=== PATIENT | female | born 1980 | race Caucasian/White ===

== ENCOUNTER 2016-06-28 20:47 | Emergency (ER) | payer OTHER ==
[2016-06-28 20:58] VITALS: RESP 18
--- NOTE | 2016-06-28 21:56 | ED ---
ENT HPI - General Chief complaint: ENT Stated complaint: Sore Throat Time Seen by Provider: 06/28/16 21:18 Source: patient, RN notes reviewed Mode of arrival: ambulatory Limitations: no limitations - History of Present Illness Initial comments: patient is a 35-year-old female since emergency room for evaluation of throat pain. Patient states she's diagnosed with strep throat about a week ago by primary care provider. Patient states she was placed on cefadroxil antibiotics. Patient states after taking it for a day it was not helping her symptoms so she went to [facility]. Patient states they gave her an antibiotic shot. patient states she still wasn't feeling better so she came back to [facility] today. patient states that they started blood work and they refused to give her any pain medications through the IV so she came here instead. patient states she has pain every time she swallows. Patient states she's been having on and off fevers. patient denies nausea or vomiting. Patient's chest pain or shortness of breath. Patient states she is up-to-date on immunizations. - Related Data Home Medications Medication Instructions Recorded Confirmed ALPRAZolam [Xanax] 1 mg PO Q8HR 11/28/14 12/16/15 Buprenorphine HCl/Naloxone HCl 1 each SL BID 04/14/15 12/16/15 [Suboxone 8 mg-2 mg Sl Film] Previous Rx's Medication Instructions Recorded Ibuprofen [Motrin] 800 mg PO Q6HR PRN #20 tab 04/14/15 LORazepam [Ativan] 1 mg PO TID #6 tab 10/21/15 levETIRAcetam [Keppra] 1,000 mg PO Q12HR #4 tab 10/21/15 LORazepam [Ativan] 1 mg PO BID #10 tab 12/16/15 methylPREDNISolone Dose Pack 4 mg PO DIRECTED #21 package 06/28/16 [Medrol Dose Pack] Allergies Allergy/AdvReac Type Severity Reaction Status Date / Time sulfamethoxazole AdvReac Diarrhea Verified 06/28/16 20:58 [From Bactrim] trimethoprim [From Bactrim] AdvReac Diarrhea Verified 06/28/16 20:58 Review of Systems ROS Statement: Those systems with pertinent positive or pertinent negative responses have been documented in the HPI. ROS Other: All systems not noted in ROS Statement are negative. Past Medical History Past Medical History: Asthma, GERD/Reflux, Seizure Disorder History of Any Multi-Drug Resistant Organisms: None Reported Past Surgical History: Appendectomy, Cholecystectomy, Hysterectomy Past Psychological History: Anxiety, Bipolar, PTSD Smoking Status: Current every day smoker Past Alcohol Use History: None Reported Past Drug Use History: Heroin General Exam - General Exam Comments Initial Comments: Sitting in Exam Room, No Acute Distress. Limitations: no limitations General appearance: alert, in no apparent distress Head exam: Present: atraumatic, normocephalic, normal inspection Eye exam: Present: normal appearance Expanded Throat exam: tonsillar erythema, tonsillomegaly, tonsillar exudate Neck exam: Present: normal inspection, full ROM. Absent: tenderness, lymphadenopathy Respiratory exam: Present: normal lung sounds bilaterally. Absent: respiratory distress Cardiovascular Exam: Present: regular rate, normal rhythm, normal heart sounds Extremities exam: Present: normal inspection Back exam: Present: normal inspection Neurological exam: Present: alert, oriented X3, CN II-XII intact Psychiatric exam: Present: normal affect, normal mood Skin exam: Present: warm, dry, intact, normal color. Absent: rash Course Vital Signs 06/28/16 20:52 Temperature 98.3 F Pulse Rate 83 Respiratory 18 Rate Blood Pressure 108/64 O2 Sat by Pulse 98 Oximetry Medical Decision Making - Medical Decision Making patient is a 35 female since emergency room for evaluation of throat pain. Patient has been seen 3 times this week for throat pain. rapid strep negative. Heterophile negative. CBC within normal limits. Will start patient on Medrol Dosepak to help with swelling. Advised patient to follow-up with primary care provider Thursday. Return parameters discussed. Case discussed with Dr. Singh. - Lab Data Result diagrams: 06/28/16 22:26 06/28/16 22:26 Lab Results 06/28/16 06/28/16 06/28/16 Range/Units 22:26 22:26 22:26 WBC 7.2 (3.8-10.6) k/uL RBC 4.37 (3.80-5.40) m/uL Hgb 12.9 (11.4-16.0) gm/dL Hct 38.3 (34.0-46.0) % MCV 87.6 (80.0-100.0) fL MCH 29.6 (25.0-35.0) pg MCHC 33.8 (31.0-37.0) g/dL RDW 13.1 (11.5-15.5) % Plt Count 309 (150-450) k/uL Neutrophils % 48 % Lymphocytes % 38 % Monocytes % 6 % Eosinophils % 5 % Basophils % 1 % Neutrophils # 3.5 (1.3-7.7) k/uL Lymphocytes # 2.8 (1.0-4.8) k/uL Monocytes # 0.4 (0-1.0) k/uL Eosinophils # 0.3 (0-0.7) k/uL Basophils # 0.1 (0-0.2) k/uL Sodium 146 H (137-145) mmol/L Potassium 3.6 (3.5-5.1) mmol/L Chloride 105 (98-107) mmol/L Carbon Dioxide 30 (22-30) mmol/L Anion Gap 11 mmol/L BUN 10 (7-17) mg/dL Creatinine 0.60 (0.52-1.04) mg/dL Est GFR (MDRD) Af Amer >60 (>60 ml/min/1.73 sqM) Est GFR (MDRD) Non-Af >60 (>60 ml/min/1.73 sqM) Glucose 91 (74-99) mg/dL Calcium 9.7 (8.4-10.2) mg/dL Total Bilirubin 0.3 (0.2-1.3) mg/dL AST 15 (14-36) U/L ALT 27 (9-52) U/L Alkaline Phosphatase 83 (38-126) U/L Total Protein 6.4 (6.3-8.2) g/dL Albumin 4.0 (3.5-5.0) g/dL Heterophile Antibody Negative (Negative) Group A Strep Rapid (Negative) 06/28/16 Range/Units 22:26 WBC (3.8-10.6) k/uL RBC (3.80-5.40) m/uL Hgb (11.4-16.0) gm/dL Hct (34.0-46.0) % MCV (80.0-100.0) fL MCH (25.0-35.0) pg MCHC (31.0-37.0) g/dL RDW (11.5-15.5) % Plt Count (150-450) k/uL Neutrophils % % Lymphocytes % % Monocytes % % Eosinophils % % Basophils % % Neutrophils # (1.3-7.7) k/uL Lymphocytes # (1.0-4.8) k/uL Monocytes # (0-1.0) k/uL Eosinophils # (0-0.7) k/uL Basophils # (0-0.2) k/uL Sodium (137-145) mmol/L Potassium (3.5-5.1) mmol/L Chloride (98-107) mmol/L Carbon Dioxide (22-30) mmol/L Anion Gap mmol/L BUN (7-17) mg/dL Creatinine (0.52-1.04) mg/dL Est GFR (MDRD) Af Amer (>60 ml/min/1.73 sqM) Est GFR (MDRD) Non-Af (>60 ml/min/1.73 sqM) Glucose (74-99) mg/dL Calcium (8.4-10.2) mg/dL Total Bilirubin (0.2-1.3) mg/dL AST (14-36) U/L ALT (9-52) U/L Alkaline Phosphatase (38-126) U/L Total Protein (6.3-8.2) g/dL Albumin (3.5-5.0) g/dL Heterophile Antibody (Negative) Group A Strep Rapid Negative (Negative) Disposition Clinical Impression: Pharyngitis Disposition: HOME SELF-CARE Condition: Good Instructions: Pharyngitis (ED) Additional Instructions: Take Medrol Dosepak as directed. Saltwater gargles. Please follow up with primary care provider on Thursday. If any new symptom arises or symptoms worsen, return to ER as soon as possible. Prescriptions: methylPREDNISolone Dose Pack [Medrol Dose Pack] 4 mg PO DIRECTED #21 package Referrals: Augustine Chairez DO [Primary Care Provider] - 1-2 days Time of Disposition: 23:35
[2016-06-28] MEDS ORDERED: LIDOCAINE VISCOUS 2% 15 ML CUP MUCOUS MEM ONE (21:59)
[2016-06-28 22:54] LABS: Basophils # (A) 0.1 k/uL (0-0.2); Basophils % (A) 1 %; CHCM 34.4; Eosinophils # (A) 0.3 k/uL (0-0.7); Eosinophils % (A) 5 %; HCT 38.3 % (34.0-46.0); HDW 2.84; HGB 12.9 gm/dL (11.4-16.0); Luc # (Auto) 0.19; Luc % (Auto) 3; Lymphocytes # (A) 2.8 k/uL (1.0-4.8); Lymphocytes % (A) 38 %; MCH 29.6 pg (25.0-35.0); MCHC 33.8 g/dL (31.0-37.0); MCV 87.6 fL (80.0-100.0); Mean Platelet Volume 7.2; Monocytes # (A) 0.4 k/uL (0-1.0); Monocytes % (A) 6 %; Neutrophils # (A) 3.5 k/uL (1.3-7.7); Neutrophils % (A) 48 %; RBC 4.37 m/uL (3.80-5.40); RDW 13.1 % (11.5-15.5); WBC 7.2 k/uL (3.8-10.6); WBC (Perox) 7.17
[2016-06-28 23:04] LABS: ALT 27 U/L (9-52); AST 15 U/L (14-36); Alkaline Phosphatase 83 U/L (38-126); Anion Gap 11 mmol/L; Blood Urea Nitrogen 10 mg/dL (7-17); Calcium 9.7 mg/dL (8.4-10.2); Carbon Dioxide 30 mmol/L (22-30); Chloride 105 mmol/L (98-107); Glucose 91 mg/dL (74-99); Non-African American GFR(MDRD) >60 (>60 ml/min/1.73 sqM); Potassium 3.6 mmol/L (3.5-5.1); Sodium 146 mmol/L (137-145); Total Bilirubin 0.3 mg/dL (0.2-1.3); Total Protein 6.4 g/dL (6.3-8.2)
[2016-06-28] MEDS ORDERED: methylPREDNISolone SOD SUCCI 125 MG/2 ML VIAL IV STA (23:37)
[2016-06-29 00:02] VITALS: BP 115/72; PULSE 78; TEMP 98.1
== END 2016-06-29 00:02 | disposition home or self-care (01) ==
LOC: EC 20:47
DX: J02.9 Acute pharyngitis, unspecified (principal); F31.9 Bipolar disorder, unspecified; F41.9 Anxiety disorder, unspecified; Z53.20 Procedure and treatment not carried out because of patient's decision for unspecified reasons; F17.200 Nicotine dependence, unspecified, uncomplicated; Z79.899 Other long term (current) drug therapy; Z88.2 Allergy status to sulfonamides
CPT/HCPCS: 36415; 80053; 85025; 86308; 87081; 87430; 99283

== ENCOUNTER 2017-02-16 10:00 | Emergency (ER) | payer OTHER ==
[2017-02-16 10:12] VITALS: RESP 18
--- NOTE | 2017-02-16 10:43 | ED ---
General Adult HPI - General Chief complaint: Psychiatric Symptoms Stated complaint: Suicidal Time Seen by Provider: 02/16/17 10:00 Source: patient, EMS, RN notes reviewed Mode of arrival: EMS Limitations: no limitations - History of Present Illness Initial comments: This is a 36-year-old female who presents emergency department stating that she has been having some suicidal thoughts even though she does not believe she'll act on them her depression is gotten much worse since before Daniel and she needs some help so she is reaching out to us today to see if we can point or in the right direction or maybe get her hooked up with a psychiatrist. Patient denies any physical complaints today. Patient denies any headache patient denies numbness weakness. Patient denies any chest pain palpitations difficulty breathing shortest breath. Patient denies abdominal pain patient denies nausea vomiting diarrhea. Patient states she is a former drug user and has not used any illegal drugs for 2 months - Related Data Home Medications Medication Instructions Recorded Confirmed Buprenorphine HCl/Naloxone HCl 1 film SL BID@0500,1500 04/14/15 02/16/17 [Suboxone 8 mg-2 mg Sl Film] Albuterol Inhaler [Ventolin Hfa 1 - 2 puff INHALATION RT-Q6H PRN 02/16/17 Inhaler] Dextroamphetamine/Amphetamine 20 mg PO TID PRN 02/16/17 02/16/17 [Adderall] LORazepam [Ativan] 1 mg PO TID PRN 02/16/17 02/16/17 Suvorexant [Belsomra] 10 - 20 mg PO HS PRN 02/16/17 02/16/17 levETIRAcetam [Keppra] 1,000 mg PO Q12HR PRN 02/16/17 02/16/17 Allergies Allergy/AdvReac Type Severity Reaction Status Date / Time sulfamethoxazole AdvReac Diarrhea Verified 02/16/17 10:27 [From Bactrim] trimethoprim [From Bactrim] AdvReac Diarrhea Verified 02/16/17 10:27 Opioids Allergy Severe SEE COMMENT Uncoded 02/16/17 10:27 Review of Systems ROS Statement: Those systems with pertinent positive or pertinent negative responses have been documented in the HPI. ROS Other: All systems not noted in ROS Statement are negative. Past Medical History Past Medical History: Asthma, GERD/Reflux, Seizure Disorder History of Any Multi-Drug Resistant Organisms: None Reported Past Surgical History: Appendectomy, Cholecystectomy, Hysterectomy Past Psychological History: Anxiety, Bipolar, PTSD Smoking Status: Current every day smoker Past Alcohol Use History: None Reported Past Drug Use History: Heroin General Exam - General Exam Comments Initial Comments: GENERAL: Patient is well-developed and well-nourished. Patient is nontoxic and well- hydrated and is in no acute distress. ENT: Neck is soft and supple. No significant lymphadenopathy is noted. Neck has full range of motion without eliciting any pain. EYES: The sclera were anicteric and conjunctiva were pink and moist. Extraocular movements were intact and pupils were equal round and reactive to light. Eyelids were unremarkable. PULMONARY: Unlabored respirations. Good breath sounds bilaterally. No audible rales rhonchi or wheezing was noted. CARDIOVASCULAR: There is a regular rate and rhythm without any murmurs gallops or rubs. ABDOMEN: Soft and nontender with normal bowel sounds. No palpable organomegaly was noted. There is no palpable pulsatile mass. SKIN: Skin is clear with no lesions or rashes and otherwise unremarkable. NEUROLOGIC: Patient is alert and oriented x3. Cranial nerves II through XII are grossly intact. Motor and sensory are also intact. Normal speech, volume and content. Symmetrical smile. MUSCULOSKELETAL: Normal extremities with adequate strength and full range of motion. No lower extremity swelling or edema. No calf tenderness. LYMPHATICS: No significant lymphadenopathy is noted PSYCHIATRIC: Patient states she is taking suicide but will not probably follow through. Patient states her depression is certainly worse. Limitations: no limitations Course Vital Signs 02/16/17 10:02 Temperature 98.7 F Pulse Rate 89 Respiratory 18 Rate Blood Pressure 124/69 O2 Sat by Pulse 98 Oximetry Medical Decision Making - Medical Decision Making [facility] came down and evaluated the patient and determined that the patient could follow-up this week and appointment was set up for. Patient was in agreement with this patient stated she would not be suicidal. - Lab Data Lab Results 02/16/17 Range/Units 12:01 Urine Opiates Screen Not Detected (NotDetected) Ur Oxycodone Screen Not Detected (NotDetected) Urine Methadone Screen Not Detected (NotDetected) Ur Propoxyphene Screen Not Detected (NotDetected) Ur Barbiturates Screen Not Detected (NotDetected) U Tricyclic Antidepress Not Detected (NotDetected) Ur Phencyclidine Scrn Not Detected (NotDetected) Ur Amphetamines Screen Detected H (NotDetected) U Methamphetamines Scrn Detected H (NotDetected) U Benzodiazepines Scrn Detected H (NotDetected) Urine Cocaine Screen Not Detected (NotDetected) U Marijuana (THC) Screen Not Detected (NotDetected) Disposition Clinical Impression: Methamphetamine abuse, Depression Disposition: HOME SELF-CARE Condition: Good Instructions: Depression (ED) Additional Instructions: Follow-up for [facility]'s directions Referrals: Augustine Chairez DO [Primary Care Provider] - 1-2 days Time of Disposition: 14:00
[2017-02-16 12:35] LABS: Amphetamine Screen,Urine Detected (NotDetected); Barbiturate Screen,Urine Not Detected (NotDetected); Benzodiazepines Screen,Urine Detected (NotDetected); Cocaine Screen,Urine Not Detected (NotDetected); Methadone Screen, Urine Not Detected (NotDetected); Opiate Screen,Urine Not Detected (NotDetected); Oxycodone Screen, Urine Not Detected (NotDetected); Phencyclidine Screen,Urine Not Detected (NotDetected); Tricyclic Antidepressant,Urine Not Detected (NotDetected); Urn Cannabinoid Scrn Not Detected (NotDetected)
[2017-02-16 14:16] VITALS: BP 118/69; PULSE 77; TEMP 97
== END 2017-02-16 14:14 | disposition home or self-care (01) ==
LOC: EC 10:00
DX: F15.10 Other stimulant abuse, uncomplicated (principal); F31.9 Bipolar disorder, unspecified; F41.9 Anxiety disorder, unspecified; F43.10 Post-traumatic stress disorder, unspecified; F17.200 Nicotine dependence, unspecified, uncomplicated; Z79.899 Other long term (current) drug therapy; Z88.1 Allergy status to other antibiotic agents; Z88.2 Allergy status to sulfonamides; Z88.5 Allergy status to narcotic agent
CPT/HCPCS: 80306; 82075; 99284

== ENCOUNTER 2017-11-11 17:28 | Emergency (ER) | payer OTHER ==
[2017-11-11 17:49] VITALS: RESP 18; TEMP 98.1
[2017-11-11] MEDS ORDERED: LORazepam 2 MG/ML INJ IV STA (18:18)
[2017-11-11] MEDS ORDERED: SODIUM CHLORIDE 0.9% 1,000 ML IV STA (18:18)
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
[2017-11-11 18:42] LABS: Appearance,Urine Clear (Clear); Bilirubin,Urine Negative (Negative); Blood,Urine Negative (Negative); Color,Urine Light Yellow; Glucose,Urine (UA) Negative (Negative); Ketones,Urine Negative (Negative); Leukocyte Esterase,Urine Negative (Negative); Nitrite,Urine Negative (Negative); Protein,Urine Negative (Negative); Specific Gravity,Urine 1.009 (1.001-1.035); Urobilinogen,Urine <2.0 mg/dL (<2.0)
[2017-11-11 18:46] LABS: Basophils # (A) 0.1 k/uL (0-0.2); Basophils % (A) 1 %; Eosinophils # (A) 0.4 k/uL (0-0.7); Eosinophils % (A) 5 %; HCT 42.9 % (34.0-46.0); Lymphocytes # (A) 2.2 k/uL (1.0-4.8); Lymphocytes % (A) 31 %; MCH 29.8 pg (25.0-35.0); MCHC 32.6 g/dL (31.0-37.0); MCV 91.3 fL (80.0-100.0); Mean Platelet Volume 6.4; Monocytes # (A) 0.5 k/uL (0-1.0); Monocytes % (A) 7 %; Neutrophils # (A) 3.9 k/uL (1.3-7.7); Neutrophils % (A) 55 %; Platelet Count 297 k/uL (150-450); RDW 12.9 % (11.5-15.5); WBC 7.1 k/uL (3.8-10.6)
[2017-11-11 18:53] LABS: Amphetamine Screen,Urine Detected (NotDetected); Barbiturate Screen,Urine Not Detected (NotDetected); Benzodiazepines Screen,Urine Detected (NotDetected); Cocaine Screen,Urine Not Detected (NotDetected); Methadone Screen, Urine Not Detected (NotDetected); Opiate Screen,Urine Not Detected (NotDetected); Oxycodone Screen, Urine Not Detected (NotDetected); Phencyclidine Screen,Urine Not Detected (NotDetected); Tricyclic Antidepressant,Urine Not Detected (NotDetected); Urn Cannabinoid Scrn Detected (NotDetected)
[2017-11-11 18:59] LABS: ALT 38 U/L (9-52); AST 36 U/L (14-36); Albumin 4.5 g/dL (3.5-5.0); Alkaline Phosphatase 62 U/L (38-126); Anion Gap 7 mmol/L; Blood Urea Nitrogen 11 mg/dL (7-17); Calcium 9.8 mg/dL (8.4-10.2); Carbon Dioxide 29 mmol/L (22-30); Chloride 105 mmol/L (98-107); Glucose 99 mg/dL (74-99); Potassium 4.5 mmol/L (3.5-5.1); Sodium 141 mmol/L (137-145); Total Bilirubin 0.6 mg/dL (0.2-1.3); Total Protein 7.2 g/dL (6.3-8.2)
--- NOTE | 2017-11-11 19:24 | CT ---
EXAMINATION TYPE: CT brain wo con DATE OF EXAM: 11/11/2017 COMPARISON: 04/14/2015 HISTORY: Head injury. History of seizures. CT DLP: 778.6 mGycm. Automated Exposure Control for Dose Reduction was Utilized. TECHNIQUE: CT scan of the head is performed without contrast. FINDINGS: Ventricles and sulci appear normal. There is no mass effect nor midline shift. There is no sign of intracranial hemorrhage. The calvarium is intact. Impression negative CT scan of the brain. No change.
[2017-11-11] MEDS ORDERED: KETOROLAC 30 MG/ML 1 ML VIAL IVP STA (19:26)
[2017-11-11] MEDS ORDERED: diphenhydrAMINE 50 MG/ML 1 ML VIAL IVP STA (19:26)
[2017-11-11] MEDS ORDERED: METOCLOPRAMIDE 5 MG/ML 2 ML VIAL IVP STA (19:26)
[2017-11-11 19:37] VITALS: BP 109/62; PULSE 72
== END 2017-11-11 20:15 | disposition home or self-care (01) ==
LOC: EC 17:28
DX: S06.0X0A Concussion without loss of consciousness, initial encounter (principal); G47.00 Insomnia, unspecified; F41.9 Anxiety disorder, unspecified; F31.9 Bipolar disorder, unspecified; F43.10 Post-traumatic stress disorder, unspecified; F17.200 Nicotine dependence, unspecified, uncomplicated; Z79.899 Other long term (current) drug therapy; Z88.2 Allergy status to sulfonamides; Z88.5 Allergy status to narcotic agent; V47.6XXA Car passenger injured in collision with fixed or stationary object in traffic accident, initial encounter; Y92.410 Unspecified street and highway as the place of occurrence of the external cause
CPT/HCPCS: 36415; 93005; 80053; 85025; 81003; 81025; 80306; 70450; 99284; 96374; 96375 ×3; 96361 ×2; J2060; J1200; J2765; J1885

== ENCOUNTER 2020-04-16 17:35 | Inpatient (IN) | payer OTHER ==
[2020-04-16] MEDS ORDERED: PIPERACILLIN-TAZOBACTAM 3.375 GM in SODIUM CHLORIDE 0.9% 100 ML IVPB ONE (22:00)
[2020-04-16] MEDS ORDERED: SODIUM CHLORIDE 0.9% 1,000 ML IV ONE ×2 (22:00→23:25)
[2020-04-16] MEDS ORDERED: SODIUM CHLORIDE 0.9% 500 ML 500 ML IV ONE (22:00)
--- NOTE | 2020-04-16 22:00 | ED ---
Skin/Abscess/FB HPI - General Chief complaint: Skin/Abscess/Foreign Body Stated complaint: abscess on arm Time Seen by Provider: 04/16/20 20:23 Source: patient Mode of arrival: wheelchair Limitations: no limitations - History of Present Illness Initial comments: 39-year-old female presenting today for chief complaint of right arm infection. Patient states for weeks she has had this right arm infection after using intravenous heroin. Patient states that she was embarrassed to, and so she waited 2-3 weeks. She states she cannot tolerate the pain or the swelling. She states is very odorous. Patient denies fevers she states she has felt unwell and admits to chills. Patient denies any additional complaints. She denies nausea vomiting chest pain shortness of breath. Patient is tachycardic on arrival, she is not altered/confused and is in good spirits-but overall appears unwell. - Related Data Home Medications Medication Instructions Recorded Confirmed Ativan (Unknown Strength) 1 tab PO DIRECTED 04/16/20 04/16/20 Ibuprofen [Motrin] 800 mg PO ONCE PRN 04/16/20 04/16/20 Allergies Allergy/AdvReac Type Severity Reaction Status Date / Time sulfamethoxazole AdvReac Diarrhea Verified 04/16/20 22:56 [From Bactrim] trimethoprim [From Bactrim] AdvReac Diarrhea Verified 04/16/20 22:56 Opioids Allergy Severe SEE COMMENT Uncoded 04/16/20 22:56 Review of Systems ROS Statement: Those systems with pertinent positive or pertinent negative responses have been documented in the HPI. ROS Other: All systems not noted in ROS Statement are negative. Past Medical History Past Medical History: Asthma, GERD/Reflux, Seizure Disorder History of Any Multi-Drug Resistant Organisms: None Reported Past Surgical History: Appendectomy, Cholecystectomy, Hysterectomy Past Psychological History: Anxiety, Bipolar, PTSD Smoking Status: Current every day smoker Past Alcohol Use History: None Reported Past Drug Use History: Heroin, Marijuana General Exam - General Exam Comments Initial Comments: General: The patient is awake and alert, in no distress Eye: +3 mm pupils are equal, round and reactive to light, extra-ocular movements are intact. No nystagmus. There is normal conjunctiva bilaterally. No signs of icterus. Ears, nose, mouth and throat: There are moist mucous membranes and no oral lesions. Neck: The neck is supple, there is no tenderness or JVD. Cardiovascular: There is a regular rate and rhythm. No murmur, rub or gallop is appreciated. Respiratory: Lungs are clear to auscultation, respirations are non-labored, breath sounds are equal. No wheezes, stridor, rales, or rhonchi. Gastrointestinal: Soft, non-distended, non-tender abdomen without masses or organomegaly noted. There is no rebound or guarding present. Musculoskeletal: Significant redness, induration wtih multiple large areas of actively draining abcess/eschar tissue, odorous with blue ring around largest most central lesion. can range at elbow and wrist. Strength 5/5. Sensation intact. Radial pulses equal bilaterally 2+. compartments are compressible but tense. Neurological: A&O x 3. CN II-XII intact grossly, There are no obvious motor or sensory deficits. Coordination appears grossly intact. Speech is normal. Skin: Skin is warm and dry and no rashes or lesions are noted. Psychiatric: Cooperative, appropriate mood & affect, normal judgment. Limitations: no limitations Course Vital Signs 04/16/20 04/16/20 18:09 23:33 Temperature 97.9 F Pulse Rate 109 H 131 H Respiratory 18 20 Rate Blood Pressure 103/64 96/79 O2 Sat by Pulse 98 97 Oximetry Medical Decision Making - Medical Decision Making 39-year-old feel presenting for right forearm abscess. There is signs of necrotic tissue, odorous concerning for gangrene. Patient has significant leukocytosis. She is tachycardic and her blood pressures on the lower aspect of normal. Patient was given IV fluid hydration. Both broad spectrum and MRSA coverage wtih IV abx. Patient did have a reaction to contrast that improved with solumedrol, pepcid and benadryl. Patient will be admitted on telemetry secondary to concern for sepsis, for right forearm abscess, which is felt to likely need surgical debridement/IV antibiotics. ID on consult. Surgery on consult. Dr. Martines is agreeable to care plan and admission - Lab Data Result diagrams: 04/16/20 22:20 04/16/20 22:20 Lab Results 04/16/20 04/16/20 04/16/20 Range/Units 22:20 22:20 22:20 WBC 20.0 H (3.8-10.6) k/uL RBC 5.07 (3.80-5.40) m/uL Hgb 13.8 (11.4-16.0) gm/dL Hct 41.4 (34.0-46.0) % MCV 81.6 (80.0-100.0) fL MCH 27.2 (25.0-35.0) pg MCHC 33.3 (31.0-37.0) g/dL RDW 13.7 (11.5-15.5) % Plt Count 392 (150-450) k/uL MPV 6.9 Neutrophils % 85 % Lymphocytes % 10 % Monocytes % 3 % Eosinophils % 2 % Basophils % 0 % Neutrophils # 17.0 H (1.3-7.7) k/uL Lymphocytes # 1.9 (1.0-4.8) k/uL Monocytes # 0.6 (0-1.0) k/uL Eosinophils # 0.3 (0-0.7) k/uL Basophils # 0.1 (0-0.2) k/uL Sodium 136 L (137-145) mmol/L Potassium 3.6 (3.5-5.1) mmol/L Chloride 98 (98-107) mmol/L Carbon Dioxide 27 (22-30) mmol/L Anion Gap 11 mmol/L BUN 9 (7-17) mg/dL Creatinine 0.51 L (0.52-1.04) mg/dL Est GFR (CKD-EPI)AfAm >90 (>60 ml/min/1.73 sqM) Est GFR (CKD-EPI)NonAf >90 (>60 ml/min/1.73 sqM) Glucose 151 H (74-99) mg/dL Plasma Lactic Acid Fernando 1.6 (0.7-2.0) mmol/L Calcium 9.4 (8.4-10.2) mg/dL Total Bilirubin 0.6 (0.2-1.3) mg/dL AST 39 H (14-36) U/L ALT 66 H (4-34) U/L Alkaline Phosphatase 123 (38-126) U/L Total Protein 7.9 (6.3-8.2) g/dL Albumin 4.3 (3.5-5.0) g/dL Disposition Clinical Impression: Abscess of right forearm, Sepsis, Allergy to imaging contrast media Disposition: ADMITTED IP TO THIS [facility] Condition: Serious Is patient prescribed a controlled substance at d/c from ED?: No Time of Disposition: 23:39 Decision to Admit Reason: Admit from EC Decision Date: 04/16/20 Decision Time: 23:40
[2020-04-16] MEDS ORDERED: VANCOMYCIN IV PER PHARMACY 1 EACH MISC MISCELLANE PRN (22:01)
[2020-04-16] MEDS ORDERED: HYDROmorphone 0.5 MG/0.5 ML SYRINGE IVP STA (22:25)
[2020-04-16] MEDS ORDERED: KETOROLAC 15 MG/ML 1 ML VIAL IVP STA (22:25)
[2020-04-16 22:38] LABS: Basophils # (A) 0.1 k/uL (0-0.2); Basophils % (A) 0 %; Eosinophils # (A) 0.3 k/uL (0-0.7); Eosinophils % (A) 2 %; HCT 41.4 % (34.0-46.0); HGB 13.8 gm/dL (11.4-16.0); Lymphocytes # (A) 1.9 k/uL (1.0-4.8); Lymphocytes % (A) 10 %; MCH 27.2 pg (25.0-35.0); MCHC 33.3 g/dL (31.0-37.0); MCV 81.6 fL (80.0-100.0); Mean Platelet Volume 6.9; Monocytes # (A) 0.6 k/uL (0-1.0); Monocytes % (A) 3 %; Neutrophils % (A) 85 %; Platelet Count 392 k/uL (150-450); RBC 5.07 m/uL (3.80-5.40); RDW 13.7 % (11.5-15.5)
[2020-04-16 22:48] LABS: ALT 66 U/L (4-34); AST 39 U/L (14-36); African American GFR (CKD) >90 (>60 ml/min/1.73 sqM); Albumin 4.3 g/dL (3.5-5.0); Alkaline Phosphatase 123 U/L (38-126); Anion Gap 11 mmol/L; Blood Urea Nitrogen 9 mg/dL (7-17); Calcium 9.4 mg/dL (8.4-10.2); Carbon Dioxide 27 mmol/L (22-30); Chloride 98 mmol/L (98-107); Glucose 151 mg/dL (74-99); Non-African American GFR(CKD) >90 (>60 ml/min/1.73 sqM); Potassium 3.6 mmol/L (3.5-5.1); Sodium 136 mmol/L (137-145); Total Bilirubin 0.6 mg/dL (0.2-1.3); Total Protein 7.9 g/dL (6.3-8.2)
[2020-04-16] MEDS ORDERED: LIDOCAINE 1% INJ 10MG/ML (20 ML MDV) SQ ONE (22:54)
[2020-04-16] MEDS ORDERED: VANCOMYCIN 1,000 MG in SODIUM CHLORIDE 0.9% 250 ML IVPB ONE (23:00)
[2020-04-16] MEDS: SODIUM CHLORIDE 0.9% 1,000 ML IV SCH (23:11)
[2020-04-16] MEDS ORDERED: FAMOTIDINE 20 MG/2 ML VIAL IV STA (23:24)
[2020-04-16] MEDS ORDERED: diphenhydrAMINE 50 MG/ML 1 ML VIAL IVP STA (23:24)
[2020-04-16] MEDS ORDERED: methylPREDNISolone SOD SUCCI 125 MG/2 ML VIAL IV STA (23:24)
[2020-04-16] MEDS ORDERED: NALOXONE 0.4 MG/ML 1 ML VIAL IV PRN (23:44)
--- NOTE | 2020-04-16 23:56 | CT ---
EXAMINATION TYPE: CT forearm RT w con DATE OF EXAM: 04/16/2020 COMPARISON: None HISTORY: abscess CT DLP: 502 mGycm Automated exposure control for dose reduction was used. CONTRAST: Performed with IV Contrast, patient injected with 100 mL of Isovue 300. Images obtained from the level of the proximal humerus to the metacarpals with IV contrast. The humerus is intact there is normal contrast opacification of the brachial artery. There is arteria l flow in the radial and ulnar arteries. There are multiple air bubbles and soft tissue swelling invo lving the anterior mid forearm this measures 19 x 13 mm in the transverse images. Complex mass measur es 2.4 cm in length. There is small fluid collection. Mass involves the superficial soft tissues and subcutaneous fat. Muscles of the forearm appear intact. There is normal venous contrast opacification of the forearm. There are a few air bubbles in the soft tissues extending distally to almost the rad ial metaphysis. IMPRESSION: Complex mass in the subcutaneous tissues over the anterior mid forearm consistent with an abscess wit h soft tissue air. No muscle involvement. No evidence of vascular involvement.
[2020-04-17] MEDS ORDERED: LORazepam 2 MG/ML INJ IV STA (00:01)
[2020-04-17] MEDS: SODIUM CHLORIDE 0.9% 1,000 ML IV SCH ×3 (02:30→20:54)
[2020-04-17] MEDS: VANCOMYCIN 1,000 MG in SODIUM CHLORIDE 0.9% 250 ML IVPB SCH ×3 (07:29→22:37)
[2020-04-17] MEDS: HYDROmorphone 1 MG/ML 1 ML SYRINGE IVP PRN ×4 (07:30→20:52)
[2020-04-17] MEDS: KETOROLAC 15 MG/ML 1 ML VIAL IVP PRN (10:54)
[2020-04-17] MEDS: LORazepam 2 MG/ML INJ IV PRN ×2 (11:46→20:53)
--- NOTE | 2020-04-17 12:01 | P.GSCN ---
History of Present Illness Consult date: 04/17/20 History of present illness: CHIEF COMPLAINT: right arm pain HISTORY OF PRESENT ILLNESS: This is a 39-year-old female with a known history of IV drug abuse, asthma, seizure disorder, bipolar, anxiety, PTSD, nicotine dependence. Patient presents to the ER with swelling and pain of the right forearm. Patient reports she had symptoms of pain and swelling about a month ago. She says that it went away for about a week and then came back. Patient admits to using her right arm for IV drug use with heroin. Patient has significant swelling and abscess formation. She is on IV antibiotics. White count elevated at 20. She's never had an abscess before. She denies any fever chills or sweats. She does admit to having nausea. PAST MEDICAL HISTORY: See list. PAST SURGICAL HISTORY: See list. MEDICATIONS: See list. ALLERGIES: See list. SOCIAL HISTORY: No illicit drug use. REVIEW OF SYSTEMS: CONSTITUTIONAL: Denies fever or chills. HEENT: Denies blurred vision, vision changes, or eye pain. Denies hemoptysis CARDIOVASCULAR: Denies chest pain or pressure. RESPIRATORY: No shortness of breath. GASTROINTESTINAL: See HPI for pertinent findings HEMATOLOGIC: Denies bleeding disorders. GENITOURINARY: Denies any blood in urine or increased urinary frequency. SKIN: Denies pruitis. Denies rash. PHYSICAL EXAM: VITAL SIGNS: Reviewed GENERAL: Well-developed in no acute distress. HEENT: No sclera icterus. Extraocular movements grossly intact. Moist buccal mucosa. Head is atraumatic, normocephalic. No nasal drainage. ABDOMEN: Soft. Nondistended. Nontender NEUROLOGIC: Alert and oriented. Cranial nerves II through XII grossly intact. Extremities: Right mid forearm abscess. Patient has about a 2 cm circular ulceration that is black around the edges. There is also a grayish tissue over the ulceration. Some minimal drainage noted. She does have significant induration of the entire forearm. it's red and painful with palpation LABORATORY DATA: WBC 20 Hgb 13.8 sodium 136 potassium 3.6 creatinine 0.51 lactic 1.6 IMAGING: CT scan of right forearm complex mass in the subcutaneous tissues over the anterior mid forearm consistent with an abscess with soft tissue air. No muscle involvement. No evidence of vascular involvement. ASSESSMENT: 1. Right forearm abscess with cellulitis and computed tomography scan consistent of right mid forearm abscess with soft tissue air. 2. History of IV drug use PLAN: -Patient is scheduled for incision and drainage of abscess of right forearm today with Dr. Cm -Keep patient nothing by mouth -Continue IV fluids -Continue antibiotics -Continue pain medication as needed Thank you for this consultation Physician Greeter note has been reviewed by physician. Signing provider agrees with the documented findings, assessment, and plan of care. Past Medical History Past Medical History: Asthma, GERD/Reflux, Seizure Disorder History of Any Multi-Drug Resistant Organisms: None Reported Past Surgical History: Appendectomy, Cholecystectomy, Hysterectomy Past Anesthesia/Blood Transfusion Reactions: No Reported Reaction Past Psychological History: Anxiety, Bipolar, PTSD Smoking Status: Current every day smoker Past Alcohol Use History: None Reported Past Drug Use History: Heroin, Marijuana Medications and Allergies Home Medications Medication Instructions Recorded Confirmed Type Ativan (Unknown Strength) 1 tab PO DIRECTED 04/16/20 04/16/20 History Ibuprofen [Motrin] 800 mg PO ONCE PRN 04/16/20 04/16/20 History Allergies Allergy/AdvReac Type Severity Reaction Status Date / Time sulfamethoxazole AdvReac Diarrhea Verified 04/16/20 22:56 [From Bactrim] trimethoprim [From Bactrim] AdvReac Diarrhea Verified 04/16/20 22:56 Opioids Allergy Severe SEE COMMENT Uncoded 04/16/20 22:56 Surgical - Exam Vital Signs Temp Pulse Resp BP Pulse Ox 97.9 F 109 H 18 103/64 98 04/16/20 18:09 04/16/20 18:09 04/16/20 18:09 04/16/20 18:09 04/16/20 18:09 Results - Labs 04/16/20 22:20 04/16/20 22:20 Abnormal Lab Results - Last 24 Hours (Table) 04/16/20 04/16/20 Range/Units 22:20 22:20 WBC 20.0 H (3.8-10.6) k/uL Neutrophils # 17.0 H (1.3-7.7) k/uL Sodium 136 L (137-145) mmol/L Creatinine 0.51 L (0.52-1.04) mg/dL Glucose 151 H (74-99) mg/dL AST 39 H (14-36) U/L ALT 66 H (4-34) U/L Microbiology - Last 24 Hours (Table) 04/16/20 23:40 Gram Stain - Preliminary Arm - Right Wound Culture - Preliminary Diabetes panel 04/16/20 Range/Units 22:20 Sodium 136 L (137-145) mmol/L Potassium 3.6 (3.5-5.1) mmol/L Chloride 98 (98-107) mmol/L Carbon Dioxide 27 (22-30) mmol/L BUN 9 (7-17) mg/dL Creatinine 0.51 L (0.52-1.04) mg/dL Glucose 151 H (74-99) mg/dL Calcium 9.4 (8.4-10.2) mg/dL AST 39 H (14-36) U/L ALT 66 H (4-34) U/L Alkaline Phosphatase 123 (38-126) U/L Total Protein 7.9 (6.3-8.2) g/dL Albumin 4.3 (3.5-5.0) g/dL Calcium panel 04/16/20 Range/Units 22:20 Calcium 9.4 (8.4-10.2) mg/dL Albumin 4.3 (3.5-5.0) g/dL Pituitary panel 04/16/20 Range/Units 22:20 Sodium 136 L (137-145) mmol/L Potassium 3.6 (3.5-5.1) mmol/L Chloride 98 (98-107) mmol/L Carbon Dioxide 27 (22-30) mmol/L BUN 9 (7-17) mg/dL Creatinine 0.51 L (0.52-1.04) mg/dL Glucose 151 H (74-99) mg/dL Calcium 9.4 (8.4-10.2) mg/dL Adrenal panel 04/16/20 Range/Units 22:20 Sodium 136 L (137-145) mmol/L Potassium 3.6 (3.5-5.1) mmol/L Chloride 98 (98-107) mmol/L Carbon Dioxide 27 (22-30) mmol/L BUN 9 (7-17) mg/dL Creatinine 0.51 L (0.52-1.04) mg/dL Glucose 151 H (74-99) mg/dL Calcium 9.4 (8.4-10.2) mg/dL Total Bilirubin 0.6 (0.2-1.3) mg/dL AST 39 H (14-36) U/L ALT 66 H (4-34) U/L Alkaline Phosphatase 123 (38-126) U/L Total Protein 7.9 (6.3-8.2) g/dL Albumin 4.3 (3.5-5.0) g/dL
--- NOTE | 2020-04-17 12:35 | P.HPIM ---
History of Present Illness 39-year-old female with IV drug abuse history came in with swelling in the right forearm found to have systolic and cellulitis of the right forearm. Patient will undergo incision and drainage and patient is presently on IV vancomycin patient has leukocytosis with white blood cell count of 20,000 patient doesn't have any fevers. Patient admits to using heroin. Patient has a swelling going on for last week. Patient was never tested for hepatitis C admits to IV drug use for about 5 years. Does have history of PTSD, bipolar disorder and seizure disorder Review of Systems REVIEW OF SYSTEMS: CONSTITUTIONAL: No fever, no malaise, no fatigue. HEENT: No recent visual problems or hearing problems. Denied any sore throat. CARDIOVASCULAR: No chest pain, orthopnea, PND, no palpitations, no syncope. PULMONARY: No shortness of breath, no cough, no hemoptysis. GASTROINTESTINAL: No diarrhea, no nausea, no vomiting, no abdominal pain. NEUROLOGICAL: No headaches, no weakness, no numbness. HEMATOLOGICAL: Denies any bleeding or petechiae. GENITOURINARY: Denies any burning micturition, frequency, or urgency. MUSCULOSKELETAL/RHEUMATOLOGICAL: Denies any joint pain, swelling, or any muscle pain. ENDOCRINE: Denies any polyuria or polydipsia. The rest of the 14-point review of systems is negative. Past Medical History Past Medical History: Asthma, GERD/Reflux, Seizure Disorder History of Any Multi-Drug Resistant Organisms: None Reported Past Surgical History: Appendectomy, Cholecystectomy, Hysterectomy Past Anesthesia/Blood Transfusion Reactions: No Reported Reaction Past Psychological History: Anxiety, Bipolar, PTSD Smoking Status: Current every day smoker Past Alcohol Use History: None Reported Past Drug Use History: Heroin, Marijuana Medications and Allergies Home Medications Medication Instructions Recorded Confirmed Type Ativan (Unknown Strength) 1 tab PO DIRECTED 04/16/20 04/16/20 History Ibuprofen [Motrin] 800 mg PO ONCE PRN 04/16/20 04/16/20 History Allergies Allergy/AdvReac Type Severity Reaction Status Date / Time sulfamethoxazole AdvReac Diarrhea Verified 04/16/20 22:56 [From Bactrim] trimethoprim [From Bactrim] AdvReac Diarrhea Verified 04/16/20 22:56 Opioids Allergy Severe SEE COMMENT Uncoded 04/16/20 22:56 Physical Exam Vitals: Vital Signs Temp Pulse Pulse Resp BP BP Pulse Ox 04/17/20 08:00 95 16 04/17/20 07:00 97.4 F L 95 16 93/56 04/17/20 01:07 102 H 04/17/20 01:05 98.9 F 102 H 100/61 97 04/17/20 00:08 97.9 F 131 H 20 96/79 97 04/16/20 23:33 131 H 20 96/79 97 04/16/20 18:09 97.9 F 109 H 18 103/64 98 Intake and Output 04/16/20 04/17/20 04/17/20 22:59 06:59 14:59 Other: Voiding Method Toilet Toilet # Voids 1 Weight 49.895 kg 49.895 kg PHYSICAL EXAMINATION: GENERAL: The patient is alert and oriented x3, not in any acute distress. Well developed, well nourished. HEENT: Pupils are round and equally reacting to light. EOMI. No scleral icterus. No conjunctival pallor. Normocephalic, atraumatic. No pharyngeal erythema. No thyromegaly. CARDIOVASCULAR: S1 and S2 present. No murmurs, rubs, or gallops. PULMONARY: Chest is clear to auscultation, no wheezing or crackles. ABDOMEN: Soft, nontender, nondistended, normoactive bowel sounds. No palpable o rganomegaly. MUSCULOSKELETAL: No joint swelling or deformity. EXTREMITIES: No cyanosis, clubbing, or pedal edema. NEUROLOGICAL: Gross neurological examination did not reveal any focal deficits. SKIN: Patient has an abscess with surrounding cellulitis in the right mid forearm flexor aspect with a significant tenderness. Results CBC & Chem 7: 04/16/20 22:20 04/16/20 22:20 Labs: Abnormal Lab Results - Last 24 Hours (Table) 04/16/20 04/16/20 Range/Units 22:20 22:20 WBC 20.0 H (3.8-10.6) k/uL Neutrophils # 17.0 H (1.3-7.7) k/uL Sodium 136 L (137-145) mmol/L Creatinine 0.51 L (0.52-1.04) mg/dL Glucose 151 H (74-99) mg/dL AST 39 H (14-36) U/L ALT 66 H (4-34) U/L Microbiology - Last 24 Hours (Table) 04/16/20 23:40 Gram Stain - Preliminary Arm - Right Wound Culture - Preliminary Thrombosis Risk Factor Assmnt - Choose All That Apply Each Factor Represents 1 point: Age 41-60 years Thrombosis Risk Factor Assessment Total Risk Factor Score: 1 Thrombosis Risk Factor Assessment Level: Low Risk Assessment and Plan Plan: -Right forearm abscess secondary to IV drug use patient will undergo incision and drainage patient will be continued on IV vancomycin. Wound cultures will be obtained with incision and drainage. Patient is already in opiates for pain which will try to avoid and patient will be started on Toradol for pain. -IV drug use history: We'll test for hepatitis C. -Nicotine use: Counseling was provided -History of PTSD as per the medical records but patient is not on any medications patient probably will need to follow with [facility] upon discharge. -Tachycardia secondary to sepsis continue with IV fluids GI prophylaxis with IV Protonix, DVT prophylaxis early ambulation
[2020-04-17] MEDS: PANTOPRAZOLE 40 MG/10 ML VIAL IVP SCH (13:00)
[2020-04-17 13:46] VITALS: BMI 19.5
[2020-04-17] MEDS ORDERED: IV FLUID CONTINUATION 1,000 ML IV ONE (16:29)
[2020-04-17 18:03] LABS: Hepatitis A Antibody IgM Non-Reactive (Non-Reactive); Hepatitis B Core IgM Non-Reactive (Non-Reactive); Hepatitis C IgG Antibody Reactive (Non-Reactive)
[2020-04-17] MEDS ORDERED: LIDOCAINE 1% INJ 10MG/ML (20 ML MDV) ONE (18:05)
[2020-04-17] MEDS ORDERED: fentaNYL (PF) 50 MCG/ML 2 ML AMP ONE (18:05)
[2020-04-17] MEDS ORDERED: MIDAZOLAM 2 MG/2 ML VIAL ONE (18:05)
[2020-04-17] MEDS ORDERED: PROPOFOL 10 MG/ML 20 ML VIAL IV ONE (18:05)
[2020-04-17] MEDS ORDERED: HYDROmorphone (PF) 1 MG/ML ONE (18:05)
[2020-04-17] MEDS ORDERED: SUCCINYLCHOLINE CHLORIDE 100 MG/5 ML SYR IV ONE (18:05)
--- NOTE | 2020-04-17 18:30 | P.OP ---
Date of Procedure: 04/17/20 Preoperative Diagnosis: Right forearm abscess Postoperative Diagnosis: Forearm abscess Procedure(s) Performed: Drains right forearm abscess Anesthesia: RAUL Surgeon: Shahbaz Cm Estimated Blood Loss (ml): 5 Pathology: other (Wound culture) Condition: stable Description of Procedure: The patient's placed on the operative table in supine position. She received general endotracheal tube anesthesia. Her right arm was prepped and draped in sterile fashion. The necrotic skin was debrided with sharp dissection. The abscess appeared to track along the superficial vein the skin incision was extended approximately 2 inches. The area was irrigated and then packed with wet-to-dry Kerlix. Patient top she will was sent to recovery in stable condition.
[2020-04-17] MEDS ORDERED: diphenhydrAMINE 50 MG/ML 1 ML VIAL IVP ONE (18:50)
[2020-04-17] MEDS ORDERED: HYDROmorphone 0.5 MG/0.5 ML SYRINGE IVP ONE (18:55)
[2020-04-17] MEDS ORDERED: KETOROLAC 15 MG/ML 1 ML VIAL IVP ONE (18:56)
[2020-04-17] MEDS ORDERED: SODIUM CHLORIDE 0.9% 1,000 ML IV ONE (19:22)
[2020-04-18] MEDS: LORazepam 2 MG/ML INJ IV PRN ×4 (01:12→22:31)
[2020-04-18] MEDS: HYDROmorphone 1 MG/ML 1 ML SYRINGE IVP PRN ×6 (01:12→20:28)
[2020-04-18] MEDS: SODIUM CHLORIDE 0.9% 1,000 ML IV SCH ×3 (04:47→19:13)
[2020-04-18] MEDS: KETOROLAC 15 MG/ML 1 ML VIAL IVP PRN ×3 (04:52→21:45)
--- NOTE | 2020-04-18 06:23 | CONS ---
CONSULTATION DATE OF SERVICE: 04/17/2020 REASON FOR CONSULTATION: Right forearm abscess. HISTORY OF PRESENT ILLNESS: The patient is a 39-year-old female, past medical history significant for IV drug use in this patient who has injury to the right forearm which is subsequent getting swollen and red over the last week or so. With the area becoming more swollen and red and painful, the patient presented to the hospital. The patient is describing the pain to be throbbing with intensity almost 10/10. No cellulitis. The patient did have some foul-smelling drainage. The patient did have some chills but denies high- grade fever. With these symptoms, the patient was evaluated by the physician on arrival to the ER. The patient has been afebrile. She did have a white count of 20,000 with left shift. BUN of 10, creatinine 0.51. positive. Patel PCR was negative. The patient has been diagnosed with right forearm abscess. Has been evaluated by General Surgery and did have drainage of this abscess. She has been treated empirically with vancomycin. Infectious Disease was consulted for further management of antibiotic therapy. REVIEW OF SYSTEMS: Positive points have been mentioned in HPI. Rest of the systems are negative. PAST MEDICAL HISTORY: Asthma, disorder, PTSD, bipolar. PAST SURGICAL HISTORY: Appendectomy, cholecystectomy, hysterectomy. SOCIAL HISTORY: Current everyday smoker. Admits to IV drug use and marijuana use. FAMILY HISTORY: No pertinent findings noticed. ALLERGIES: BACTRIM. MEDICATIONS: The patient is currently on vancomycin, Pharmacy to dose, IV fluid, Protonix, Narcan, Ativan, Toradol, . PHYSICAL EXAMINATION: VITAL SIGNS: Blood pressure 129/67, pulse of 78, temperature 98.8, she is 95% on room air. GENERAL DESCRIPTION: A middle-aged female lying in bed in no distress. No tachypnea or accessory muscles of respiration use. HEENT: Examination shows no pallor or scleral icterus. Oral mucous membrane is dry. NECK: Trachea central. No thyromegaly. LUNGS: Unlabored breathing, clear to auscultation anteriorly. No wheeze or crackles. HEART: S1, S2. Regular rate and rhythm. ABDOMEN: Soft, no tenderness. No guarding or rigidity. SKIN: Left arm is currently dressed up. No obvious drainage on the dressing. EXTREMITIES: No edema of the feet. NEUROLOGICAL: Patient is awake, alert, oriented times three. Mood and affect normal. LAB: Hemoglobin 13.1, white count 20,000, BUN of 9, creatinine 0.51. DIAGNOSTIC IMPRESSION: Patient with right forearm abscess from IV drug use, likely secondary to gram-positive skin jose such as an MRSA and strep in this patient who is status post surgical debridement with IV drug use to be the risk factor. PLAN: 1. Vancomycin, Pharmacy to dose target of 15 while waiting for the culture to finalize. 2. We will follow on clinical condition and further adjust medication if needed. Thank you for this consultation. Will follow this patient along with you. MMODL / IJN: [id number] /
[2020-04-18] MEDS: VANCOMYCIN 1,000 MG in SODIUM CHLORIDE 0.9% 250 ML IVPB SCH (08:46)
[2020-04-18] MEDS: PANTOPRAZOLE 40 MG/10 ML VIAL IVP SCH (08:46)
--- NOTE | 2020-04-18 09:41 | CDI ---
Documentation Clarification Form Date: 04/18/2020 09:14:14 AM From: Ivett Gross RN, CCDS Admit Date: 04/16/2020 11:46:00 PM Patient Name: Renetta Joe Visit Number: [id number] Discharge Date: ATTENTION: The Clinical Documentation Specialists (CDI) and [facility] Coding Staff appreciate your assistance in clarifying documentation. Please respond to the clarification below the line at the bottom and electronically sign. The CDI & [facility] Coding staff will review the response and follow-up if needed. Please note: Queries are made part of the Legal Health Record. If you have any questions, please contact the author of this message via ITS. Dr. Shahbaz Cm Per your progress notes/operative note, a debridement was performed on right for arm abscess on 04/17/20. To accurately capture the procedure please further specify technique used for the procedure History/Risk Factors: IVDA, Asthma, Seizure Disorder PTSD, Current every day smoker, Bipolar Clinical Indicators: 39-year-old female present with complaints of pain right forearm, ruled in for abscess with cellulitis. 04/16 Vital signs on admission 103/64 109 18 97.9 98 % RA. 04/16 Wound culture preliminary: Presumptive Staph aureus 04/16 Blood culture No Growth after 24 hours Treatment: 04/17 Debridement of right forearm abscess Toradol 15 MG IVPB Q6HR PRN Dilaudid 1MG IVP Q4HR PRN Vancomycin 1,000 mg IVPB Q 8HRS .9NS @130 MLS/HR IV Five elements required for accurate and compliant documentation of a debridement: 1. Technique used (e.g., excisional, excised, cutting, etc.) 2. Instrument(s) used (e.g., scalpel, curette, etc.) 3. Nature of the tissue removed (e.g., necrotic, devitalized tissues, non- viable tissue, etc.) 4. Appearance and size of the wound (e.g., down to fresh bleeding tissue, 7cm x 10cm, etc.) 5. Depth of the debridement* (e.g., skin, subcutaneous tissue, fascia, muscle, bone, etc.) In order to capture the severity of condition and code the appropriate procedure; could you please document the following: Excisional debridement (the removal of necrotic, devitalized tissue or slough by means of cutting away of tissue) Non-excisional debridement (the removal of necrotic, devitalized tissue or slough by means of flushing, brushing, or washing. (Irrigation) Other; please specify Unable to determine (Last Revision: May 2017) The 15 blade scalpel was used to excise tissue. The necrotic skin and subcutaneous fat was debrided. The wound measured approximately 3 x 5 x 1 cm MTDD
[2020-04-18] MEDS: NICOTINE 21MG/24HR PATCH TRANSDERM SCH (10:06)
[2020-04-18 10:16] LABS: HGB 9.5 g/dL (12.0-15.0); MCH 26.8 pg (27.0-32.0); MCHC 31.7 g/dL (32.0-37.0); MCV 84.5 fL (80.0-97.0); Platelet Count 387 X 10*3/uL (140-440); RBC 3.55 X 10*6/uL (4.10-5.20); RDW 13.7 % (11.5-14.5); WBC 14.32 X 10*3/uL (4.50-10.00)
[2020-04-18 11:12] LABS: African American GFR (CKD) 139.3 (60.0-200.0); Albumin 2.9 g/dL (3.80-4.90); Albumin/Globulin Ratio 1.53 (1.60-3.17); Anion Gap 8.2 mmol/L (4.00-12.00); Calcium 7.7 mg/dL (8.7-10.3); Carbon Dioxide 24.8 mmol/L (21.6-31.8); Globulin 1.9 g/dL (1.6-3.3); Non-African American GFR(CKD) 120.2 (60.0-200.0); Potassium 3.6 mmol/L (3.5-5.5); Total Bilirubin 0.1 mg/dL (0.2-1.2); Total Protein 4.8 g/dL (6.2-8.2)
[2020-04-18] MEDS: HYDROcodone/APAP 5-325MG 1 EACH TAB PO PRN ×3 (12:06→23:30)
[2020-04-18] MEDS ORDERED: HYDROmorphone 1 MG/ML 1 ML SYRINGE IVP PRN (14:11)
--- NOTE | 2020-04-18 14:35 | P.PN ---
Subjective Progress Note Date: 04/18/20 39-year-old female with IV drug abuse history came in with swelling in the right forearm found to have systolic and cellulitis of the right forearm. Patient will undergo incision and drainage and patient is presently on IV vancomycin patient has leukocytosis with white blood cell count of 20,000 patient doesn't have any fevers. Patient admits to using heroin. Patient has a swelling going on for last week. Patient was never tested for hepatitis C admits to IV drug use for about 5 years. Does have history of PTSD, bipolar disorder and seizure disorder 04/18/2020 Patient is seen and evaluated in follow-up and recently underwent incision and drainage with surgery for cellulitis of the right forearm as she uses heroin and is an IV drug abuser. Patient continues to request pain medication stating she is in 10 out of 10 pain scale and severe anxiety and requesting an increase in her medications. Patient's blood pressure has been on the lower side and nursing staff does not feel comfortable with giving IV pain medications along with Ativan with her blood pressure being that low. Patient does have Toradol along with oral pain medications that she has been instructed to use. Patient is maintained on IV hydration along with IV vancomycin and will continue at this time. Infectious disease following an waiting on cultures. Preliminary culture showing presumptive staph aureus with beta hemolytic strep group C. Review of systems: Constitutional: No reports of fatigue, fever, or chills, reports anxiety Cardiovascular: No reports of chest pain or palpitations Respiratory: No reports of shortness of breath or cough GI: No reports of nausea, vomiting, or diarrhea : No reports of dysuria or retention Neurovascular: No reports of weakness or numbness All medications have been reviewed Objective - Vital Signs Vital signs: Vital Signs Temp 98.3 F 04/18/20 08:43 Pulse 84 04/18/20 14:00 Resp 18 04/18/20 14:00 BP 101/69 04/18/20 10:10 Pulse Ox 99 04/18/20 08:43 Intake & Output 04/17/20 04/18/20 04/18/20 18:59 06:59 18:59 Intake Total 1960 790 500 Output Total 5 Balance 1954 790 500 Weight 49.895 kg Intake: IV 550 150 Intake, IV Titration 1410 640 Amount Sodium Chloride 0.9% 1, 910 390 000 ml @ 100 mls/hr IV . Q10H GIOVANNA Rx#:[id number] Vancomycin 1,000 mg In 500 250 Sodium Chloride 0.9% 250 ml @ 125 mls/hr IVPB Q8H GIOVANNA Rx#:[id number] Oral 0 500 Output: Estimated Blood Loss 5 Other: Voiding Method Toilet Toilet Toilet # Voids 2 2 4 - Exam GENERAL: The patient is alert and oriented x3, not in any acute distress. Tearful and anxious. Well developed, well nourished. HEENT: Pupils are round and equally reacting to light. EOMI. No scleral icterus. No conjunctival pallor. Normocephalic, atraumatic. No pharyngeal erythema. No thyromegaly. CARDIOVASCULAR: S1 and S2 present. No murmurs, rubs, or gallops. PULMONARY: Chest is clear to auscultation, no wheezing or crackles. ABDOMEN: Soft, nontender, nondistended, normoactive bowel sounds. No palpable organomegaly. MUSCULOSKELETAL: No joint swelling or deformity. EXTREMITIES: No cyanosis, clubbing, or pedal edema. NEUROLOGICAL: Gross neurological examination did not reveal any focal deficits. SKIN: Patient has an abscess with surrounding cellulitis in the right mid f orearm flexor aspect with significant tenderness and status post incision and drainage with surgical dressings that are dry and intact. - Labs CBC & Chem 7: 04/18/20 06:05 04/18/20 06:05 Labs: Abnormal Lab Results - Last 24 Hours (Table) 04/16/20 04/18/20 04/18/20 Range/Units 22:20 06:05 06:05 WBC 14.32 H (4.50-10.00) X 10*3/uL RBC 3.55 L (4.10-5.20) X 10*6/uL Hgb 9.5 L (12.0-15.0) g/dL Hct 30.0 L (37.2-46.3) % MCH 26.8 L (27.0-32.0) pg MCHC 31.7 L (32.0-37.0) g/dL Creatinine 0.5 L (0.6-1.5) mg/dL BUN/Creatinine Ratio 24.00 H (12.00-20.00) Ratio Glucose 134 H (70-110) mg/dL Calcium 7.7 L (8.7-10.3) mg/dL Total Bilirubin 0.1 L (0.2-1.2) mg/dL Total Protein 4.8 L (6.2-8.2) g/dL Albumin 2.90 L (3.80-4.90) g/dL Albumin/Globulin Ratio 1.53 L (1.60-3.17) g/dL Hep C IgG Ab Reactive A (Non-Reactive) Microbiology - Last 24 Hours (Table) 04/17/20 18:21 Gram Stain - Preliminary Arm - Right Wound Culture - Preliminary 04/17/20 18:21 Anaerobic Culture - Preliminary Arm - Right 04/16/20 22:10 Blood Culture - Preliminary Blood No Growth after 24 hours 04/16/20 22:20 Blood Culture - Preliminary Blood No Growth after 24 hours 04/16/20 23:40 Gram Stain - Preliminary Arm - Right Wound Culture - Preliminary Presumptive Staph aureus Beta Hemolytic Strep Group C Assessment and Plan Assessment: -Right forearm abscess secondary to IV drug use patient underwent incision and drainage with surgery. patient will be continued on IV vancomycin. Wound cultures preliminary showing presumptive staph aureus with beta hemolytic strep group C. Waiting culture finalization. Patient is already in opiates for pain which will try to avoid and patient will be started on Toradol for pain. -IV drug use history -Hepatitis C: IgG antibody was reactive -Nicotine use: Counseling was provided -History of PTSD as per the medical records but patient is not on any medications patient probably will need to follow with [facility] upon discharge. -Tachycardia secondary to sepsis, improved. continue with IV fluids -GI prophylaxis with IV Protonix -DVT prophylaxis early ambulation Plan: Continue with current medications and attempt to avoid narcotics. Patient is status post incision and drainage and maintained on IV antibiotics in the form of vancomycin while awaiting for cultures to finalized. Infectious disease following. Patient will likely need IV antibiotic therapy although given her IVDA history, we'll need to discuss with infectious disease along with case management about treatment in the outpatient setting.
--- NOTE | 2020-04-18 15:09 | P.PN ---
Subjective Progress Note Date: 04/18/20 CHIEF COMPLAINT: Right forearm abscess HISTORY OF PRESENT ILLNESS: Patient is status post incision and drainage of right forearm abscess. She is complaining of pain. She is on IV antibiotics. She denies any nausea or vomiting. Afebrile. WBC 14.3 to Hgb 9.5 PHYSICAL EXAM: VITAL SIGNS: Reviewed. GENERAL: Well-developed in no acute distress. HEENT: No sclera icterus. Extraocular movements grossly intact. Moist buccal mucosa. Head is atraumatic, normocephalic. ABDOMEN: Soft. Nondistended. Nontender. NEUROLOGIC: Alert and oriented. Cranial nerves II through XII grossly intact. Extremities right forearm is wrapped. +2 radial pulse ASSESSMENT: 1. Right forearm abscess status post incision and drainage with debridement of necrotic tissue PLAN: -Continue antibiotics per ID -Follow up on culture results -Continue local wound care -Add [place] for pain control -Continue supportive care Physician Jingle Writer note has been reviewed by physician. Signing provider agrees with the documented findings, assessment, and plan of care. Objective - Vital Signs Vital signs: Vital Signs Temp 98.3 F 04/18/20 08:43 Pulse 84 04/18/20 14:00 Resp 18 04/18/20 14:00 BP 101/69 04/18/20 10:10 Pulse Ox 99 04/18/20 08:43 Intake & Output 04/17/20 04/18/20 04/18/20 18:59 06:59 18:59 Intake Total 1960 790 500 Output Total 5 Balance 1955 790 500 Weight 49.895 kg Intake: IV 550 150 Intake, IV Titration 1410 640 Amount Sodium Chloride 0.9% 1, 910 390 000 ml @ 100 mls/hr IV . Q10H [facility] Rx#:[id number] Vancomycin 1,000 mg In 500 250 Sodium Chloride 0.9% 250 ml @ 125 mls/hr IVPB Q8H [facility] Rx#:[id number] Oral 0 500 Output: Estimated Blood Loss 5 Other: Voiding Method Toilet Toilet Toilet # Voids 2 2 4 - Labs CBC & Chem 7: 04/18/20 06:05 04/18/20 06:05 Labs: Abnormal Lab Results - Last 24 Hours (Table) 04/16/20 04/18/20 04/18/20 Range/Units 22:20 06:05 06:05 WBC 14.32 H (4.50-10.00) X 10*3/uL RBC 3.55 L (4.10-5.20) X 10*6/uL Hgb 9.5 L (12.0-15.0) g/dL Hct 30.0 L (37.2-46.3) % MCH 26.8 L (27.0-32.0) pg MCHC 31.7 L (32.0-37.0) g/dL Creatinine 0.5 L (0.6-1.5) mg/dL BUN/Creatinine Ratio 24.00 H (12.00-20.00) Ratio Glucose 134 H (70-110) mg/dL Calcium 7.7 L (8.7-10.3) mg/dL Total Bilirubin 0.1 L (0.2-1.2) mg/dL Total Protein 4.8 L (6.2-8.2) g/dL Albumin 2.90 L (3.80-4.90) g/dL Albumin/Globulin Ratio 1.53 L (1.60-3.17) g/dL Hep C IgG Ab Reactive A (Non-Reactive) Microbiology - Last 24 Hours (Table) 04/17/20 18:21 Gram Stain - Preliminary Arm - Right Wound Culture - Preliminary 04/17/20 18:21 Anaerobic Culture - Preliminary Arm - Right 04/16/20 22:10 Blood Culture - Preliminary Blood No Growth after 24 hours 04/16/20 22:20 Blood Culture - Preliminary Blood No Growth after 24 hours 04/16/20 23:40 Gram Stain - Preliminary Arm - Right Wound Culture - Preliminary Presumptive Staph aureus Beta Hemolytic Strep Group C
[2020-04-18] MEDS ORDERED: VANCOMYCIN 1,250 MG in SODIUM CHLORIDE 0.9% 250 ML IVPB SCH (16:00)
[2020-04-18] MEDS: CLINDAMYCIN 600 MG in DEXTROSE 5% IN WATER 50 ML IVPB SCH ×2 (23:41)
[2020-04-19] MEDS: HYDROmorphone 1 MG/ML 1 ML SYRINGE IVP PRN ×4 (00:34→11:14)
[2020-04-19 01:45] VITALS: RESP 16
--- NOTE | 2020-04-19 02:01 | PN ---
PROGRESS NOTE DATE OF SERVICE: 04/18/2020 REASON FOR FOLLOWUP: Right forearm abscess, concern for electrolytes infection from IV drug use. INTERVAL HISTORY: The patient is currently afebrile. He is breathing comfortably. Still complaining of significant pain to the right forearm wound area. No chest pain, shortness of breath or cough. No abdominal pain. No diarrhea. PHYSICAL EXAMINATION: Blood pressure 105/65, pulse of 90, temperature 98.3. He is 98% on room air. General description is a middle-aged female lying in bed in no distress. Respiratory system: Unlabored breathing, clear to auscultation anteriorly. Heart S1, S2. Regular rate and rhythm. Abdomen soft, no tenderness. Right wrist is currently dressed up. No obvious drainage on the dressing. LABS: Hemoglobin 11.5, white count 14.3, BUN of 12, creatinine 0.5. Wound culture with Staph aureus and group C strep. DIAGNOSTIC IMPRESSION AND PLAN: Patient with right wrist forearm area abscess with necrotizing infection. Culture with Staph aureus likely MSSA and group C strep. Antibiotic adjusted to clindamycin and cefazolin. The patient will need placement for IV antibiotic in view of extensive infection, as per our discussion with surgery and continue supportive care. MMODL / IJN: [id number] /
[2020-04-19] MEDS: LORazepam 2 MG/ML INJ IV PRN ×2 (04:04→09:49)
[2020-04-19] MEDS: KETOROLAC 15 MG/ML 1 ML VIAL IVP PRN ×2 (05:51→12:05)
[2020-04-19] MEDS: HYDROcodone/APAP 5-325MG 1 EACH TAB PO PRN ×2 (06:02→12:05)
[2020-04-19] MEDS ORDERED: HYDROmorphone 0.5 MG/0.5 ML SYRINGE IVP STA (06:35)
[2020-04-19 07:35] VITALS: BP 109/72; PULSE 78; TEMP 98.4
[2020-04-19] MEDS: NICOTINE 21MG/24HR PATCH TRANSDERM SCH (08:52)
[2020-04-19] MEDS: PANTOPRAZOLE 40 MG/10 ML VIAL IVP SCH (08:53)
[2020-04-19] MEDS: SODIUM CHLORIDE 0.9% 1,000 ML IV SCH (08:54)
[2020-04-19] MEDS: CLINDAMYCIN 600 MG in DEXTROSE 5% IN WATER 50 ML IVPB SCH ×2 (09:01)
[2020-04-19 09:32] LABS: Basophils # (A) 0.04 X 10*3/uL (0.00-0.10); Basophils % (A) 0.6 %; Eosinophils # (A) 0.11 X 10*3/uL (0.04-0.35); Eosinophils % (A) 1.5 %; HCT 31.6 % (37.2-46.3); HGB 10.1 g/dL (12.0-15.0); Lymphocytes # (A) 2.02 X 10*3/uL (0.90-5.00); Lymphocytes % (A) 28.3 %; MCH 26.8 pg (27.0-32.0); MCV 83.8 fL (80.0-97.0); Mean Platelet Volume 9.9 fL (9.5-12.2); Monocytes # (A) 0.51 X 10*3/uL (0.20-1.00); Monocytes % (A) 7.2 %; Neutrophils # (A) 4.41 X 10*3/uL (1.80-7.70); Neutrophils % (A) 61.8 %; Platelet Count 380 X 10*3/uL (140-440); RBC 3.77 X 10*6/uL (4.10-5.20); RDW 13.8 % (11.5-14.5); WBC 7.13 X 10*3/uL (4.50-10.00)
[2020-04-19 12:03] LABS: Hepatitis B Surface Antigen Reactive (Non-Reactive)
--- NOTE | 2020-04-19 13:27 | P.PN ---
Subjective Progress Note Date: 04/19/20 39-year-old female with IV drug abuse history came in with swelling in the right forearm found to have systolic and cellulitis of the right forearm. Patient will undergo incision and drainage and patient is presently on IV vancomycin patient has leukocytosis with white blood cell count of 20,000 patient doesn't have any fevers. Patient admits to using heroin. Patient has a swelling going on for last week. Patient was never tested for hepatitis C admits to IV drug use for about 5 years. Does have history of PTSD, bipolar disorder and seizure disorder 04/18/2020 Patient is seen and evaluated in follow-up and recently underwent incision and drainage with surgery for cellulitis of the right forearm as she uses heroin and is an IV drug abuser. Patient continues to request pain medication stating she is in 10 out of 10 pain scale and severe anxiety and requesting an increase in her medications. Patient's blood pressure has been on the lower side and nursing staff does not feel comfortable with giving IV pain medications along with Ativan with her blood pressure being that low. Patient does have Toradol along with oral pain medications that she has been instructed to use. Patient is maintained on IV hydration along with IV vancomycin and will continue at this time. Infectious disease following an waiting on cultures. Preliminary culture showing presumptive staph aureus with beta hemolytic strep group C. 04/19/2020 Patient was seen this morning continues to have extreme pain and requesting an increase in her pain medication. Patient has been very anxious and yelling at staff and making threats of leaving AGAINST MEDICAL ADVICE. Psychiatry consulted to determine capacity although patient is alert and oriented 3. Per nursing staff patient apparently had a friend visit and was found smoking in the bathroom. Security was notified. Patient denies any suicidal thoughts of wanting to harm herself or others. Social work was also following working on a possible accepting facility to manage IV antibiotic therapy if this was required as outpatient. Infectious disease was following and awaiting on wound culture finalization to determine appropriate discharge antibiotics. Wound cultures preliminary still showing presumptive staph along with beta hemolytic strep g roup C. Patient is requesting to leave AMA. Notified nursing staff to ensure she signs the AMA form Review of systems: Constitutional: No reports of fatigue, fever, or chills, reports anxiety Cardiovascular: No reports of chest pain or palpitations Respiratory: No reports of shortness of breath or cough GI: No reports of nausea, vomiting, or diarrhea : No reports of dysuria or retention Neurovascular: No reports of weakness or numbness All medications have been reviewed Objective - Vital Signs Vital signs: Vital Signs Temp 98.4 F 04/19/20 07:00 Pulse 78 04/19/20 07:00 Resp 16 04/19/20 08:00 BP 109/72 04/19/20 07:00 Pulse Ox 97 04/19/20 07:00 Intake & Output 04/18/20 04/19/20 04/19/20 18:59 06:59 18:59 Intake Total 500 1797 100 Output Total 300 Balance 500 1497 100 Intake: Intake, IV Titration 1200 Amount Sodium Chloride 0.9% 1, 1200 000 ml @ 100 mls/hr IV . Q10H [facility] Rx#:[id number] Oral 500 597 100 Output: Urine 300 Other: Voiding Method Toilet Toilet Toilet # Voids 4 1 - Exam GENERAL: The patient is alert and oriented x3, not in any acute distress. Extremely agitated and anxious. Well developed, well nourished. HEENT: Pupils are round and equally reacting to light. EOMI. No scleral icterus. No conjunctival pallor. Normocephalic, atraumatic. No pharyngeal erythema. No thyromegaly. CARDIOVASCULAR: S1 and S2 present. No murmurs, rubs, or gallops. PULMONARY: Chest is clear to auscultation, no wheezing or crackles. ABDOMEN: Soft, nontender, nondistended, normoactive bowel sounds. No palpable organomegaly. MUSCULOSKELETAL: No joint swelling or deformity. EXTREMITIES: No cyanosis, clubbing, or pedal edema. NEUROLOGICAL: Gross neurological examination did not reveal any focal deficits. SKIN: Patient has an abscess with surrounding cellulitis in the right mid forearm flexor aspect with significant tenderness and status post incision and drainage with surgical dressings that are dry and intact. - Labs CBC & Chem 7: 04/19/20 05:41 04/18/20 06:05 Labs: Abnormal Lab Results - Last 24 Hours (Table) 04/18/20 04/19/20 Range/Units 06:05 05:41 RBC 3.77 L (4.10-5.20) X 10*6/uL Hgb 10.1 L (12.0-15.0) g/dL Hct 31.6 L (37.2-46.3) % MCH 26.8 L (27.0-32.0) pg Creatinine 0.5 L (0.6-1.5) mg/dL BUN/Creatinine Ratio 24.00 H (12.00-20.00) Ratio Glucose 134 H (70-110) mg/dL Calcium 7.7 L (8.7-10.3) mg/dL Total Bilirubin 0.1 L (0.2-1.2) mg/dL Total Protein 4.8 L (6.2-8.2) g/dL Albumin 2.90 L (3.80-4.90) g/dL Albumin/Globulin Ratio 1.53 L (1.60-3.17) g/dL Microbiology - Last 24 Hours (Table) 04/16/20 22:10 Blood Culture - Preliminary Blood No Growth after 48 hours 04/16/20 22:20 Blood Culture - Preliminary Blood No Growth after 48 hours 04/16/20 23:40 Gram Stain - Preliminary Arm - Right Wound Culture - Preliminary Presumptive Staph aureus Beta Hemolytic Strep Group C 04/17/20 18:21 Gram Stain - Preliminary Arm - Right Wound Culture - Preliminary Assessment and Plan Assessment: -Right forearm abscess secondary to IV drug use patient underwent incision and drainage with surgery. patient will be continued on IV cefazolin and clindamycin. Wound cultures preliminary showing presumptive staph aureus with beta hemolytic strep group C. Waiting culture finalization. Patient is already in opiates for pain which will try to avoid and patient will be started on Toradol for pain. -IV drug use history -Hepatitis C: IgG antibody was reactive -Nicotine use: Counseling was provided -History of PTSD as per the medical records but patient is not on any medications patient probably will need to follow with [facility] upon discharge. -Tachycardia secondary to sepsis, improved. continue with IV fluids -GI prophylaxis with IV Protonix -DVT prophylaxis early ambulation Plan: Continue with current medications. Patient is status post incision and drainage and maintained on IV antibiotics in the form of physical and and clindamycin while awaiting for cultures to finalized. Infectious disease following. Patient will likely need IV antibiotic therapy although given her IVDA history, we'll need to discuss with infectious disease along with case management about treatment in the outpatient setting. Social work was following and working on possible placement for continued IV antibiotic therapy. Patient is alert and oriented 3 and denies any suicidal ideation or thoughts of harming herself or others. Patient is leaving AMA and RN ensured forms will be signed.
--- NOTE | 2020-04-19 13:29 | P.DS ---
Providers Date of admission: 04/16/20 23:46 Expected date of discharge: 04/19/20 Attending physician: Lorraine Dove Consults: 04/16/20 23:46 Consult Physician Routine Consulting Provider: Shahbaz Cm Consult Reason/Comments: abcess-feels needs surgical debridement Do you want consulting provider notified?: Yes Consult Physician Routine Consulting Provider: Gerald Lynch Consult Reason/Comments: abscess right forearm, concern gangrene Do you want consulting provider notified?: Yes 04/19/20 12:01 Consult Physician Routine Consulting Provider: Emre Villaseñor Consult Reason/Comments: IVDA/poor living situation/homeless/ level of capacity Do you want consulting provider notified?: Yes Primary care physician: Augustine Chairez Hospital Course: Final diagnosis -Right forearm abscess secondary to IV drug use -IV drug use history -Hepatitis C -Nicotine use: Counseling was provided -History of PTSD -Tachycardia secondary to sepsis, improved -GI prophylaxis -DVT prophylaxis Discharge disposition Patient has left AGAINST MEDICAL ADVICE and forms were signed. Please refer to previous dictations for further HPI Patient Condition at Discharge: Fair Plan - Discharge Summary New Discharge Prescriptions: No Action Ativan (Unknown Strength) 1 tab PO DIRECTED Ibuprofen [Motrin] 800 mg PO ONCE PRN PRN Reason: Pain Discharge Medication List Ativan (Unknown Strength) 1 tab PO DIRECTED 04/16/20 [History] Ibuprofen [Motrin] 800 mg PO ONCE PRN 04/16/20 [History] Follow up Appointment(s)/Referral(s): Augustine Chairez DO [Primary Care Provider] - 1-2 days Patient Instructions/Handouts: Hepatitis C (DC) Discharge Disposition: Left Against Medical Advice
--- NOTE | 2020-04-20 15:00 | P.PN ---
Progress Note - Text Progress Note Date: 04/19/20 REASON FOR FOLLOWUP: Right forearm abscess, concern for necrotizing infection from IV drug use. INTERVAL HISTORY: The patient is afebrile. The patient is breathing comfortably. Still complaining of significant pain to the right forearm wound area and wants the pain medication to be adjusted up. The patient denies chest pain, shortness of breath or cough. No abdominal pain. No diarrhea. PHYSICAL EXAMINATION: Blood pressure 110/60, pulse of 90, temperature 98.3. He is 98% on room air. General description is a middle-aged female lying in bed in no distress. Respiratory system: Unlabored breathing, clear to auscultation anteriorly. Heart S1, S2. Regular rate and rhythm. Abdomen soft, no tenderness. Right wrist is currently dressed up. No obvious drainage on the dressing. LABS: Relieved DIAGNOSTIC IMPRESSION AND PLAN: Patient with right wrist forearm area abscess with necrotizing infection. Culture with MSSA and group C strep. Patient is currently covered with clindamycin and cefazolin. The patient has been advised to stay in the hospital for IV antibiotic therapy As she threatening to leave [facility] because of inadequate pain medication
== END 2020-04-19 12:45 | disposition left against medical advice (07) | DRG 854 ==
LOC: EC 17:35 → 6NMEDSUR 23:46 → OBSVTOIN 23:46
PROVIDERS: ADMIT Hospitalist; ATTEND Hospitalist
PROC: 0JBG0ZZ Excision of Right Lower Arm Subcutaneous Tissue and Fascia, Open Approach (ICD-10-PCS; principal; 2020-04-17 18:09)
DX: A41.9 Sepsis, unspecified organism (principal); L02.413 Cutaneous abscess of right upper limb; L03.113 Cellulitis of right upper limb; B19.20 Unspecified viral hepatitis C without hepatic coma; Z71.6 Tobacco abuse counseling; F17.210 Nicotine dependence, cigarettes, uncomplicated; F11.10 Opioid abuse, uncomplicated; F31.9 Bipolar disorder, unspecified; F43.10 Post-traumatic stress disorder, unspecified; G40.909 Epilepsy, unspecified, not intractable, without status epilepticus; J45.909 Unspecified asthma, uncomplicated; Z59.0 Homelessness; Z90.710 Acquired absence of both cervix and uterus; Z20.822 Contact with and (suspected) exposure to COVID-19; Z90.49 Acquired absence of other specified parts of digestive tract; Z88.5 Allergy status to narcotic agent; Z88.2 Allergy status to sulfonamides; Z91.041 Radiographic dye allergy status; Z79.899 Other long term (current) drug therapy
CPT/HCPCS: 36415; 80053; 80074; 80202; 81025; 83605; 85025; 85027; 87040; 87070; 87075; 87077; 87186; 87205; 87340; 87635; 96365; 96368; 96375; 99284

== ENCOUNTER 2020-06-30 16:47 | Observation (INO) | payer OTHER ==
[2020-06-30] MEDS ORDERED: SODIUM CHLORIDE 0.9% 1,000 ML IV STA (17:15)
--- NOTE | 2020-06-30 17:17 | ED ---
Skin/Abscess/FB HPI - General Chief complaint: Skin/Abscess/Foreign Body Stated complaint: Mental Health/Skin issues/hand and face Time Seen by Provider: 06/30/20 16:56 Source: patient Mode of arrival: ambulatory Limitations: no limitations - History of Present Illness Initial comments: 39-year-old female with history of IV drug use presents emergency Department with chief complaint of an infection in the hand. Patient reports she attempts to use different injection sites for heroin but she continues to develop infections at those sites. The this is not the first time she has been admitted for this. Reports she's had recent surgical debridement. Patient reports the infection has increased in severity in the dorsal aspect of her right hand. She reports some discharge and surrounding erythema. She also reports multiple abscesses on bilateral forearms. She also noted a lesion starting on the left side of her face with some surrounding erythema. She denies any fevers or chills at home. Report is painful to the touch. Last time she injected heroin was yesterday. - Related Data Home Medications Medication Instructions Recorded Confirmed No Known Home Medications 06/30/20 06/30/20 Allergies Allergy/AdvReac Type Severity Reaction Status Date / Time Iodinated Contrast Media Allergy Anaphylaxis Verified 06/30/20 18:02 sulfamethoxazole AdvReac Diarrhea Verified 06/30/20 18:02 [From Bactrim] trimethoprim [From Bactrim] AdvReac Diarrhea Verified 06/30/20 18:02 Opioids AdvReac Severe Patient Uncoded 06/30/20 18:02 does not want to receive any opioids Review of Systems ROS Statement: Those systems with pertinent positive or pertinent negative responses have been documented in the HPI. ROS Other: All systems not noted in ROS Statement are negative. Past Medical History Past Medical History: Asthma, GERD/Reflux, Seizure Disorder History of Any Multi-Drug Resistant Organisms: None Reported Past Surgical History: Appendectomy, Cholecystectomy, Hysterectomy, Orthopedic Surgery Additional Past Surgical History / Comment(s): rt arm surgery Past Anesthesia/Blood Transfusion Reactions: No Reported Reaction Past Psychological History: Anxiety, Bipolar, PTSD Smoking Status: Current every day smoker Past Alcohol Use History: None Reported Past Drug Use History: Heroin, IV Drug Use, Marijuana General Exam Limitations: no limitations General appearance: alert, in no apparent distress Head exam: Present: atraumatic, normocephalic, normal inspection Eye exam: Present: normal appearance, PERRL, EOMI Pupils: Present: normal accommodation ENT exam: Present: normal exam, normal oropharynx, mucous membranes moist, other (Lesion on the left side of the face near the angle of the mandible.) Neck exam: Present: normal inspection, full ROM. Absent: tenderness Respiratory exam: Present: normal lung sounds bilaterally. Absent: respiratory distress, wheezes, rales, rhonchi, stridor Cardiovascular Exam: Present: regular rate, normal rhythm, normal heart sounds Extremities exam: Present: full ROM, tenderness (Tenderness at the lesions.), normal capillary refill. Absent: normal inspection (Patient has 2 large abscesses in the dorsal aspect of the right hand. There is pustular discharge with surrounding erythema measuring about 7 cm in diameter. There are also multiple lesions on bilateral forearms with surrounding erythema), pedal edema, joint swelling, calf tenderness Back exam: Present: normal inspection, full ROM. Absent: tenderness, CVA tenderness (R), CVA tenderness (L) Neurological exam: Present: alert, oriented X3 Psychiatric exam: Present: normal affect, depressed Skin exam: Present: warm, dry, intact, normal color Course Vital Signs 06/30/20 16:49 Temperature 97.8 F Pulse Rate 115 H Respiratory 20 Rate Blood Pressure 136/82 O2 Sat by Pulse 97 Oximetry Medical Decision Making - Medical Decision Making 39-year-old female presents to the emergency department with a chief complaint of infection. I reviewed her medical records, patient has been previously admitted for cellulitis at injection site. Due to the severity of the abscess on the dorsum of the hand as well as multiple other lesions throughout the hand. I will not attempt incision and drainage at this time. CBC shows no leukocytosis. Patient was given IV fluids and 1 g Rocephin initially. She was started on vancomycin as well. Case was discussed with . Spoke with Dr. Dove who will admit the patient. She has been previously evaluated by and I will put him on consult. Infectious disease is also consulted. - Lab Data Result diagrams: 06/30/20 18:14 06/30/20 18:14 Lab Results 06/30/20 06/30/20 06/30/20 Range/Units 18:14 18:14 18:14 WBC 9.9 (3.8-10.6) k/uL RBC 4.63 (3.80-5.40) m/uL Hgb 11.8 (11.4-16.0) gm/dL Hct 37.5 (34.0-46.0) % MCV 81.1 (80.0-100.0) fL MCH 25.6 (25.0-35.0) pg MCHC 31.5 (31.0-37.0) g/dL RDW 13.9 (11.5-15.5) % Plt Count 493 H (150-450) k/uL MPV 6.6 Neutrophils % 69 % Lymphocytes % 23 % Monocytes % 4 % Eosinophils % 2 % Basophils % 1 % Neutrophils # 6.8 (1.3-7.7) k/uL Lymphocytes # 2.3 (1.0-4.8) k/uL Monocytes # 0.4 (0-1.0) k/uL Eosinophils # 0.2 (0-0.7) k/uL Basophils # 0.1 (0-0.2) k/uL Sodium 140 (137-145) mmol/L Potassium 3.9 (3.5-5.1) mmol/L Chloride 103 (98-107) mmol/L Carbon Dioxide 29 (22-30) mmol/L Anion Gap 8 mmol/L BUN 5 L (7-17) mg/dL Creatinine 0.57 (0.52-1.04) mg/dL Est GFR (CKD-EPI)AfAm >90 (>60 ml/min/1.73 sqM) Est GFR (CKD-EPI)NonAf >90 (>60 ml/min/1.73 sqM) Glucose 96 (74-99) mg/dL Plasma Lactic Acid Fernando 1.7 (0.7-2.0) mmol/L Calcium 9.7 (8.4-10.2) mg/dL Total Bilirubin 0.2 (0.2-1.3) mg/dL AST 40 H (14-36) U/L ALT 53 H (4-34) U/L Alkaline Phosphatase 142 H (38-126) U/L Total Protein 7.0 (6.3-8.2) g/dL Albumin 3.9 (3.5-5.0) g/dL Disposition Clinical Impression: Abscess of multiple sites Disposition: ADMITTED IP TO THIS HOSP Condition: Fair Is patient prescribed a controlled substance at d/c from ED?: No Referrals: Augustine Chairez DO [Primary Care Provider] - 1-2 days Time of Disposition: 19:03
[2020-06-30] MEDS ORDERED: VANCOMYCIN IV PER PHARMACY 1 EACH MISC MISCELLANE PRN (17:19)
[2020-06-30] MEDS ORDERED: cefTRIAXone IN SWFI 1,000 MG/10 ML SYRINGE IVP STA (17:22)
[2020-06-30] MEDS ORDERED: VANCOMYCIN 1,000 MG in SODIUM CHLORIDE 0.9% 250 ML IVPB ONE (18:00)
[2020-06-30 18:30] LABS: Basophils # (A) 0.1 k/uL (0-0.2); Basophils % (A) 1 %; Eosinophils # (A) 0.2 k/uL (0-0.7); Eosinophils % (A) 2 %; HCT 37.5 % (34.0-46.0); HGB 11.8 gm/dL (11.4-16.0); Lymphocytes # (A) 2.3 k/uL (1.0-4.8); Lymphocytes % (A) 23 %; MCH 25.6 pg (25.0-35.0); MCHC 31.5 g/dL (31.0-37.0); MCV 81.1 fL (80.0-100.0); Mean Platelet Volume 6.6; Monocytes # (A) 0.4 k/uL (0-1.0); Monocytes % (A) 4 %; Neutrophils # (A) 6.8 k/uL (1.3-7.7); Neutrophils % (A) 69 %; Platelet Count 493 k/uL (150-450); RBC 4.63 m/uL (3.80-5.40); RDW 13.9 % (11.5-15.5); WBC 9.9 k/uL (3.8-10.6)
[2020-06-30 18:36] LABS: ALT 53 U/L (4-34); AST 40 U/L (14-36); African American GFR (CKD) >90 (>60 ml/min/1.73 sqM); Albumin 3.9 g/dL (3.5-5.0); Alkaline Phosphatase 142 U/L (38-126); Anion Gap 8 mmol/L; Blood Urea Nitrogen 5 mg/dL (7-17); Calcium 9.7 mg/dL (8.4-10.2); Carbon Dioxide 29 mmol/L (22-30); Chloride 103 mmol/L (98-107); Glucose 96 mg/dL (74-99); Non-African American GFR(CKD) >90 (>60 ml/min/1.73 sqM); Potassium 3.9 mmol/L (3.5-5.1); Sodium 140 mmol/L (137-145); Total Bilirubin 0.2 mg/dL (0.2-1.3)
[2020-06-30] MEDS ORDERED: NALOXONE 0.4 MG/ML 1 ML VIAL IV PRN (18:56)
[2020-06-30] MEDS ORDERED: ONDANSETRON 4 MG/2 ML VIAL IVP PRN (18:56)
[2020-06-30] MEDS ORDERED: LORazepam 2 MG/ML INJ IV PRN (18:56)
[2020-06-30] MEDS ORDERED: IBUPROFEN 400 MG TAB PO PRN (18:56)
[2020-06-30] MEDS ORDERED: ACETAMINOPHEN TAB 325 MG TAB PO PRN (18:56)
[2020-06-30] MEDS ORDERED: traMADol 50 MG TAB PO PRN (18:56)
[2020-06-30] MEDS ORDERED: SODIUM CHLORIDE 0.9% 1,000 ML IV SCH (19:00)
[2020-06-30] MEDS ORDERED: MORPHINE SULFATE 4 MG/ML SYRINGE IVP STA (19:45)
--- NOTE | 2020-06-30 20:41 | XR ---
Result: Clinical History: Pain and concern for necrotic infection. Comparison: None available. Technique: 3 views of the right hand. Findings: There is soft tissue swelling at dorsum of the hand without soft tissue gas or radiographic evidence for osteomyelitis. No acute fracture or dislocation is seen. The visualized osseous structures are i n anatomic alignment. The joint spaces are preserved. There is no definite radiopaque foreign body seen. Impression: Soft tissue swelling without acute osseous abnormality.
[2020-06-30 21:00] VITALS: BP 106/77; PULSE 98; RESP 20; TEMP 98
[2020-07-01] MEDS ORDERED: VANCOMYCIN 1,000 MG in SODIUM CHLORIDE 0.9% 250 ML IVPB SCH ×2
--- NOTE | 2020-07-06 11:49 | HP ---
HISTORY AND PHYSICAL COMBINATION HISTORY AND PHYSICAL AND DISCHARGE SUMMARY: CHIEF COMPLAINT: Multiple abscess. HISTORY OF PRESENT ILLNESS: This 39-year-old woman with a past medical history of multiple medical problems including IV drug abuse, was admitted with multiple sites abscesses, but however the patient left the hospital against medical advice from the ER itself. Please refer to the ER notes and progress notes and nurses' notes for further information. Prognosis remains extremely guarded. MMODL / IJN: [id number] /
== END 2020-06-30 20:05 | disposition left against medical advice (07) ==
LOC: EC 16:47 → 6NMEDSUR 19:23
PROVIDERS: ADMIT Hospitalist; ATTEND Hospitalist
DX: L08.9 Local infection of the skin and subcutaneous tissue, unspecified (principal); Z53.29 Procedure and treatment not carried out because of patient's decision for other reasons; Z20.822 Contact with and (suspected) exposure to COVID-19; G40.909 Epilepsy, unspecified, not intractable, without status epilepticus; K21.9 Gastro-esophageal reflux disease without esophagitis; J45.909 Unspecified asthma, uncomplicated; F41.9 Anxiety disorder, unspecified; F31.9 Bipolar disorder, unspecified; F43.10 Post-traumatic stress disorder, unspecified; F17.200 Nicotine dependence, unspecified, uncomplicated; Z88.2 Allergy status to sulfonamides; Z88.5 Allergy status to narcotic agent; Z88.1 Allergy status to other antibiotic agents; Z86.59 Personal history of other mental and behavioral disorders; Z90.710 Acquired absence of both cervix and uterus
CPT/HCPCS: 96365; 96366; 96375; 99285; 36415; 80053; 83605; 85025; 87040; 87635; 73130; G0378; J3370; J2060; J2270; J0696

== ENCOUNTER 2020-10-15 20:54 | Inpatient (IN) | payer OTHER ==
[~2020-10-15 20:54] MED LIST: VANCOMYCIN 1,000 MG in SODIUM CHLORIDE 0.9% 250 ML IVPB SCH
[2020-10-15] MEDS ORDERED: ACETAMINOPHEN TAB 500 MG TAB PO STA (21:29)
[2020-10-15] MEDS ORDERED: SODIUM CHLORIDE 0.9% 1,000 ML IV STA ×2 (21:29→23:07)
[2020-10-15] MEDS ORDERED: KETOROLAC 15 MG/ML 1 ML VIAL IVP STA (22:14)
[2020-10-15 22:39] LABS: ALT 27 U/L (4-34); AST 29 U/L (14-36); African American GFR (CKD) >90 (>60 ml/min/1.73 sqM); Albumin 3.2 g/dL (3.5-5.0); Alkaline Phosphatase 203 U/L (38-126); Anion Gap 7 mmol/L; Blood Urea Nitrogen 14 mg/dL (7-17); Calcium 8.9 mg/dL (8.4-10.2); Carbon Dioxide 28 mmol/L (22-30); Chloride 94 mmol/L (98-107); Glucose 109 mg/dL (74-99); Non-African American GFR(CKD) >90 (>60 ml/min/1.73 sqM); Sodium 129 mmol/L (137-145); Total Bilirubin 0.3 mg/dL (0.2-1.3); Total Protein 6.2 g/dL (6.3-8.2)
[2020-10-15 22:47] LABS: Basophils # (A) 0.1 k/uL (0-0.2); Basophils % (A) 1 %; Eosinophils # (A) 0.1 k/uL (0-0.7); Eosinophils % (A) 1 %; HCT 36.4 % (34.0-46.0); HGB 12.2 gm/dL (11.4-16.0); Lymphocytes # (A) 2.3 k/uL (1.0-4.8); Lymphocytes % (A) 13 %; MCH 26.2 pg (25.0-35.0); MCHC 33.5 g/dL (31.0-37.0); MCV 78.1 fL (80.0-100.0); Mean Platelet Volume 7.8; Monocytes # (A) 0.7 k/uL (0-1.0); Monocytes % (A) 4 %; Neutrophils # (A) 13.4 k/uL (1.3-7.7); Neutrophils % (A) 78 %; Platelet Count 443 k/uL (150-450); RBC 4.66 m/uL (3.80-5.40); RDW 14.8 % (11.5-15.5); WBC 17.2 k/uL (3.8-10.6)
[2020-10-15 22:54] LABS: Appearance,Urine Cloudy (Clear); Bilirubin,Urine Negative (Negative); Blood,Urine Negative (Negative); Color,Urine Yellow; Glucose,Urine (UA) Negative (Negative); Hyaline Casts,Urine 3 /lpf (0-2); Ketones,Urine Trace (Negative); Leukocyte Esterase,Urine Negative (Negative); Mucus,Urine Rare /hpf; Nitrite,Urine Negative (Negative); PH, Urine 8.5 (5.0-8.0); Protein,Urine 1+ (Negative); RBC,Urine 1 /hpf (0-5); Specific Gravity,Urine 1.026 (1.001-1.035); Squamous Epithelial Cell,Urine 4 /hpf (0-4); Urobilinogen,Urine >12.0 mg/dL (<2.0); WBC,Urine 2 /hpf (0-5)
--- NOTE | 2020-10-15 23:01 | XR ---
EXAMINATION TYPE: XR chest 2V DATE OF EXAM: 10/15/2020 COMPARISON: 07/19/2012 HISTORY: Fever TECHNIQUE: FINDINGS: Heart and mediastinum are normal. Lungs are clear. Diaphragm is normal. Bony thorax is inta ct. There are chest leads. IMPRESSION: Normal chest. No change.
[2020-10-15] MEDS ORDERED: PIPERACILLIN-TAZOBACTAM 3.375 GM in SODIUM CHLORIDE 0.9% 100 ML IVPB STA (23:06)
[2020-10-15 23:11] LABS: Amphetamine Screen,Urine Not Detected (NotDetected); Barbiturate Screen,Urine Detected (NotDetected); Benzodiazepines Screen,Urine Not Detected (NotDetected); Cocaine Screen,Urine Not Detected (NotDetected); Methadone Screen, Urine Not Detected (NotDetected); Opiate Screen,Urine Detected (NotDetected); Oxycodone Screen, Urine Not Detected (NotDetected); Phencyclidine Screen,Urine Not Detected (NotDetected); Tricyclic Antidepressant,Urine Not Detected (NotDetected); Urn Cannabinoid Scrn Detected (NotDetected)
[2020-10-15] MEDS ORDERED: VANCOMYCIN IV PER PHARMACY 1 EACH MISC MISCELLANE PRN ×2 (23:26→23:47)
[2020-10-15] MEDS ORDERED: VANCOMYCIN 1,000 MG in SODIUM CHLORIDE 0.9% 250 ML IVPB ONE (23:45)
[2020-10-15] MEDS ORDERED: NALOXONE 0.4 MG/ML 1 ML VIAL IV PRN (23:49)
--- NOTE | 2020-10-16 00:05 | ED ---
General Adult HPI - General Chief complaint: Fever Stated complaint: Fever Time Seen by Provider: 10/15/20 21:13 Source: patient, EMS, RN notes reviewed Mode of arrival: EMS - History of Present Illness Initial comments: Patient is a 40-year-old female that presents to emergency department complaining of a draining wound to her left thigh. She notes that she is a heroin user and last time she used was yesterday. She notes that she let this wound go for a week to 2 weeks because she is stupid. Patient did appear to be uncomfortable and ill while sitting in bed. Patient was well-nourished and underweight stating that the wound would drain if I pushed on it. She noted t hat she also had a fever that would not come down. Patient denied any other issues. She denied chest pain shortness of breath headache nausea vomiting diarrhea constipation fatigue chills. - Related Data Home Medications Medication Instructions Recorded Confirmed No Known Home Medications 06/30/20 10/15/20 Allergies Allergy/AdvReac Type Severity Reaction Status Date / Time Iodinated Contrast Media Allergy Anaphylaxis Verified 10/15/20 23:39 sulfamethoxazole AdvReac Diarrhea Verified 10/15/20 23:39 [From Bactrim] trimethoprim [From Bactrim] AdvReac Diarrhea Verified 10/15/20 23:39 Opioids AdvReac Severe Patient Uncoded 06/30/20 18:02 does not want to receive any opioids Review of Systems ROS Statement: Those systems with pertinent positive or pertinent negative responses have been documented in the HPI. ROS Other: All systems not noted in ROS Statement are negative. Past Medical History Past Medical History: Asthma, GERD/Reflux, Seizure Disorder History of Any Multi-Drug Resistant Organisms: None Reported Past Surgical History: Appendectomy, Cholecystectomy, Hysterectomy, Orthopedic Surgery Additional Past Surgical History / Comment(s): rt arm surgery Past Anesthesia/Blood Transfusion Reactions: No Reported Reaction Past Psychological History: Anxiety, Bipolar, PTSD Smoking Status: Current every day smoker Past Alcohol Use History: None Reported Past Drug Use History: Heroin, IV Drug Use, Marijuana General Exam General appearance: alert, in no apparent distress, other (Underweight malnourished) Head exam: Present: atraumatic, normocephalic, normal inspection Eye exam: Present: normal appearance, PERRL, EOMI. Absent: scleral icterus, conjunctival injection, periorbital swelling Neck exam: Present: normal inspection Respiratory exam: Present: normal lung sounds bilaterally. Absent: respiratory distress, wheezes, rales, rhonchi, stridor Cardiovascular Exam: Present: regular rate, normal rhythm, normal heart sounds. Absent: systolic murmur, diastolic murmur, rubs, gallop, clicks GI/Abdominal exam: Present: soft, normal bowel sounds. Absent: distended, t enderness, guarding, rebound, rigid Extremities exam: Present: normal inspection, full ROM, normal capillary refill. Absent: tenderness, pedal edema, joint swelling, calf tenderness Neurological exam: Present: alert, oriented X3 Psychiatric exam: Present: normal affect, normal mood Skin exam: Present: warm, dry, intact, normal color, erythema (Left lateral thigh anterior thigh.), other (Draining wound to the left thigh, purulent malodorous.). Absent: rash Course Vital Signs 10/15/20 10/15/20 20:58 22:31 Temperature 102 F H 99.9 F H Pulse Rate 115 H 117 H Respiratory 20 Rate Blood Pressure 105/68 O2 Sat by Pulse 97 Oximetry Medical Decision Making - Medical Decision Making 40-year-old female with a left lateral thigh draining wound, IV heroin user. Labs, 2 L normal saline, chest x-ray, blood cultures, 15 grams of Toradol ordered. 1000 mg of Tylenol ordered for fever. Labs: White blood cells 17.2 sodium 129 alk phos 203. Rest unremarkable. Urine drug screen positive for opiates or barbiturates methamphetamines and THC Chest x-ray ordered. Chest x-ray negative. 3.375 g of Zosyn ordered per sepsis protocol. Case discussed with Dr. Martines, patient will be admitted for IV antibiotic therapy. Dr. Mccormick was consulted and will except the admit. - Lab Data Result diagrams: 10/15/20 22:13 10/15/20 22:13 Lab Results 10/15/20 10/15/20 10/15/20 Range/Units 22:13 22:13 22:13 WBC 17.2 H (3.8-10.6) k/uL RBC 4.66 (3.80-5.40) m/uL Hgb 12.2 (11.4-16.0) gm/dL Hct 36.4 (34.0-46.0) % MCV 78.1 L (80.0-100.0) fL MCH 26.2 (25.0-35.0) pg MCHC 33.5 (31.0-37.0) g/dL RDW 14.8 (11.5-15.5) % Plt Count 443 (150-450) k/uL MPV 7.8 Neutrophils % 78 % Lymphocytes % 13 % Monocytes % 4 % Eosinophils % 1 % Basophils % 1 % Neutrophils # 13.4 H (1.3-7.7) k/uL Lymphocytes # 2.3 (1.0-4.8) k/uL Monocytes # 0.7 (0-1.0) k/uL Eosinophils # 0.1 (0-0.7) k/uL Basophils # 0.1 (0-0.2) k/uL Sodium 129 L (137-145) mmol/L Potassium 4.0 (3.5-5.1) mmol/L Chloride 94 L (98-107) mmol/L Carbon Dioxide 28 (22-30) mmol/L Anion Gap 7 mmol/L BUN 14 (7-17) mg/dL Creatinine 0.49 L (0.52-1.04) mg/dL Est GFR (CKD-EPI)AfAm >90 (>60 ml/min/1.73 sqM) Est GFR (CKD-EPI)NonAf >90 (>60 ml/min/1.73 sqM) Glucose 109 H (74-99) mg/dL Plasma Lactic Acid Fernando 2.0 (0.7-2.0) mmol/L Calcium 8.9 (8.4-10.2) mg/dL Total Bilirubin 0.3 (0.2-1.3) mg/dL AST 29 (14-36) U/L ALT 27 (4-34) U/L Alkaline Phosphatase 203 H (38-126) U/L Total Protein 6.2 L (6.3-8.2) g/dL Albumin 3.2 L (3.5-5.0) g/dL Urine Color Urine Appearance (Clear) Urine pH (5.0-8.0) Ur Specific [place] (1.001-1.035) Urine Protein (Negative) Urine Glucose (UA) (Negative) Urine Ketones (Negative) Urine Blood (Negative) Urine Nitrite (Negative) Urine Bilirubin (Negative) Urine Urobilinogen (<2.0) mg/dL Ur Leukocyte Esterase (Negative) Urine RBC (0-5) /hpf Urine WBC (0-5) /hpf Ur Squamous Epith Cells (0-4) /hpf Hyaline Casts (0-2) /lpf Urine Mucus (None) /hpf Urine Opiates Screen (NotDetected) Ur Oxycodone Screen (NotDetected) Urine Methadone Screen (NotDetected) Ur Propoxyphene Screen (NotDetected) Ur Barbiturates Screen (NotDetected) U Tricyclic Antidepress (NotDetected) Ur Phencyclidine Scrn (NotDetected) Ur Amphetamines Screen (NotDetected) U Methamphetamines Scrn (NotDetected) U Benzodiazepines Scrn (NotDetected) Urine Cocaine Screen (NotDetected) U Marijuana (THC) Screen (NotDetected) 10/15/20 Range/Units 22:13 WBC (3.8-10.6) k/uL RBC (3.80-5.40) m/uL Hgb (11.4-16.0) gm/dL Hct (34.0-46.0) % MCV (80.0-100.0) fL MCH (25.0-35.0) pg MCHC (31.0-37.0) g/dL RDW (11.5-15.5) % Plt Count (150-450) k/uL MPV Neutrophils % % Lymphocytes % % Monocytes % % Eosinophils % % Basophils % % Neutrophils # (1.3-7.7) k/uL Lymphocytes # (1.0-4.8) k/uL Monocytes # (0-1.0) k/uL Eosinophils # (0-0.7) k/uL Basophils # (0-0.2) k/uL Sodium (137-145) mmol/L Potassium (3.5-5.1) mmol/L Chloride (98-107) mmol/L Carbon Dioxide (22-30) mmol/L Anion Gap mmol/L BUN (7-17) mg/dL Creatinine (0.52-1.04) mg/dL Est GFR (CKD-EPI)AfAm (>60 ml/min/1.73 sqM) Est GFR (CKD-EPI)NonAf (>60 ml/min/1.73 sqM) Glucose (74-99) mg/dL Plasma Lactic Acid Fernando (0.7-2.0) mmol/L Calcium (8.4-10.2) mg/dL Total Bilirubin (0.2-1.3) mg/dL AST (14-36) U/L ALT (4-34) U/L Alkaline Phosphatase (38-126) U/L Total Protein (6.3-8.2) g/dL Albumin (3.5-5.0) g/dL Urine Color Yellow Urine Appearance Cloudy H (Clear) Urine pH 8.5 H (5.0-8.0) Ur Specific [place] 1.026 (1.001-1.035) Urine Protein 1+ H (Negative) Urine Glucose (UA) Negative (Negative) Urine Ketones Trace H (Negative) Urine Blood Negative (Negative) Urine Nitrite Negative (Negative) Urine Bilirubin Negative (Negative) Urine Urobilinogen >12.0 (<2.0) mg/dL Ur Leukocyte Esterase Negative (Negative) Urine RBC 1 (0-5) /hpf Urine WBC 2 (0-5) /hpf Ur Squamous Epith Cells 4 (0-4) /hpf Hyaline Casts 3 H (0-2) /lpf Urine Mucus Rare H (None) /hpf Urine Opiates Screen Detected H (NotDetected) Ur Oxycodone Screen Not Detected (NotDetected) Urine Methadone Screen Not Detected (NotDetected) Ur Propoxyphene Screen Not Detected (NotDetected) Ur Barbiturates Screen Detected H (NotDetected) U Tricyclic Antidepress Not Detected (NotDetected) Ur Phencyclidine Scrn Not Detected (NotDetected) Ur Amphetamines Screen Not Detected (NotDetected) U Methamphetamines Scrn Detected H (NotDetected) U Benzodiazepines Scrn Not Detected (NotDetected) Urine Cocaine Screen Not Detected (NotDetected) U Marijuana (THC) Screen Detected H (NotDetected) - Radiology Data Radiology results: report reviewed, image reviewed Chest x-ray: Normal chest. No change. Critical Care Time Critical Care Time: Yes Total Critical Care Time: 45 Critical Care Time: Sepsis protocol at 11 PM. Antibiotics ordered. Fluids ordered. At 130 mL per hour. Patient oriented to liter bolus. Disposition Clinical Impression: Sepsis, Abscess of left thigh, Leukocytosis, Fever Disposition: ADMITTED IP TO THIS HOSP Condition: Stable Is patient prescribed a controlled substance at d/c from ED?: No Referrals: Augustine Chairez DO [Primary Care Provider] - 1-2 days Time of Disposition: 00:04
--- NOTE | 2020-10-16 00:06 | P.HPIM ---
History of Present Illness H&P Date: 10/15/20 Chief Complaint: left thigh pain 40 year old female with IV drug abuse, hep C, frequent hospitalization for skin abscesses, she reports a history of endocarditis patient is currently in a lot of pain, she is not volunteering detailed information. she reports that she is here due to abscess over her left thigh , she does not tell me how long it has been going on for, she reports nausea and abd discomfort. denies any GI bleeding , or vomiting. she admits to actively using heroin, she does not tell me how she got the injury to her left thigh. she reports that she is in a lot of pain and requesting pain meds. reviewing medical records, last time she presented with abscess over the right UE. and has left AMA from the ED. blood work showed leukocytosis , patient had fever 102, and tachycardia. hyponatremia CXR was unremarkable Review of Systems limited review of system , patient is not cooperative, pertinent positives and negatives as per HPI, otherwise, patient was not answering my questions Past Medical History Past Medical History: Asthma, GERD/Reflux, Seizure Disorder History of Any Multi-Drug Resistant Organisms: None Reported Past Surgical History: Appendectomy, Cholecystectomy, Hysterectomy, Orthopedic Surgery Additional Past Surgical History / Comment(s): rt arm surgery Past Anesthesia/Blood Transfusion Reactions: No Reported Reaction Past Psychological History: Anxiety, Bipolar, PTSD Smoking Status: Current every day smoker Past Alcohol Use History: None Reported Past Drug Use History: Heroin, IV Drug Use, Marijuana - Past Family History family Family Medical History: No Reported History Medications and Allergies Home Medications Medication Instructions Recorded Confirmed Type No Known Home Medications 06/30/20 10/15/20 History Allergies Allergy/AdvReac Type Severity Reaction Status Date / Time Iodinated Contrast Media Allergy Anaphylaxis Verified 10/15/20 23:39 sulfamethoxazole AdvReac Diarrhea Verified 10/15/20 23:39 [From Bactrim] trimethoprim [From Bactrim] AdvReac Diarrhea Verified 10/15/20 23:39 Opioids AdvReac Severe Patient Uncoded 06/30/20 18:02 does not want to receive any opioids Physical Exam Vitals: Vital Signs Temp Pulse Resp BP Pulse Ox 10/15/20 22:31 99.9 F H 117 H 10/15/20 20:58 102 F H 115 H 20 105/68 97 Intake and Output 09/07/3010/15/20 10/16/20 14:59 22:59 06:59 Other: Weight 52.163 kg Constitutional: patient is tearful, claims to be in a lot of pain from left thigh abscess. , cachectic , thin hair Eyes: Anicteric sclerae, moist conjunctiva, erythema over the upper right eyelid Pupils equal round reactive to light ENMT: NC/AT Oropharynx clear, no erythema, or exudates, poor dental hygiene Neck: Supple, no masses, or JVD No carotid bruits No thyromegaly Lungs: Clear to auscultation, good breath sounds throughout Clear to percussion Normal respiratory effort, no accessory muscle use Cardiovascular: Heart tachycardia regular No murmurs, gallops, or rubs No peripheral edema Abdominal: Soft tenderness to deep palpation of the epigastric region ,. voluntary guarding, no rebound or rigidity Abdomen moving with respiration Normoactive bowel sounds No hepatomegaly, No splenomegaly No palpable mass No abdominal wall hernia noted Skin: multiple skin nodules over bilateral UE, along with needle markings bilaterally over anticubital fossa. left thigh with erythema and open wound 0.5X0.5 cm with foul drainage, and surrounding induration, tender to palpation and warm to the touch Extremities: No digital cyanosis No clubbing Pedal pulses intact and symmetrical Radial pulses intact and symmetrical No calf tenderness capillary refill immediate Psychiatric: Alert and oriented to person, place and time anxious in a lot of pain Neuro moving all extremities , could not participate in neurological exam ,patient is in a lot of pain , and having negative attitude toward exam and not willing to participate, requesting pain meds. Lymphatics: no palpable cervical or supraclavicular , or inguinal lymph nodes Results CBC & Chem 7: 10/15/20 22:13 10/15/20 22:13 Labs: Abnormal Lab Results - Last 24 Hours (Table) 10/15/20 10/15/20 10/15/20 Range/Units 22:13 22:13 22:13 WBC 17.2 H (3.8-10.6) k/uL MCV 78.1 L (80.0-100.0) fL Neutrophils # 13.4 H (1.3-7.7) k/uL Sodium 129 L (137-145) mmol/L Chloride 94 L (98-107) mmol/L Creatinine 0.49 L (0.52-1.04) mg/dL Glucose 109 H (74-99) mg/dL Alkaline Phosphatase 203 H (38-126) U/L Total Protein 6.2 L (6.3-8.2) g/dL Albumin 3.2 L (3.5-5.0) g/dL Urine Appearance Cloudy H (Clear) Urine pH 8.5 H (5.0-8.0) Urine Protein 1+ H (Negative) Urine Ketones Trace H (Negative) Hyaline Casts 3 H (0-2) /lpf Urine Mucus Rare H (None) /hpf Urine Opiates Screen Detected H (NotDetected) Ur Barbiturates Screen Detected H (NotDetected) U Methamphetamines Scrn Detected H (NotDetected) U Marijuana (THC) Screen Detected H (NotDetected) Assessment and Plan Assessment: sepsis with cellulitis and abscess over the left thigh with multiple skin nodules over bilateral UE hyponatremia microcytosis without anemia IV drug abuse with heroin h/o hep c moderate protein calorie malnutrition plan blood culture no murmur appreciated, patient claims to have history of endocarditis empiric antibiotics with vanco , and adding unasyn for anaerobic coverage aggressive IVF hydration , continue with normal saline at `130 cc per hour tylenol for fever pain control with morphine and toradol PPI for GI prophylaxis check lipase follow up CBC , cmp in AM lactic acid unremarkable DVT PPx heparin sc tid full code anticipated length of stay > 2 midnights anticipated discharge , pending clinical course
[2020-10-16] MEDS: ALPRAZolam 0.25 MG TAB PO PRN ×3 (00:11→21:12)
[2020-10-16] MEDS ORDERED: VANCOMYCIN IV PER PHARMACY 1 EACH MISC MISCELLANE PRN (00:11)
[2020-10-16] MEDS: MORPHINE SULFATE 4 MG/ML SYRINGE IVP PRN ×5 (00:11→22:40)
[2020-10-16] MEDS: ONDANSETRON 4 MG/2 ML VIAL IVP PRN (00:16)
[2020-10-16 05:01] LABS: Basophils # (A) 0.1 k/uL (0-0.2); Basophils % (A) 0 %; Eosinophils # (A) 0.1 k/uL (0-0.7); Eosinophils % (A) 0 %; HCT 35.2 % (34.0-46.0); HGB 11.9 gm/dL (11.4-16.0); Lymphocytes # (A) 1.7 k/uL (1.0-4.8); Lymphocytes % (A) 11 %; MCH 26.9 pg (25.0-35.0); MCHC 33.8 g/dL (31.0-37.0); MCV 79.5 fL (80.0-100.0); Mean Platelet Volume 7.6; Monocytes # (A) 0.6 k/uL (0-1.0); Monocytes % (A) 4 %; Neutrophils # (A) 13.2 k/uL (1.3-7.7); Neutrophils % (A) 83 %; Platelet Count 353 k/uL (150-450); RBC 4.43 m/uL (3.80-5.40); RDW 14.8 % (11.5-15.5); WBC 15.9 k/uL (3.8-10.6)
[2020-10-16] MEDS: HEPARIN SODIUM,PORCINE/PF 5,000 UNIT/0.5 ML SYRINGE SQ SCH ×4 (05:01→14:19)
[2020-10-16 05:18] LABS: ALT 24 U/L (4-34); AST 28 U/L (14-36); African American GFR (CKD) >90 (>60 ml/min/1.73 sqM); Albumin 2.7 g/dL (3.5-5.0); Alkaline Phosphatase 159 U/L (38-126); Anion Gap 8 mmol/L; Blood Urea Nitrogen 15 mg/dL (7-17); Calcium 8.4 mg/dL (8.4-10.2); Carbon Dioxide 26 mmol/L (22-30); Chloride 97 mmol/L (98-107); Glucose 111 mg/dL (74-99); Non-African American GFR(CKD) >90 (>60 ml/min/1.73 sqM); Potassium 3.7 mmol/L (3.5-5.1); Sodium 131 mmol/L (137-145); Total Bilirubin 0.4 mg/dL (0.2-1.3); Total Protein 5.6 g/dL (6.3-8.2)
[2020-10-16] MEDS: AMPICILLIN-SULBACTAM 3 GM in SODIUM CHLORIDE 0.9% 100 ML IVPB SCH ×3 (08:31→17:11)
[2020-10-16] MEDS: PANTOPRAZOLE 40 MG TABLET PO SCH (08:31)
[2020-10-16] MEDS: SODIUM CHLORIDE 0.9% 1,000 ML IV SCH ×2 (08:32→22:30)
[2020-10-16 12:17] LABS: Lipase 16 U/L (14-63)
[2020-10-16] MEDS: VANCOMYCIN 1,000 MG in SODIUM CHLORIDE 0.9% 250 ML IVPB SCH ×2 (12:48→20:58)
--- NOTE | 2020-10-16 14:09 | P.PN ---
Objective - Vital Signs Vital signs: Vital Signs Temp 98.5 F 10/16/20 08:00 Pulse 107 H 10/16/20 08:30 Resp 18 10/16/20 08:30 BP 113/77 10/16/20 08:00 Pulse Ox 98 10/16/20 08:00 Intake & Output 10/15/20 10/16/20 10/16/20 18:59 06:59 18:59 Weight 52.163 kg Other: # Voids 1 - Labs CBC & Chem 7: 10/16/20 04:30 10/16/20 04:30 Labs: Abnormal Lab Results - Last 24 Hours (Table) 10/15/20 10/15/20 10/15/20 Range/Units 22:13 22:13 22:13 WBC 17.2 H (3.8-10.6) k/uL MCV 78.1 L (80.0-100.0) fL Neutrophils # 13.4 H (1.3-7.7) k/uL Sodium 129 L (137-145) mmol/L Chloride 94 L (98-107) mmol/L Creatinine 0.49 L (0.52-1.04) mg/dL Glucose 109 H (74-99) mg/dL Alkaline Phosphatase 203 H (38-126) U/L Total Protein 6.2 L (6.3-8.2) g/dL Albumin 3.2 L (3.5-5.0) g/dL Urine Appearance Cloudy H (Clear) Urine pH 8.5 H (5.0-8.0) Urine Protein 1+ H (Negative) Urine Ketones Trace H (Negative) Hyaline Casts 3 H (0-2) /lpf Urine Mucus Rare H (None) /hpf Urine Opiates Screen Detected H (NotDetected) Ur Barbiturates Screen Detected H (NotDetected) U Methamphetamines Scrn Detected H (NotDetected) U Marijuana (THC) Screen Detected H (NotDetected) 10/16/20 10/16/20 Range/Units 04:30 04:30 WBC 15.9 H (3.8-10.6) k/uL MCV 79.5 L (80.0-100.0) fL Neutrophils # 13.2 H (1.3-7.7) k/uL Sodium 131 L (137-145) mmol/L Chloride 97 L (98-107) mmol/L Creatinine 0.43 L (0.52-1.04) mg/dL Glucose 111 H (74-99) mg/dL Alkaline Phosphatase 159 H (38-126) U/L Total Protein 5.6 L (6.3-8.2) g/dL Albumin 2.7 L (3.5-5.0) g/dL Urine Appearance (Clear) Urine pH (5.0-8.0) Urine Protein (Negative) Urine Ketones (Negative) Hyaline Casts (0-2) /lpf Urine Mucus (None) /hpf Urine Opiates Screen (NotDetected) Ur Barbiturates Screen (NotDetected) U Methamphetamines Scrn (NotDetected) U Marijuana (THC) Screen (NotDetected) Microbiology - Last 24 Hours (Table) 10/15/20 22:13 Wound Culture - Preliminary Thigh - Left Assessment and Plan Assessment: 40 year old female with IV drug abuse, hep C, frequent hospitalization for skin abscesses, she reports a history of endocarditis sepsis with cellulitis and abscess over the left thigh hyponatremia microcytosis without anemia IV drug abuse with heroin h/o hep c moderate protein calorie malnutrition plan blood culture pending no murmur appreciated, patient claims to have history of endocarditis empiric antibiotics with vanco and unasyn aggressive IVF hydration Awaiting infectious disease and general surgery consult tylenol for fever pain control with morphine and toradol PPI for GI prophylaxis lactic acid unremarkable DVT PPx heparin sc tid full code anticipated discharge , pending clinical course
[2020-10-16] MEDS: ACETAMINOPHEN TAB 325 MG TAB PO PRN (14:18)
[2020-10-16] MEDS: KETOROLAC 15 MG/ML 1 ML VIAL IVP PRN ×2 (14:52→20:59)
--- NOTE | 2020-10-16 15:04 | US ---
EXAMINATION TYPE: US extremity nonvasculr ltd LT DATE OF EXAM: 10/16/2020 COMPARISON: No previous ultrasound, CT of right forearm 04/16/20 CLINICAL HISTORY: Rule out abscess formation. Patient states Left thigh red/swelling x 1 week post IV drug abuse. Several "puncture" wounds, some open and oozing pus, others closed and to a head. Fever, sepsis. Areas of fluid collections throughout left thigh at area of redness/swelling, ? abscess. Patient unab le to tolerate any more scanning/pictures. Complex Fluid collection with internal echos (? pus) noted at areas of "puncture" wounds. No color-flow is evident within the scattered fluid collections within the subcutaneous tissues. No w ell-formed wall to confirm abscess is identified. Infection remains most likely within the differenti al. IMPRESSION: 1. Ill-defined subcutaneous fluidlike collections. Findings are suspicious for infection.
[2020-10-16] MEDS: MORPHINE SULFATE 2 MG/ML SYRINGE IVP PRN ×2 (16:20→19:43)
[2020-10-17] MEDS ORDERED: methylPREDNISolone SOD SUCCI 125 MG/2 ML VIAL IV STA (01:22)
[2020-10-17] MEDS ORDERED: FAMOTIDINE 20 MG/2 ML VIAL IV STA (01:22)
[2020-10-17] MEDS ORDERED: diphenhydrAMINE 50 MG/ML 1 ML VIAL IVP STA (01:22)
[2020-10-17] MEDS ORDERED: PIPERACILLIN-TAZOBACTAM 3.375 GM in SODIUM CHLORIDE 0.9% 100 ML IVPB SCH ×2 (01:30→14:00)
[2020-10-17] MEDS ORDERED: SODIUM CHLORIDE 0.9% 1,000 ML IV ONE (01:33)
--- NOTE | 2020-10-17 01:33 | P.EN ---
RN requested patient evaluation patient is having considerable amount of pain , she described it as sharp tearing pain radiating beyond her draining wound and feels it in her groin area extending into her lower abd. morphine helps only for 10 minutes upon exam , erythema over the left inner thigh has slightly improved , still evidence of skin edema, very tender to palpation over and around her draining wound , also tender over the areas that has cleared the erythema medially extending into her left groin area and lower abd. no crepitus appreciated . but now I noticed new bullae and blisters that did not manifest upon presentation over the left inner thigh vital sings are stable , blood pressure is hypotensive compared to presentation with systolic in low 90s assessment concerns regarding necrotizing fadciatis with nino gangrene plan change antibiotics to zosyn, clinda and continue with vanco IVF hydration with normal saline bolus 1 L pain control increase frequency of morphine as tolerated stat CT of the pelvis area with contrast premedicate with solumedrol , famotidine and benadryl due to iodinated contrast allergy
[2020-10-17] MEDS: MORPHINE SULFATE 4 MG/ML SYRINGE IVP PRN ×7 (01:44→14:20)
[2020-10-17] MEDS: ACETAMINOPHEN TAB 325 MG TAB PO PRN (02:42)
[2020-10-17 03:19] LABS: AST 32 U/L (14-36); African American GFR (CKD) >90 (>60 ml/min/1.73 sqM); Albumin 2.2 g/dL (3.5-5.0); Albumin/Globulin Ratio 0.8; Alkaline Phosphatase 124 U/L (38-126); Anion Gap 8 mmol/L; Blood Urea Nitrogen 8 mg/dL (7-17); Calcium 7.6 mg/dL (8.4-10.2); Carbon Dioxide 20 mmol/L (22-30); Chloride 99 mmol/L (98-107); Creatine Kinase <20 U/L (30-135); Globulin 2.9 g/dL; Glucose 187 mg/dL (74-99); Non-African American GFR(CKD) >90 (>60 ml/min/1.73 sqM); Potassium 3.3 mmol/L (3.5-5.1); Sodium 127 mmol/L (137-145); Total Bilirubin 0.4 mg/dL (0.2-1.3); Total Protein 5.1 g/dL (6.3-8.2)
[2020-10-17 03:23] LABS: ALT 25 U/L (4-34)
--- NOTE | 2020-10-17 03:27 | CT ---
EXAMINATION TYPE: CT abdomen pelvis w con DATE OF EXAM: 10/17/2020 COMPARISON: 05/15/2011 HISTORY: Rule out Kailee's Disease. skin infection on pelvis area plus left thigh CT DLP: 905 mGycm Automated exposure control for dose reduction was used. CONTRAST: Performed with IV Contrast, patient injected with 100 mL of Isovue 300. Images obtained from the diaphragm to the floor the pelvis with IV contrast. There is 2.5 cm somewhat rounded infiltrate left lower lobe posteriorly. There is no pleural effusion . There is minimal atelectasis right lower lobe. Heart size is normal. There is no pericardial effusi on. Spleen measures 11 cm. Liver is intact. The bile ducts are not dilated. Stomach is intact. There is n o pancreatic mass. There are clips from cholecystectomy. There is no adrenal mass. Kidneys show satisfactory contrast opacification. There is no hydronephrosi s. Delayed images show normal renal excretion. There are multiple distended gas and fluid-filled smal l bowel loops. These measure up to 3 cm. There is no transition point identified. Bladder distends sm oothly. There is no inguinal hernia. There is no free fluid in the pelvis. There is no mesenteric gabriel ma. There is no ascites or free air. There is no bowel obstruction. There is subcutaneous edema around the left upper thigh. There are a few left inguinal lymph nodes th at measure up to 12 mm. There are soft tissue air bubbles in the anterior left upper thigh. The lumbar vertebra have normal alignment. Disc spaces are fairly normal. There is no compression fra cture. Bony pelvis is intact. Hip joints are intact. Appendix is not seen. No sign of thickened appen maribell. Uterus appears absent. IMPRESSION: There is small rounded infiltrate left lower lobe likely related to pneumonia or atelectasis. Distended loops of small bowel consistent with ileus that is a change compared to old exam. Subcutaneous edema around the left upper thigh and soft tissue air bubbles consistent with cellulitis and gas forming organism. Gangrene is possible.
[2020-10-17] MEDS: KETOROLAC 15 MG/ML 1 ML VIAL IVP PRN (03:36)
[2020-10-17] MEDS: CLINDAMYCIN 600 MG in DEXTROSE 5% IN WATER 50 ML IVPB SCH ×4 (03:37→09:27)
[2020-10-17] MEDS: HEPARIN SODIUM,PORCINE/PF 5,000 UNIT/0.5 ML SYRINGE SQ SCH ×3 (03:41→18:51)
[2020-10-17] MEDS: AMPICILLIN-SULBACTAM 3 GM in SODIUM CHLORIDE 0.9% 100 ML IVPB SCH (03:56)
[2020-10-17] MEDS ORDERED: VANCOMYCIN TROUGH DUE 1 EACH MISC MISCELLANE ONE (05:00)
[2020-10-17] MEDS ORDERED: VANCOMYCIN 1,000 MG in SODIUM CHLORIDE 0.9% 250 ML IVPB SCH (05:00)
[2020-10-17 05:53] LABS: African American GFR (CKD) >90 (>60 ml/min/1.73 sqM); Non-African American GFR(CKD) >90 (>60 ml/min/1.73 sqM)
[2020-10-17] MEDS: PANTOPRAZOLE 40 MG TABLET PO SCH (08:02)
[2020-10-17] MEDS: SODIUM CHLORIDE 0.9% 1,000 ML IV SCH (10:40)
[2020-10-17] MEDS: VANCOMYCIN 1,250 MG in SODIUM CHLORIDE 0.9% 250 ML IVPB SCH ×2 (12:09→22:36)
[2020-10-17] MEDS: ALPRAZolam 0.25 MG TAB PO PRN ×2 (14:23→22:39)
--- NOTE | 2020-10-17 14:29 | P.GSCN ---
History of Present Illness Consult date: 10/17/20 History of present illness: CHIEF COMPLAINT: Left thigh pain HISTORY OF PRESENT ILLNESS: This is a 40-year-old female with IV abuse, hep C and prior history of skin abscesses. Patient had a prior ID in April 2020 for a right arm abscess. At that time she left AGAINST MEDICAL ADVICE. Patient presents to the hospital now complaining of severe left thigh pain. She had been febrile and tachycardic with elevated white count on admission. She is currently on IV antibiotics. She's been seen by medical service the patient had significant pain in her left thigh during the evening and a computed tomography scan of the abdomen and pelvis have been ordered showing small rounded infiltrate left lower lobe likely related to pneumonia or atelectasis. Distended loops of small bowel consistent with ileus. Subcutaneous edema around the left upper thigh and soft tissue air bubbles consistent with cellulitis and gas-forming organism. Gangrene is possible. Patient does have follow odor purulent drainage from a small hole in the left thigh. Patient reports injecti ng intravenous drugs in the left thigh. Patient denies any nausea or vomiting. She does report it's been a few days since her last bowel movement. She reports a decreased appetite. Patient seen and examined with Dr. ruiz PAST MEDICAL HISTORY: See list. PAST SURGICAL HISTORY: See list. MEDICATIONS: See list. ALLERGIES: See list. SOCIAL HISTORY: No illicit drug use. REVIEW OF SYSTEMS: CONSTITUTIONAL: Denies fever or chills. HEENT: Denies blurred vision, vision changes, or eye pain. Denies hemoptysis CARDIOVASCULAR: Denies chest pain or pressure. RESPIRATORY: No shortness of breath. GASTROINTESTINAL: See HPI for pertinent findings HEMATOLOGIC: Denies bleeding disorders. GENITOURINARY: Denies any blood in urine or increased urinary frequency. SKIN: Denies pruitis. Denies rash. PHYSICAL EXAM: VITAL SIGNS: Reviewed GENERAL: Well-developed in no acute distress. HEENT: No sclera icterus. Extraocular movements grossly intact. Moist buccal mucosa. Head is atraumatic, normocephalic. No nasal drainage. ABDOMEN: Soft. Nondistended. Nontender NEUROLOGIC: Alert and oriented. Cranial nerves II through XII grossly intact. Extremities left thigh 3 mm hole with surrounding erythema that goes to the knee and up towards the groin. There is a purulent foul order drainage from the hole. There is a bullae that is starting to drain as well LABORATORY DATA: WBC 17.2 down to 15.9 sodium is 127 potassium is 3.3 creatinine 0.37 CRP 8 Drug screen opiates, barbiturates, meth amphetamines and marijuana detected IMAGING: Computed tomography scan findings as stated above Ultrasound of left leg ill-defined subcutaneous fluid collection. Findings are suspicious for infection ASSESSMENT: 1. Left thigh abscess with cellulitis. Computed tomography scan findings noted subcutaneous edema on the left upper thigh and soft tissue air bubbles consistent with cellulitis and gas-forming organism. Gangrene is possible 2. History of IVDA PLAN: -Patient scheduled for incision and drainage of left thigh abscess tomorrow, 10/18/[address] ruiz -Keep patient nothing by mouth after midnight -Continue antibiotics -Continue pain medication as needed -Continue IV fluids Thank you for this consultation Physician Diamond Sizer note has been reviewed by physician. Signing provider agrees with the documented findings, assessment, and plan of care. Past Medical History Past Medical History: Asthma, GERD/Reflux, Seizure Disorder History of Any Multi-Drug Resistant Organisms: None Reported Past Surgical History: Appendectomy, Cholecystectomy, Hysterectomy, Orthopedic Surgery Additional Past Surgical History / Comment(s): rt arm surgery Past Anesthesia/Blood Transfusion Reactions: No Reported Reaction Past Psychological History: Anxiety, Bipolar, PTSD Smoking Status: Current every day smoker Past Alcohol Use History: None Reported Past Drug Use History: Heroin, IV Drug Use, Marijuana - Past Family History family Family Medical History: No Reported History Medications and Allergies Home Medications Medication Instructions Recorded Confirmed Type No Known Home Medications 06/30/20 10/15/20 History Allergies Allergy/AdvReac Type Severity Reaction Status Date / Time Iodinated Contrast Media Allergy Anaphylaxis Verified 10/15/20 23:39 sulfamethoxazole AdvReac Diarrhea Verified 10/15/20 23:39 [From Bactrim] trimethoprim [From Bactrim] AdvReac Diarrhea Verified 10/15/20 23:39 Opioids AdvReac Severe Patient Uncoded 06/30/20 18:02 does not want to receive any opioids Surgical - Exam Vital Signs Temp Pulse Resp BP Pulse Ox 102 F H 115 H 20 105/68 97 10/15/20 20:58 10/15/20 20:58 10/15/20 20:58 10/15/20 20:58 10/15/20 20:58 Results - Labs 10/16/20 04:30 10/17/20 05:10 Abnormal Lab Results - Last 24 Hours (Table) 10/17/20 10/17/20 10/17/20 Range/Units 02:49 02:49 05:10 ESR 31 H (0-20) mm/hr Sodium 127 L (137-145) mmol/L Potassium 3.3 L (3.5-5.1) mmol/L Carbon Dioxide 20 L (22-30) mmol/L Creatinine 0.38 L 0.37 L (0.52-1.04) mg/dL Glucose 187 H (74-99) mg/dL Calcium 7.6 L (8.4-10.2) mg/dL Creatine Kinase <20 L (30-135) U/L C-Reactive Protein 8.0 H (<1.0) mg/dL Total Protein 5.1 L (6.3-8.2) g/dL Albumin 2.2 L (3.5-5.0) g/dL Microbiology - Last 24 Hours (Table) 10/15/20 22:13 Blood Culture - Preliminary Blood No Growth after 24 hours 10/15/20 22:13 Blood Culture - Preliminary Blood No Growth after 24 hours 10/15/20 22:13 Gram Stain - Preliminary Thigh - Left Wound Culture - Preliminary Diabetes panel 10/17/20 10/17/20 Range/Units 02:49 05:10 Sodium 127 L (137-145) mmol/L Potassium 3.3 L (3.5-5.1) mmol/L Chloride 99 (98-107) mmol/L Carbon Dioxide 20 L (22-30) mmol/L BUN 8 (7-17) mg/dL Creatinine 0.38 L 0.37 L (0.52-1.04) mg/dL Glucose 187 H (74-99) mg/dL Calcium 7.6 L (8.4-10.2) mg/dL AST 32 (14-36) U/L ALT 25 (4-34) U/L Alkaline Phosphatase 124 (38-126) U/L Total Protein 5.1 L (6.3-8.2) g/dL Albumin 2.2 L (3.5-5.0) g/dL Calcium panel 10/17/20 Range/Units 02:49 Calcium 7.6 L (8.4-10.2) mg/dL Albumin 2.2 L (3.5-5.0) g/dL Pituitary panel 10/17/20 10/17/20 Range/Units 02:49 05:10 Sodium 127 L (137-145) mmol/L Potassium 3.3 L (3.5-5.1) mmol/L Chloride 99 (98-107) mmol/L Carbon Dioxide 20 L (22-30) mmol/L BUN 8 (7-17) mg/dL Creatinine 0.38 L 0.37 L (0.52-1.04) mg/dL Glucose 187 H (74-99) mg/dL Calcium 7.6 L (8.4-10.2) mg/dL Adrenal panel 10/17/20 10/17/20 Range/Units 02:49 05:10 Sodium 127 L (137-145) mmol/L Potassium 3.3 L (3.5-5.1) mmol/L Chloride 99 (98-107) mmol/L Carbon Dioxide 20 L (22-30) mmol/L BUN 8 (7-17) mg/dL Creatinine 0.38 L 0.37 L (0.52-1.04) mg/dL Glucose 187 H (74-99) mg/dL Calcium 7.6 L (8.4-10.2) mg/dL Total Bilirubin 0.4 (0.2-1.3) mg/dL AST 32 (14-36) U/L ALT 25 (4-34) U/L Alkaline Phosphatase 124 (38-126) U/L Total Protein 5.1 L (6.3-8.2) g/dL Albumin 2.2 L (3.5-5.0) g/dL
[2020-10-17] MEDS ORDERED: POTASSIUM CHLORIDE ER 20 MEQ TAB.ER PO STA (14:34)
--- NOTE | 2020-10-17 15:06 | P.PN ---
Subjective Progress Note Date: 10/17/20 No significant change since yesterday. Patient still having a lot of pain. Objective - Vital Signs Vital signs: Vital Signs Temp 98.2 F 10/17/20 14:00 Pulse 90 10/17/20 14:00 Resp 18 10/17/20 14:00 BP 111/78 10/17/20 14:00 Pulse Ox 98 10/17/20 14:00 Intake & Output 10/16/20 10/17/20 10/17/20 18:59 06:59 18:59 Other: Voiding Method Toilet Bedpan # Voids 4 # Bowel Movements 1 - Exam General: The patient is awake and alert, in no distress Eye: there is normal conjunctiva bilaterally. Neck: The neck is supple, there is no JVD. Cardiovascular: Normal S1-S2, no S3-S4, no murmurs. Respiratory: Lungs clear to auscultation bilaterally Gastrointestinal: Abdomen is soft, nontender Musculoskeletal: There is no pedal edema. There is a large area of erythema and induration in the anterior aspect of the left thigh extending up to the groin Neurological:. Speech is normal. Skin: Skin is warm and dry - Labs CBC & Chem 7: 10/16/20 04:30 10/17/20 05:10 Labs: Abnormal Lab Results - Last 24 Hours (Table) 10/17/20 10/17/20 10/17/20 Range/Units 02:49 02:49 05:10 ESR 31 H (0-20) mm/hr Sodium 127 L (137-145) mmol/L Potassium 3.3 L (3.5-5.1) mmol/L Carbon Dioxide 20 L (22-30) mmol/L Creatinine 0.38 L 0.37 L (0.52-1.04) mg/dL Glucose 187 H (74-99) mg/dL Calcium 7.6 L (8.4-10.2) mg/dL Creatine Kinase <20 L (30-135) U/L C-Reactive Protein 8.0 H (<1.0) mg/dL Total Protein 5.1 L (6.3-8.2) g/dL Albumin 2.2 L (3.5-5.0) g/dL Microbiology - Last 24 Hours (Table) 10/15/20 22:13 Blood Culture - Preliminary Blood No Growth after 24 hours 10/15/20 22:13 Blood Culture - Preliminary Blood No Growth after 24 hours 10/15/20 22:13 Gram Stain - Preliminary Thigh - Left Wound Culture - Preliminary Assessment and Plan Assessment: 40 year old female with IV drug abuse, hep C, frequent hospitalization for skin abscesses, she reports a history of endocarditis sepsis with cellulitis and abscess over the left thigh hyponatremia microcytosis without anemia IV drug abuse with heroin h/o hep c moderate protein calorie malnutrition plan Seen and evaluated by general surgery, plan for I&D tomorrow blood culture negative to date empiric antibiotics with vanco, clindamycin, and unasyn aggressive IVF hydration Awaiting infectious disease consult tylenol for fever pain control with morphine and toradol PPI for GI prophylaxis lactic acid unremarkable DVT PPx heparin sc tid full code anticipated discharge , pending clinical course
[2020-10-17] MEDS ORDERED: CEFEPIME 2 GM in SODIUM CHLORIDE 0.9% 100 ML IVPB ONE (16:00)
[2020-10-17] MEDS: MORPHINE SULFATE 2 MG/ML SYRINGE IVP PRN ×4 (16:32→22:36)
[2020-10-17] MEDS: ONDANSETRON 4 MG/2 ML VIAL IVP PRN (18:08)
--- NOTE | 2020-10-17 23:24 | P.CONS ---
History of Present Illness - Reason for Consult Consult date: 10/17/20 cellulitis with abscess Requesting physician: Tammie Rider - Chief Complaint left thigh pain and redness x days - History of Present Illness History of present illness : Patient is a 40-year female with a past medical history significant for IV drug use patient presented to [facility] ER 2 nights ago for evaluation of left anterior thigh pain swelling and redness that apparently has been getting worse for the last few days patient denies having history of any trauma do admit to maybe injecting drugs into that area patient described the pain to the thigh left thigh area to be throbbing intensity almost 10 out of 10 with a foul-smelling drainage did have some chills but denies high-grade fever patient on presentation to the ER did have a fever of 102 degree for night patient did have tachycardia and white count of 17.2 urine has been negative urine drug screen was positive for opiates barbiturates amphetamines and marijuana blood culture has been treated with currently pending patient did have an ultrasound which shows ill-defined subcutaneous fluid collection suspicious for infection patient also have a CT of abdominal pelvis small volume infiltrate left lower lobe distended loops of small bowel subcutaneous edema left upper by soft tissue wound consistent with cellulitis or gas-forming organism patient has been started on clindamycin and vancomycin [facility] infectious disease was consulted for further management of antibiotic therapy patient has been evaluated by surgical team and plan for drainage of the left thigh abscess in the a.m. Review of system: CONSTITUTIONAL: Positive for weakness along with the fever. EYES: No complaint. ENT: No complaint. RESPIRATORY: No complaint. CARDIOVASCULAR: No complaint. GENITOURINARY: No complaint. GASTROINTESTINAL: No complaint. MUSCULOSKELETAL: As per history of present illness INTEGUMENTARY: As per history of present illness. PSYCHOLOGIC: No complaint. ENDOCRINE: No complaint. NEUROLOGIC: No complaint. Past medical history : Reviewed, documented below Past surgical history : Reviewed, documented below Social history: Reviewed, documented below Medications: Reviewed, as documented below EXAMINATION: Vital sigans= Reviewed and documented below GENERAL DESCRIPTION: Middle-aged female lying in bed, no distress. No tachypnea or accessory muscle of respiration use. HEENT: Shows Pallor , no scleral icterus. Oral mucous membrane is dry. NECK: Trachea central, no thyromegaly. LUNGS: Unlabored breathing. Clear to auscultation anteriorly. No wheeze or crackle. HEART: S1, S2, regular rate and rhythm. ABDOMEN: Soft, no tenderness , guarding or rigidity EXTREMITIES: Left anterior thigh area did have a swelling redness and purulent drainage. SKIN: No rash, no masses palpable. NEUROLOGICAL: The patient is awake, alert, oriented x3, mood and affect normal. LABS AND RADIOLOGY: Reviewed results see below Assessment : Patient presented to hospital with sepsis in this we did have a fever elevated white count sources left anterior thigh abscess likely from injection drug use in this patient with history of recurrent skin and soft infection from IV drug use and will need to hold for the gram-positive as well as gram-negative pathogen Plan: 1-vancomycin pharmacy to dose her with a target trough of 15 while watching her kidney function and Vanco trough closely. 2-discontinue Zosyn decrease risk of nephrotoxicity and cefepime to cover for gram-negative 3-await surgical drainage and deep culture We will follow on clinical condition and cultures to further adjust medication if needed Thank you for this consultation we will follow the patient along with you Past Medical History Past Medical History: Asthma, GERD/Reflux, Seizure Disorder History of Any Multi-Drug Resistant Organisms: None Reported Past Surgical History: Appendectomy, Cholecystectomy, Hysterectomy, Orthopedic Surgery Additional Past Surgical History / Comment(s): rt arm surgery Past Anesthesia/Blood Transfusion Reactions: No Reported Reaction Past Psychological History: Anxiety, Bipolar, PTSD Smoking Status: Current every day smoker Past Alcohol Use History: None Reported Past Drug Use History: Heroin, IV Drug Use, Marijuana - Past Family History family Family Medical History: No Reported History Medications and Allergies Home Medications Medication Instructions Recorded Confirmed Type No Known Home Medications 06/30/20 10/15/20 History Allergies Allergy/AdvReac Type Severity Reaction Status Date / Time Iodinated Contrast Media Allergy Anaphylaxis Verified 10/15/20 23:39 sulfamethoxazole AdvReac Diarrhea Verified 10/15/20 23:39 [From Bactrim] trimethoprim [From Bactrim] AdvReac Diarrhea Verified 10/15/20 23:39 Opioids AdvReac Severe Patient Uncoded 06/30/20 18:02 does not want to receive any opioids Physical Exam Vitals: Vital Signs Temp Pulse Resp BP Pulse Ox 10/17/20 07:05 97.9 F 87 18 104/66 98 10/17/20 02:00 101.8 F H 111 H 20 106/69 97 10/16/20 19:48 98.2 F 84 16 95/58 99 10/16/20 15:15 98.6 F 129 H 17 91/54 96 10/16/20 14:16 100.8 F H Intake and Output 10/16/20 10/17/20 10/17/20 22:59 06:59 14:59 Other: Voiding Method Toilet Bedpan # Voids 4 # Bowel Movements 1 Results CBC & Chem 7: 10/16/20 04:30 10/17/20 05:10 Labs: Abnormal Lab Results - Last 24 Hours (Table) 10/17/20 10/17/20 10/17/20 Range/Units 02:49 02:49 05:10 ESR 31 H (0-20) mm/hr Sodium 127 L (137-145) mmol/L Potassium 3.3 L (3.5-5.1) mmol/L Carbon Dioxide 20 L (22-30) mmol/L Creatinine 0.38 L 0.37 L (0.52-1.04) mg/dL Glucose 187 H (74-99) mg/dL Calcium 7.6 L (8.4-10.2) mg/dL Creatine Kinase <20 L (30-135) U/L C-Reactive Protein 8.0 H (<1.0) mg/dL Total Protein 5.1 L (6.3-8.2) g/dL Albumin 2.2 L (3.5-5.0) g/dL Microbiology - Last 24 Hours (Table) 10/15/20 22:13 Blood Culture - Preliminary Blood No Growth after 24 hours 10/15/20 22:13 Blood Culture - Preliminary Blood No Growth after 24 hours 10/15/20 22:13 Gram Stain - Preliminary Thigh - Left Wound Culture - Preliminary
[2020-10-18] MEDS: MORPHINE SULFATE 2 MG/ML SYRINGE IVP PRN ×9 (00:40→23:16)
[2020-10-18] MEDS: CEFEPIME 2 GM in SODIUM CHLORIDE 0.9% 100 ML IVPB SCH ×4 (00:41→23:20)
[2020-10-18] MEDS: SODIUM CHLORIDE 0.9% 1,000 ML IV SCH ×2 (00:41→17:28)
[2020-10-18] MEDS: HEPARIN SODIUM,PORCINE/PF 5,000 UNIT/0.5 ML SYRINGE SQ SCH ×2 (01:44→15:56)
[2020-10-18] MEDS: VANCOMYCIN 1,250 MG in SODIUM CHLORIDE 0.9% 250 ML IVPB SCH ×2 (04:54→17:19)
[2020-10-18 05:53] LABS: African American GFR (CKD) >90 (>60 ml/min/1.73 sqM); Anion Gap 5 mmol/L; Blood Urea Nitrogen 6 mg/dL (7-17); Calcium 8.4 mg/dL (8.4-10.2); Carbon Dioxide 28 mmol/L (22-30); Chloride 107 mmol/L (98-107); Glucose 109 mg/dL (74-99); Magnesium 1.9 mg/dL (1.6-2.3); Non-African American GFR(CKD) >90 (>60 ml/min/1.73 sqM); Potassium 3.5 mmol/L (3.5-5.1); Sodium 140 mmol/L (137-145)
[2020-10-18 05:56] LABS: HCT 27.7 % (34.0-46.0); MCH 26.2 pg (25.0-35.0); MCHC 33.5 g/dL (31.0-37.0); MCV 78.3 fL (80.0-100.0); Mean Platelet Volume 7.3; Platelet Count 449 k/uL (150-450); RBC 3.53 m/uL (3.80-5.40); RDW 14.9 % (11.5-15.5); WBC 17.2 k/uL (3.8-10.6)
[2020-10-18 06:01] LABS: HGB 9.3 gm/dL (11.4-16.0)
[2020-10-18 07:14] LABS: Band Neutrophils % 14 %; Lymphocytes # (M) 0.52 k/uL (1.0-4.8); Monocytes # (M) 0.34 k/uL (0-1.0); Neutrophils % (M) 81 %; Nucleated Red Blood Cells 0 /100 WBC (0-0); Total Cells Counted 100
[2020-10-18] MEDS: PANTOPRAZOLE 40 MG TABLET PO SCH (07:29)
[2020-10-18] MEDS ORDERED: VANCOMYCIN TROUGH DUE 1 EACH MISC MISCELLANE ONE (12:00)
--- NOTE | 2020-10-18 12:14 | P.PN ---
Subjective Left thigh now With open wound draining seropurulent drainage Objective - Vital Signs Vital signs: Vital Signs Temp 98.5 F 10/18/20 00:38 Pulse 65 10/18/20 00:38 Resp 14 10/18/20 00:38 BP 101/60 10/18/20 08:37 Pulse Ox 98 10/18/20 00:38 Intake & Output 10/17/20 10/18/20 10/18/20 18:59 06:59 18:59 Other: # Voids 3 # Bowel Movements 1 - Exam General: The patient is awake and alert, in no distress Eye: there is normal conjunctiva bilaterally. Neck: The neck is supple, there is no JVD. Cardiovascular: Normal S1-S2, no S3-S4, no murmurs. Respiratory: Lungs clear to auscultation bilaterally Gastrointestinal: Abdomen is soft, nontender Musculoskeletal: There is no pedal edema. There is a large area of erythema and induration in the anterior aspect of the left thigh extending up to the groin Neurological:. Speech is normal. Skin: Skin is warm and dry - Labs CBC & Chem 7: 10/18/20 05:02 10/18/20 05:02 Labs: Abnormal Lab Results - Last 24 Hours (Table) 10/18/20 10/18/20 10/18/20 Range/Units 05:02 05:02 05:02 WBC 17.2 H (3.8-10.6) k/uL RBC 3.53 L (3.80-5.40) m/uL Hgb 9.3 L D (11.4-16.0) gm/dL Hct 27.7 L (34.0-46.0) % MCV 78.3 L (80.0-100.0) fL Neutrophils # (Manual) 16.30 H (1.3-7.7) k/uL Lymphocytes # (Manual) 0.52 L (1.0-4.8) k/uL BUN 6 L (7-17) mg/dL Creatinine 0.41 L 0.40 L (0.52-1.04) mg/dL Glucose 109 H (74-99) mg/dL Microbiology - Last 24 Hours (Table) 10/15/20 22:13 Gram Stain - Final Thigh - Left Wound Culture - Final 10/15/20 22:13 Blood Culture - Preliminary Blood No Growth after 48 hours 10/15/20 22:13 Blood Culture - Preliminary Blood No Growth after 48 hours Assessment and Plan Assessment: 40 year old female with IV drug abuse, hep C, frequent hospitalization for skin abscesses, she reports a history of endocarditis sepsis with cellulitis and abscess over the left thigh hyponatremia microcytosis without anemia IV drug abuse with heroin h/o hep c moderate protein calorie malnutrition plan Seen and evaluated by general surgery, plan for I&D today blood culture negative to date empiric antibiotics managed by infectious disease aggressive IVF hydration tylenol for fever pain control with morphine and toradol PPI for GI prophylaxis lactic acid unremarkable DVT PPx heparin sc tid full code anticipated discharge , pending clinical course
[2020-10-18] MEDS ORDERED: LACTATED RINGERS 1,000 ML IV ONE ×2 (12:23→16:58)
[2020-10-18] MEDS ORDERED: ONDANSETRON 4 MG/2 ML VIAL IVP ONE (12:53)
[2020-10-18] MEDS ORDERED: ACETAMINOPHEN TAB 500 MG TAB PO ONE (12:53)
[2020-10-18] MEDS ORDERED: DEXAMETHASONE SOD PHOSPHATE 4 MG/ML 1 ML VIAL IVP ONE (12:53)
[2020-10-18] MEDS ORDERED: HYDROmorphone 0.5 MG/0.5 ML SYRINGE IVP ONE ×5 (12:57→15:17)
[2020-10-18] MEDS ORDERED: ACETAMINOPHEN TAB 500 MG TAB ONE (12:59)
[2020-10-18] MEDS: KETOROLAC 15 MG/ML 1 ML VIAL IVP PRN ×2 (13:01→23:34)
[2020-10-18] MEDS ORDERED: MIDAZOLAM 2 MG/2 ML VIAL IVP ONE (14:30)
[2020-10-18] MEDS ORDERED: HYDROmorphone 1 MG/ML 1 ML SYRINGE ONE (15:05)
[2020-10-18] MEDS ORDERED: fentaNYL (PF) 50 MCG/ML 2 ML AMP ONE (15:50)
[2020-10-18] MEDS ORDERED: SUCCINYLCHOLINE CHLORIDE 100 MG/5 ML SYR IV ONE (15:50)
[2020-10-18] MEDS ORDERED: MIDAZOLAM 2 MG/2 ML VIAL ONE (15:50)
[2020-10-18] MEDS ORDERED: PROPOFOL 10 MG/ML 20 ML VIAL IV ONE (15:50)
[2020-10-18] MEDS ORDERED: LIDOCAINE 1% INJ 10MG/ML (20 ML MDV) ONE (15:50)
[2020-10-18] MEDS ORDERED: KETAMINE 10 MG/ML 20 ML VIAL ONE (15:50)
[2020-10-18] MEDS ORDERED: HYDROmorphone (PF) 1 MG/ML ONE (15:50)
--- NOTE | 2020-10-18 16:22 | P.OP ---
Date of Procedure: 10/18/20 Preoperative Diagnosis: Left thigh abscess Postoperative Diagnosis: Left thigh abscess Procedure(s) Performed: Incision and drainage of left thigh abscess Anesthesia: RAUL Surgeon: Shahbaz Cm Estimated Blood Loss (ml): 5 Pathology: other (Wound culture) Condition: stable Disposition: PACU Description of Procedure: The patient's placed the operative table in supine position. Her left thigh was prepped and draped usual sterile fashion. A incision was made over the abscess. The abscess was then tracked towards the medial thigh. This was opened inferiorly and superiorly. The wound was checked reverse this. There is no bleeding seen. The wound was then packed with wet-to-dry Kerlix. Patient top she will was sent to recovery room stable condition.
--- NOTE | 2020-10-18 16:54 | PN ---
PROGRESS NOTE DATE OF SERVICE: 10/18/2020 REASON FOR FOLLOWUP: Left thigh abscess. INTERVAL HISTORY: Patient was seen on rounds this morning. The patient has been afebrile. She is currently waiting for I and D of the left thigh abscess. Still complaining of significant pain and wants the pain medication to be adjusted up. No chest pain, shortness of breath or cough and no diarrhea. PHYSICAL EXAMINATION: Blood pressure 113/63 with pulse of 76. Temperature is 97.5. She is 95% on 2 L nasal cannula. General description is a middle-aged female lying in bed in no distress. Respiratory system: Unlabored breathing, clear to auscultation anteriorly. Heart S1, S2. Regular rate and rhythm. Abdomen is soft. No tenderness. Left leg is currently dressed with minimal drainage on the dressing. LABS: Hemoglobin is 9.1, white count 17.2, BUN of 6, creatinine 0.40. Cultures currently pending. DIAGNOSTIC IMPRESSION AND PLAN: Patient with left thigh abscess in this patient who did have history of IV drug use waiting for I and D. Patient is covered with cefepime and vancomycin to continue while waiting for the culture to finalize and monitor clinical course closely. MMODL / IJN: [id number] /
[2020-10-18] MEDS: ALPRAZolam 0.25 MG TAB PO PRN (21:14)
[2020-10-19] MEDS: MORPHINE SULFATE 2 MG/ML SYRINGE IVP PRN ×5 (01:33→09:35)
[2020-10-19 01:37] VITALS: PULSE 60
[2020-10-19] MEDS: HEPARIN SODIUM,PORCINE/PF 5,000 UNIT/0.5 ML SYRINGE SQ SCH (01:45)
[2020-10-19] MEDS ORDERED: VANCOMYCIN 1,250 MG in SODIUM CHLORIDE 0.9% 250 ML IVPB SCH (02:00)
[2020-10-19] MEDS: SODIUM CHLORIDE 0.9% 1,000 ML IV SCH (03:34)
[2020-10-19] MEDS ORDERED: KETOROLAC 15 MG/ML 1 ML VIAL IVP STA (05:19)
[2020-10-19 06:43] VITALS: BP 115/52; RESP 15; TEMP 98
[2020-10-19 07:22] LABS: African American GFR (CKD) >90 (>60 ml/min/1.73 sqM); Anion Gap 5 mmol/L; Blood Urea Nitrogen 11 mg/dL (7-17); Calcium 7.9 mg/dL (8.4-10.2); Carbon Dioxide 26 mmol/L (22-30); Chloride 107 mmol/L (98-107); Glucose 98 mg/dL (74-99); Non-African American GFR(CKD) >90 (>60 ml/min/1.73 sqM); Potassium 3.7 mmol/L (3.5-5.1); Sodium 138 mmol/L (137-145)
[2020-10-19] MEDS: CEFEPIME 2 GM in SODIUM CHLORIDE 0.9% 100 ML IVPB SCH (07:32)
[2020-10-19] MEDS: PANTOPRAZOLE 40 MG TABLET PO SCH (07:33)
[2020-10-19] MEDS: ALPRAZolam 0.25 MG TAB PO PRN (07:46)
[2020-10-19] MEDS ORDERED: HYDROcodone/APAP 5-325MG 1 EACH TAB PO PRN (08:47)
[2020-10-19 11:40] LABS: HCT 28.8 % (37.2-46.3); HGB 9.3 g/dL (12.0-15.0); MCHC 32.3 g/dL (32.0-37.0); MCV 80.4 fL (80.0-97.0); Mean Platelet Volume 10.3 fL (9.5-12.2); Platelet Count 445 X 10*3/uL (140-440); RBC 3.58 X 10*6/uL (4.10-5.20); RDW 15.3 % (11.5-14.5); WBC 9.66 X 10*3/uL (4.50-10.00)
--- NOTE | 2020-10-19 12:06 | P.PN ---
Subjective Progress Note Date: 10/19/20 CHIEF COMPLAINT: Left thigh abscess HISTORY OF PRESENT ILLNESS: Patient is postop day #1 status post incision and drainage of left thigh abscess. Dressing changed at bedside this morning by Dr. Cm. Patient is complaining of pain at her left thigh. She denies any nausea or vomiting. She tolerated diet. She's afebrile. White count has normalized at 9.66 hemoglobin 9.3 Later in the morning nursing staff notified me that patient was found to have heroin in her bed. Patient is talking about leaving AGAINST MEDICAL ADVICE. PHYSICAL EXAM: VITAL SIGNS: Reviewed. GENERAL: Well-developed in no acute distress. HEENT: No sclera icterus. Extraocular movements grossly intact. Moist buccal mucosa. Head is atraumatic, normocephalic. ABDOMEN: Soft. Nondistended. Nontender. NEUROLOGIC: Alert and oriented. Cranial nerves II through XII grossly intact. Extremities: Left thigh no erythema noted around the edges of wound. ASSESSMENT: 1. Left thigh abscess status post incision and drainage PLAN: -Continue local wound care -Antibiotics per ID -Continue pain medication as needed -Continue supportive care Physician Laundry Washer note has been reviewed by physician. Signing provider agrees with the documented findings, assessment, and plan of care. Objective - Vital Signs Vital signs: Vital Signs Temp 98.0 F 10/19/20 06:42 Pulse 60 10/19/20 01:36 Resp 15 10/19/20 06:42 BP 115/52 10/19/20 06:42 Pulse Ox 96 10/19/20 08:10 Intake & Output 10/18/20 10/19/20 10/19/20 18:59 06:59 18:59 Intake Total 1100 Output Total 5 Balance 1095 Intake: IV 1100 Output: Estimated Blood Loss 5 Other: Voiding Method Toilet Bedpan # Voids 3 1 - Labs CBC & Chem 7: 10/19/20 06:24 10/19/20 06:24 Labs: Abnormal Lab Results - Last 24 Hours (Table) 10/19/20 10/19/20 Range/Units 06:24 06:24 RBC 3.58 L (4.10-5.20) X 10*6/uL Hgb 9.3 L (12.0-15.0) g/dL Hct 28.8 L (37.2-46.3) % MCH 26.0 L (27.0-32.0) pg RDW 15.3 H (11.5-14.5) % Plt Count 445 H (140-440) X 10*3/uL Creatinine 0.45 L (0.52-1.04) mg/dL Calcium 7.9 L (8.4-10.2) mg/dL Microbiology - Last 24 Hours (Table) 10/18/20 16:19 Gram Stain - Preliminary Thigh - Left Wound Culture - Preliminary 10/18/20 16:19 Anaerobic Culture - Preliminary Thigh - Left 10/15/20 22:13 Blood Culture - Preliminary Blood No Growth after 72 hours 10/15/20 22:13 Blood Culture - Preliminary Blood No Growth after 72 hours 10/15/20 22:13 Gram Stain - Final Thigh - Left Wound Culture - Final
--- NOTE | 2020-10-19 12:13 | P.DS ---
Providers Date of admission: 10/15/20 23:26 Expected date of discharge: 10/19/20 Attending physician: Aminah Stahl MD Consults: 10/16/20 14:04 Consult Physician Routine Consulting Provider: Shahbaz Cm Consult Reason/Comments: Cellulitis with abscess formation Do you want consulting provider notified?: Yes Consult Physician Routine Consulting Provider: Gerald Lynch Consult Reason/Comments: Cellulitis with abscess formation Do you want consulting provider notified?: Yes Primary care physician: Augustine Chairez Hospital Course: Patient left the hospital AGAINST MEDICAL ADVICE. After she was found to have heroin in her room with concerns about her injecting IV heroin while in the hospital she was confronted by nursing staff and requested to render her drugs and at that time patient decided to leave the hospital AMA. For further details about this hospitalization please refer to my progress note dated today. Patient Condition at Discharge: Stable Plan - Discharge Summary New Discharge Prescriptions: No Action No Known Home Medications Discharge Medication List No Known Home Medications 06/30/20 [History] Follow up Appointment(s)/Referral(s): Augustine Chairez DO [Primary Care Provider] - 1-2 days
--- NOTE | 2020-10-19 12:13 | P.PN ---
Subjective Progress Note Date: 10/19/20 Patient was seen and evaluated this morning. She underwent I&D of her left thigh abscess yesterday and currently the wound is packed and covered with clean dressing. Patient is still complaining of pain on and requesting more IV morphine Objective - Vital Signs Vital signs: Vital Signs Temp 98.0 F 10/19/20 06:42 Pulse 60 10/19/20 01:36 Resp 15 10/19/20 06:42 BP 115/52 10/19/20 06:42 Pulse Ox 96 10/19/20 08:10 Intake & Output 10/18/20 10/19/20 10/19/20 18:59 06:59 18:59 Intake Total 1100 Output Total 5 Balance 1095 Intake: IV 1100 Output: Estimated Blood Loss 5 Other: Voiding Method Toilet Bedpan # Voids 3 1 - Exam General: The patient is awake and alert, in no distress Eye: there is normal conjunctiva bilaterally. Neck: The neck is supple, there is no JVD. Cardiovascular: Normal S1-S2, no S3-S4, no murmurs. Respiratory: Lungs clear to auscultation bilaterally Gastrointestinal: Abdomen is soft, nontender Musculoskeletal: There is no pedal edema. Neurological:. Speech is normal. Skin: Skin is warm and dry - Labs CBC & Chem 7: 10/19/20 06:24 10/19/20 06:24 Labs: Abnormal Lab Results - Last 24 Hours (Table) 10/19/20 10/19/20 Range/Units 06:24 06:24 RBC 3.58 L (4.10-5.20) X 10*6/uL Hgb 9.3 L (12.0-15.0) g/dL Hct 28.8 L (37.2-46.3) % MCH 26.0 L (27.0-32.0) pg RDW 15.3 H (11.5-14.5) % Plt Count 445 H (140-440) X 10*3/uL Creatinine 0.45 L (0.52-1.04) mg/dL Calcium 7.9 L (8.4-10.2) mg/dL Microbiology - Last 24 Hours (Table) 10/18/20 16:19 Gram Stain - Preliminary Thigh - Left Wound Culture - Preliminary 10/18/20 16:19 Anaerobic Culture - Preliminary Thigh - Left 10/15/20 22:13 Blood Culture - Preliminary Blood No Growth after 72 hours 10/15/20 22:13 Blood Culture - Preliminary Blood No Growth after 72 hours 10/15/20 22:13 Gram Stain - Final Thigh - Left Wound Culture - Final Assessment and Plan Assessment: 40 year old female with IV drug abuse, hep C, frequent hospitalization for skin abscesses, she reports a history of endocarditis sepsis with cellulitis and abscess over the left thigh hyponatremia microcytosis without anemia IV drug abuse with heroin h/o hep c moderate protein calorie malnutrition plan Seen and evaluated by general surgery, status post I&D with wound packing in the OR blood culture negative to date empiric antibiotics managed by infectious disease tylenol for fever pain control with morphine and toradol PPI for GI prophylaxis lactic acid unremarkable DVT PPx heparin sc tid full code anticipated discharge , pending clinical course
[2020-10-19 13:19] LABS: Basophils # (A) 0.04 X 10*3/uL (0.00-0.10); Basophils % (A) 0.4 %; Eosinophils # (A) 0.02 X 10*3/uL (0.04-0.35); Eosinophils % (A) 0.2 %; Lymphocytes # (A) 2.23 X 10*3/uL (0.90-5.00); Lymphocytes % (A) 23.1 %; Monocytes # (A) 1.19 X 10*3/uL (0.20-1.00); Monocytes % (A) 12.3 %; Neutrophils # (A) 5.89 X 10*3/uL (1.80-7.70)
== END 2020-10-19 12:00 | disposition left against medical advice (07) | DRG 871 ==
LOC: EC 20:54 → 4SSUR 23:26
PROVIDERS: ADMIT Internal Medicine; ATTEND Internal Medicine
PROC: 0J9M3ZZ Drainage of Left Upper Leg Subcutaneous Tissue and Fascia, Percutaneous Approach (ICD-10-PCS; principal; 2020-10-18 14:15)
DX: A41.9 Sepsis, unspecified organism (principal); A48.0 Gas gangrene; E87.1 Hypo-osmolality and hyponatremia; L02.413 Cutaneous abscess of right upper limb; E44.0 Moderate protein-calorie malnutrition; L02.416 Cutaneous abscess of left lower limb; L03.90 Cellulitis, unspecified; R64 Cachexia; E87.6 Hypokalemia; F11.10 Opioid abuse, uncomplicated; K21.9 Gastro-esophageal reflux disease without esophagitis; F19.90 Other psychoactive substance use, unspecified, uncomplicated; F17.200 Nicotine dependence, unspecified, uncomplicated; F31.9 Bipolar disorder, unspecified; F43.10 Post-traumatic stress disorder, unspecified; G40.909 Epilepsy, unspecified, not intractable, without status epilepticus; J45.909 Unspecified asthma, uncomplicated; Z86.79 Personal history of other diseases of the circulatory system; Z90.710 Acquired absence of both cervix and uterus; B19.20 Unspecified viral hepatitis C without hepatic coma
CPT/HCPCS: 36415; 71046; 74177; 80048; 80053; 80202; 80306; 81001; 82550; 82565; 83605; 83690; 83735; 85025; 85652; 86140; 87040; 87070; 87075; 87205; 94760; 96365; 96366; 96368; 96375; 99285

== ENCOUNTER 2021-06-05 16:53 | Emergency (ER) | payer OTHER ==
--- NOTE | 2021-06-05 18:21 | ED ---
General Adult HPI - General Source: patient Mode of arrival: ambulatory Limitations: no limitations <Pablo Allen - Last Filed: 06/05/21 18:20> <Lorena Dhillon - Last Filed: 06/06/21 01:54> - General Chief complaint: Psychiatric Symptoms Stated complaint: Mental Health Time Seen by Provider: 06/05/21 17:49 - History of Present Illness Initial comments: Dictation was produced using [employer] dictation software. please excuse any grammatical, word or spelling errors. Chief Complaint: 40-year-old female presents to the emergency department for psychiatric evaluation History of Present Illness: Patient is a 40-year-old female presents to the emergency department for psychiatric evaluation. Over the last 48-72 hours she reports she feels as though she is having an out of body experience. States that she feels like she hears people calling her names or sees things that she knows is not there. She does not feel paranoia. Denies any suicidal or homicidal ideation. She states she has no new medical complaints today. She just completed rehab for opiate addiction however has had several recent relapses. The ROS documented in this emergency department record has been reviewed and confirmed by me. Those systems with pertinent positive or negative responses have been documented in the HPI. All other systems are other negative and/or noncontributory. PHYSICAL EXAM: General Impression: Alert and oriented x3, not in acute distress HEENT: Normocephalic atraumatic, extra-ocular movements intact, pupils equal and reactive to light bilaterally, mucous membranes moist. Cardiovascular: Heart regular rate and rhythm Chest: Able to complete full sentences, no retractions, no tachypnea Abdomen: abdomen soft, non-tender, non-distended, no organomegaly Musculoskeletal: Pulses present and equal in all extremities, no peripheral edema Motor: no focal deficits noted Neurological: CN II-XII grossly intact, no focal motor or sensory deficits noted Skin: Intact with no visualized rashes Psych: Normal affect and mood ED course: 40-year-old female resents emergency department for psychiatric evaluation. She does not appear psychotic. She is not suicidal homicidal. She believes she has schizophrenia. Vital signs upon arrival are within acceptable limits. Patient medically cleared for EPS evaluation. (Pablo Allen) - Related Data Home Medications Medication Instructions Recorded Confirmed Buprenorphine HCl/Naloxone HCl 1 film SL TID 06/05/21 06/05/21 [Suboxone 4 mg-1 mg Sl Film] DULoxetine HCL [Cymbalta] 60 mg PO TID 06/05/21 06/05/21 Docusate [Colace] 100 mg PO DAILY PRN 06/05/21 06/05/21 Mirtazapine [Remeron Soluspan] 15 mg PO HS 06/05/21 06/05/21 Naloxone HCl [Narcan] 4 mg NASAL DAILY PRN 06/05/21 06/05/21 Nicotine 7Mg/24Hr Patch [Habitrol] 1 patch TRANSDERM DAILY PRN 06/05/21 06/05/21 QUEtiapine FUMARATE [SEROquel XR] 50 mg PO DAILY 06/05/21 06/05/21 QUEtiapine FUMARATE [SEROquel] 300 mg PO HS 06/05/21 06/05/21 Trihexyphenidyl [Artane] 2 mg PO HS 06/05/21 06/05/21 Allergies Allergy/AdvReac Type Severity Reaction Status Date / Time Iodinated Contrast Media Allergy Anaphylaxis Verified 06/05/21 20:11 Opioids - Morphine Analogues AdvReac Does not Verified 06/05/21 20:11 want Opioids-Meperidine and AdvReac Does not Verified 06/05/21 20:11 Related want Opioids-Methadone and Related AdvReac Does not Verified 06/05/21 20:11 want sulfamethoxazole AdvReac Diarrhea Verified 06/05/21 20:11 [From Bactrim] trimethoprim [From Bactrim] AdvReac Diarrhea Verified 06/05/21 20:11 Review of Systems ROS Other: All systems not noted in ROS Statement are negative. <Pablo Allen - Last Filed: 06/05/21 18:20> ROS Other: All systems not noted in ROS Statement are negative. <Lorena Dhillon - Last Filed: 06/06/21 01:54> ROS Statement: Those systems with pertinent positive or pertinent negative responses have been documented in the HPI. Past Medical History Past Medical History: Asthma, GERD/Reflux, Seizure Disorder History of Any Multi-Drug Resistant Organisms: None Reported Past Surgical History: Appendectomy, Cholecystectomy, Hysterectomy, Orthopedic Surgery Additional Past Surgical History / Comment(s): rt arm surgery Past Anesthesia/Blood Transfusion Reactions: No Reported Reaction Past Psychological History: Anxiety, Bipolar, PTSD Smoking Status: Current every day smoker Past Alcohol Use History: None Reported Past Drug Use History: Heroin, IV Drug Use, Marijuana - Past Family History family Family Medical History: No Reported History <Pablo Allen - Last Filed: 06/05/21 18:20> General Exam Limitations: no limitations <Pablo Allen - Last Filed: 06/05/21 18:20> Course Vital Signs 06/05/21 06/05/21 17:14 19:19 Temperature 99.1 F 98.5 F Pulse Rate 103 H 86 Respiratory 20 18 Rate Blood Pressure 101/57 110/60 O2 Sat by Pulse 98 97 Oximetry Medical Decision Making <Lorena Dhillon - Last Filed: 06/06/21 01:54> - Medical Decision Making Patient was seen and evaluated by the EPS nurse, at this time to determine the patient's outpatient therapy. (Lorena Dhillon) - Lab Data Lab Results 06/06/21 Range/Units 00:27 Urine Opiates Screen Not Detected (NotDetected) Ur Oxycodone Screen Not Detected (NotDetected) Urine Methadone Screen Not Detected (NotDetected) Ur Propoxyphene Screen Not Detected (NotDetected) Ur Barbiturates Screen Not Detected (NotDetected) U Tricyclic Antidepress Detected H (NotDetected) Ur Phencyclidine Scrn Not Detected (NotDetected) Ur Amphetamines Screen Detected H (NotDetected) U Methamphetamines Scrn Not Detected (NotDetected) U Benzodiazepines Scrn Not Detected (NotDetected) Urine Cocaine Screen Not Detected (NotDetected) U Marijuana (THC) Screen Not Detected (NotDetected) Disposition <Pablo Allen - Last Filed: 06/05/21 18:20> Is patient prescribed a controlled substance at d/c from ED?: No <Lorena Dhillon - Last Filed: 06/06/21 01:54> Clinical Impression: Depression Disposition: HOME SELF-CARE Condition: Stable Additional Instructions: Follow safety plan as discussed with EPS nurse Referrals: None,Stated [Primary Care Provider] - 1-2 days
[2021-06-05 19:20] VITALS: BP 110/60; PULSE 86; RESP 18; TEMP 98.5
[2021-06-05] MEDS ORDERED: NON FORMULARY DRUG (Buprenorphine Hcl/Naloxone Hcl [Suboxone 4 Mg-1 Mg Sl Film] 1 EACH Fil SUBLINGUAL SCH (22:00)
[2021-06-05] MEDS ORDERED: ALPRAZolam 0.5 MG TAB PO STA (22:35)
[2021-06-06] MEDS ORDERED: NICOTINE 21MG/24HR PATCH TRANSDERM STA (00:26)
[2021-06-06 01:09] LABS: Amphetamine Screen,Urine Detected (NotDetected); Barbiturate Screen,Urine Not Detected (NotDetected); Benzodiazepines Screen,Urine Not Detected (NotDetected); Cocaine Screen,Urine Not Detected (NotDetected); Methadone Screen, Urine Not Detected (NotDetected); Opiate Screen,Urine Not Detected (NotDetected); Oxycodone Screen, Urine Not Detected (NotDetected); Phencyclidine Screen,Urine Not Detected (NotDetected); Tricyclic Antidepressant,Urine Detected (NotDetected); Urn Cannabinoid Scrn Not Detected (NotDetected)
== END 2021-06-06 02:15 | disposition home or self-care (01) ==
LOC: EC 16:53
DX: F32.A Depression, unspecified (principal); J45.909 Unspecified asthma, uncomplicated; F17.200 Nicotine dependence, unspecified, uncomplicated; Z91.041 Radiographic dye allergy status; Z88.8 Allergy status to other drugs, medicaments and biological substances; Z88.2 Allergy status to sulfonamides
CPT/HCPCS: 80306; 82075; 99284

== ENCOUNTER 2021-06-28 01:36 | Inpatient (IN) | payer MEDICAID, OTHER ==
[2021-06-28 03:05] LABS: Amphetamine Screen,Urine Not Detected (NotDetected); Barbiturate Screen,Urine Not Detected (NotDetected); Benzodiazepines Screen,Urine Detected (NotDetected); Cocaine Screen,Urine Not Detected (NotDetected); Methadone Screen, Urine Not Detected (NotDetected); Opiate Screen,Urine Detected (NotDetected); Oxycodone Screen, Urine Not Detected (NotDetected); Phencyclidine Screen,Urine Not Detected (NotDetected); Tricyclic Antidepressant,Urine Not Detected (NotDetected); Urn Cannabinoid Scrn Detected (NotDetected)
--- NOTE | 2021-06-28 05:49 | ED ---
Psych HPI - General Chief Complaint: Overdose Stated Complaint: Fatigue Time Seen by Provider: 06/28/21 04:55 Source: patient, RN notes reviewed, old records reviewed Mode of arrival: ambulatory Limitations: no limitations - History of Present Illness Initial Comments: This is a 40-year-old female to the emergency department for evaluation severe depression. Patient has recent heroin overdose overdose containing opiates. Requiring Narcan. Patient very depressed here in the ER suicidal no ectopy speak with psychiatry, currently does not have a safe place to go MD Complaint: suicidal ideation, feels depressed -: unknown Associated Psychiatric Symptoms: depression, suicidal ideation, racing thoughts History of same: Yes Quality: getting worse Improves With: none Worsens With: drug use Context: significant life stressor Associated Symptoms: denies other symptoms Treatments Prior to Arrival: placed on mental health hold If Self Harm: admits thoughts of self harm - Related Data Home Medications Medication Instructions Recorded Confirmed Buprenorphine HCl/Naloxone HCl 1 film SL TID 06/05/21 06/28/21 [Suboxone 4 mg-1 mg Sl Film] DULoxetine HCL [Cymbalta] 60 mg PO TID 06/05/21 06/28/21 Docusate [Colace] 100 mg PO DAILY PRN 06/05/21 06/28/21 Mirtazapine [Remeron Soluspan] 15 mg PO HS 06/05/21 06/28/21 Naloxone HCl [Narcan] 4 mg NASAL DAILY PRN 06/05/21 06/28/21 QUEtiapine FUMARATE [SEROquel XR] 50 mg PO DAILY 06/05/21 06/28/21 QUEtiapine FUMARATE [SEROquel] 300 mg PO HS 06/05/21 06/28/21 Trihexyphenidyl [Artane] 2 mg PO HS 06/05/21 06/28/21 Allergies Allergy/AdvReac Type Severity Reaction Status Date / Time Iodinated Contrast Media Allergy Anaphylaxis Verified 06/28/21 09:10 Opioids - Morphine Analogues AdvReac Does not Verified 06/28/21 09:10 want Opioids-Meperidine and AdvReac Does not Verified 06/28/21 09:10 Related want Opioids-Methadone and Related AdvReac Does not Verified 06/28/21 09:10 want sulfamethoxazole AdvReac Diarrhea Verified 06/28/21 09:10 [From Bactrim] trimethoprim [From Bactrim] AdvReac Diarrhea Verified 06/28/21 09:10 Review of Systems ROS Statement: Those systems with pertinent positive or pertinent negative responses have been documented in the HPI. ROS Other: All systems not noted in ROS Statement are negative. Past Medical History Past Medical History: Asthma, GERD/Reflux, Seizure Disorder History of Any Multi-Drug Resistant Organisms: None Reported Past Surgical History: Appendectomy, Cholecystectomy, Hysterectomy, Orthopedic Surgery Additional Past Surgical History / Comment(s): rt arm surgery Past Anesthesia/Blood Transfusion Reactions: No Reported Reaction Past Psychological History: Anxiety, Bipolar, PTSD Smoking Status: Current every day smoker Past Alcohol Use History: None Reported Past Drug Use History: Heroin, IV Drug Use, Marijuana - Past Family History family Family Medical History: No Reported History General Exam Limitations: no limitations General appearance: alert, in no apparent distress, anxious Head exam: Present: atraumatic, normocephalic, normal inspection Eye exam: Present: normal appearance, PERRL, EOMI. Absent: scleral icterus, conjunctival injection, periorbital swelling ENT exam: Present: normal exam, mucous membranes moist Neck exam: Present: normal inspection. Absent: tenderness, meningismus, lymphadenopathy Respiratory exam: Present: normal lung sounds bilaterally. Absent: respiratory distress, wheezes, rales, rhonchi, stridor Cardiovascular Exam: Present: regular rate, normal rhythm, normal heart sounds. Absent: systolic murmur, diastolic murmur, rubs, gallop, clicks GI/Abdominal exam: Present: soft, normal bowel sounds. Absent: distended, tenderness, guarding, rebound, rigid Extremities exam: Present: normal inspection, full ROM, normal capillary refill. Absent: tenderness, pedal edema, joint swelling, calf tenderness Back exam: Present: normal inspection Neurological exam: Present: alert, oriented X3, CN II-XII intact Psychiatric exam: Present: normal affect, normal mood Skin exam: Present: warm, dry, intact, normal color. Absent: rash Course Vital Signs 06/28/21 06/28/21 06/28/21 01:37 08:00 11:58 Temperature 97.9 F 98.0 F 98.3 F Pulse Rate 108 H 74 Respiratory 22 16 16 Rate Blood Pressure 114/68 118/74 O2 Sat by Pulse 97 96 94 L Oximetry - Reevaluation(s) Reevaluation #1: 06/28/21 06:19 Medical records reviewed Reevaluation #2: 06/28/21 06:19 Medical clear for psychiatric Patient continues to get worse despite therapy, patient be admitted for opiate overdose Medical Decision Making - Medical Decision Making 40 female with severe overdose, unintentional patient does have history of drug abuse patient has no vesicular very depressed will be seen and evaluated by psychiatry and patient will be admitted for psychiatric evaluation and treatment - Lab Data Result diagrams: 06/29/21 10:15 06/29/21 10:15 Lab Results 06/28/21 06/28/21 Range/Units 02:26 11:07 Urine Opiates Screen Detected H (NotDetected) Ur Oxycodone Screen Not Detected (NotDetected) Urine Methadone Screen Not Detected (NotDetected) Ur Propoxyphene Screen Not Detected (NotDetected) Ur Barbiturates Screen Not Detected (NotDetected) U Tricyclic Antidepress Not Detected (NotDetected) Ur Phencyclidine Scrn Not Detected (NotDetected) Ur Amphetamines Screen Not Detected (NotDetected) U Methamphetamines Scrn Not Detected (NotDetected) U Benzodiazepines Scrn Detected H (NotDetected) Urine Cocaine Screen Not Detected (NotDetected) U Marijuana (THC) Screen Detected H (NotDetected) Coronavirus (PCR) Not Detected (Not Detectd) Disposition Clinical Impression: Depression, Drug overdose, Poisoning by opiates and related narcotics, other Disposition: TRANSFER TO PSYCH HOSP/UNIT Condition: Fair Is patient prescribed a controlled substance at d/c from ED?: No
[2021-06-28] MEDS ORDERED: LORazepam 1 MG TAB PO STA (11:08)
[2021-06-28] MEDS ORDERED: ACETAMINOPHEN TAB 325 MG TAB PO PRN (11:58)
[2021-06-28] MEDS ORDERED: HALOPERIDOL LACTATE 5 MG/ML 1 ML VIAL IM PRN (11:58)
[2021-06-28] MEDS ORDERED: MAG HYDROX/AL HYDROX/SIMETH 30 ML CUP PO PRN (11:58)
[2021-06-28] MEDS ORDERED: MAGNESIUM HYDROXIDE 2,400 MG/10 ML CUP PO PRN (11:58)
[2021-06-28] MEDS ORDERED: LORazepam 2 MG/ML INJ IM PRN (12:01)
[2021-06-28] MEDS: LORazepam 1 MG TAB PO PRN ×2 (13:37→20:13)
[2021-06-28] MEDS ORDERED: traZODone HCL 100 MG TAB PO PRN (15:53)
--- NOTE | 2021-06-28 17:42 | P.HPMEDMHU ---
History of Present Illness H&P Date: 06/28/21 Chief Complaint: Suicide idealization and depression Patient is a 40-year-old male with a past medical history of IV drug abuse, frequent admissions for abscesses, history of endocarditis who presents to the ED with severe depression and suicide idealization. Patient currently is somnolent. She denies any complaints. She states that she was only taking Ativan prior to coming in. She denies taking any other medications. She currently denies any abscesses on her body. Review of Systems 10 ROS reviewed and are negative except as noted in HPI Past Medical History Past Medical History: Asthma, GERD/Reflux, Seizure Disorder History of Any Multi-Drug Resistant Organisms: None Reported Past Surgical History: Appendectomy, Cholecystectomy, Hysterectomy, Orthopedic Surgery Additional Past Surgical History / Comment(s): rt arm surgery. left anterior thigh scarring from having MRSA & Staph one year ago. Past Anesthesia/Blood Transfusion Reactions: No Reported Reaction Smoking Status: Current every day smoker - Past Family History family Family Medical History: No Reported History Medications and Allergies Home Medications Medication Instructions Recorded Confirmed Type Buprenorphine HCl/Naloxone HCl 1 film SL TID 06/05/21 06/28/21 History [Suboxone 4 mg-1 mg Sl Film] DULoxetine HCL [Cymbalta] 60 mg PO TID 06/05/21 06/28/21 History Docusate [Colace] 100 mg PO DAILY PRN 06/05/21 06/28/21 History Mirtazapine [Remeron Soluspan] 15 mg PO HS 06/05/21 06/28/21 History Naloxone HCl [Narcan] 4 mg NASAL DAILY PRN 06/05/21 06/28/21 History QUEtiapine FUMARATE [SEROquel XR] 50 mg PO DAILY 06/05/21 06/28/21 History QUEtiapine FUMARATE [SEROquel] 300 mg PO HS 06/05/21 06/28/21 History Trihexyphenidyl [Artane] 2 mg PO HS 06/05/21 06/28/21 History Allergies Allergy/AdvReac Type Severity Reaction Status Date / Time Iodinated Contrast Media Allergy Anaphylaxis Verified 06/28/21 09:10 Opioids - Morphine Analogues AdvReac Does not Verified 06/28/21 09:10 want Opioids-Meperidine and AdvReac Does not Verified 06/28/21 09:10 Related want Opioids-Methadone and Related AdvReac Does not Verified 06/28/21 09:10 want sulfamethoxazole AdvReac Diarrhea Verified 06/28/21 09:10 [From Bactrim] trimethoprim [From Bactrim] AdvReac Diarrhea Verified 06/28/21 09:10 Physical Exam Osteopathic Statement: *. No significant issues noted on an osteopathic structural exam other than those noted in the History and Physical/Consult. Vitals: Vital Signs Temp Pulse Resp BP Pulse Ox 06/28/21 11:58 98.3 F 16 94 L 06/28/21 08:00 98.0 F 74 16 118/74 96 06/28/21 01:37 97.9 F 108 H 22 114/68 97 Intake and Output 06/28/21 06/28/21 06/28/21 06:59 14:59 22:59 Other: Weight 61.235 kg 61.235 kg General: [Alert and oriented, well nourished, no acute distress]. Eye: [PERRL, EOMI, normal conjunctiva]. HENT: [Normocephalic, clear tympanic membranes, normal hearing, moist oral mucos a, no scleral icterus, no sinus tenderness]. Neck: [Supple, non-tender, no carotid bruits, no JVD, no lymphadenopathy]. Lungs: [Clear to auscultation and percussion, non-labored respiration]. Heart: [Normal rate, regular rhythm, no murmur, gallop or edema]. Abdomen: [Soft, non-tender, non-distended, normal bowel sounds, no masses]. Musculoskeletal: [Normal range of motion and strength, no tenderness or swelling]. Skin: [Skin is warm, dry and pink, no rashes or lesions]. Neurologic: [Awake, alert, and oriented X3, CN II-XII intact]. Psychiatric: [Cooperative, flat affect, somnolent Cranial Nerve Examination - Cranial Nerves Cranial Nerve II- Optic: Intact Cranial Nerve III- Oculomotor: Intact Cranial Nerve IV- Trochlear: Intact Cranial Nerve V- Trigeminal: Intact Cranial Nerve - Abducens: Intact Cranial Nerve VII- Facial: Intact Cranial Nerve VIII- Auditory: Intact Cranial Nerve IX- Glossopharyngeal: Intact Cranial Nerve X- Vagus: Intact Cranial Nerve XI- Accessory: Intact Cranial Nerve XII- Hypoglossal: Intact Results Labs: Abnormal Lab Results - Last 24 Hours (Table) 06/28/21 Range/Units 02:26 Urine Opiates Screen Detected H (NotDetected) U Benzodiazepines Scrn Detected H (NotDetected) U Marijuana (THC) Screen Detected H (NotDetected) Thrombosis Risk Factor Assmnt - Choose All That Apply Any of the Below Risk Factors Present?: No Other Risk Factors: No Other congenital or acquired thrombophilia - If yes, enter type in comment: No Thrombosis Risk Factor Assessment Level: Very Low Risk Assessment and Plan Assessment: Depression and suicidal disease -Your psych management IV drug abuse -Patient has history of heroin -Monitor patient for withdrawal History of frequent abscesses -Currently patient denying any abscesses History of endocarditis -Stable Please do not hesitate to call us with any questions
[2021-06-29] MEDS: NICOTINE 14MG/24HR PATCH TRANSDERM SCH (09:15)
[2021-06-29] MEDS: LORazepam 1 MG TAB PO PRN ×2 (09:16→18:43)
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
[2021-06-29 11:06] LABS: Basophils % (A) 1 %; Eosinophils # (A) 0.1 k/uL (0-0.7); Eosinophils % (A) 2 %; HCT 43.4 % (34.0-46.0); Lymphocytes # (A) 1.5 k/uL (1.0-4.8); Lymphocytes % (A) 27 %; MCH 27.9 pg (25.0-35.0); MCHC 32.3 g/dL (31.0-37.0); MCV 86.6 fL (80.0-100.0); Mean Platelet Volume 7.2; Monocytes # (A) 0.3 k/uL (0-1.0); Monocytes % (A) 5 %; Neutrophils # (A) 3.5 k/uL (1.3-7.7); Neutrophils % (A) 63 %; Platelet Count 326 k/uL (150-450); RBC 5.02 m/uL (3.80-5.40); RDW 13.3 % (11.5-15.5); WBC 5.6 k/uL (3.8-10.6)
[2021-06-29 11:29] LABS: ALT 88 U/L (4-34); AST 45 U/L (14-36); African American GFR (CKD) >90 (>60 ml/min/1.73 sqM); Albumin 4.3 g/dL (3.5-5.0); Alkaline Phosphatase 95 U/L (38-126); Anion Gap 6 mmol/L; Blood Urea Nitrogen 13 mg/dL (7-17); Calcium 9.3 mg/dL (8.4-10.2); Carbon Dioxide 29 mmol/L (22-30); Chloride 105 mmol/L (98-107); Glucose 108 mg/dL (74-99); Non-African American GFR(CKD) >90 (>60 ml/min/1.73 sqM); Potassium 4.2 mmol/L (3.5-5.1); Sodium 140 mmol/L (137-145); Total Bilirubin 0.3 mg/dL (0.2-1.3); Total Protein 6.9 g/dL (6.3-8.2)
[2021-06-29] MEDS: METHADONE 10 MG TAB PO SCH (12:16)
[2021-06-29 17:01] LABS: Chol/HDL Ratio 4.42 Ratio; LDL Cholesterol,Calculated 78.2 mg/dL (0.0-131.0)
[2021-06-29] MEDS: MIRTAZAPINE 15 MG TAB PO SCH (20:51)
[2021-06-29] MEDS: haloperidoL 5 MG TAB PO PRN (20:51)
[2021-06-29] MEDS: DULoxetine HCL 20 MG CAPSULE.DR PO SCH (20:51)
[2021-06-29] MEDS ORDERED: QUEtiapine 100 MG TAB PO SCH (21:00)
[2021-06-29 23:13] LABS: T4, Free (Free Thyroxine) 1.17 ng/dL (0.78-2.19)
[2021-06-30 07:08] VITALS: RESP 16
[2021-06-30] MEDS: METHADONE 5 MG TAB PO SCH (08:59)
[2021-06-30] MEDS: NICOTINE 14MG/24HR PATCH TRANSDERM SCH (08:59)
[2021-06-30] MEDS: DULoxetine HCL 20 MG CAPSULE.DR PO SCH ×2 (09:00→20:49)
[2021-06-30] MEDS: METHADONE 10 MG TAB PO SCH (10:37)
[2021-06-30] MEDS: LORazepam 1 MG TAB PO PRN (14:52)
[2021-06-30] MEDS: haloperidoL 5 MG TAB PO PRN (14:52)
--- NOTE | 2021-06-30 15:53 | P.PN ---
Progress Note - Text Progress Note Date: 06/30/21 Clinical Problems: Major depressive disorder severe without psychotic features, rule out opiate induced mood disorder, opiate use disorder severe, lack of stable housing, legal problems, financial problems Interim history: I reviewed the medical record and interviewed the patient. She described marked relief of opiate withdrawal symptoms with a 10 mg dose of methadone but complained of worsening systems with opiate cravings on the 5 mg dose. She requested to continue with the 10 mg dose for monitor of my position that I would only prescribed methadone briefly for management of withdrawal symptoms. I agreed to provide one more day of the 5 mg dose. She would like to enter a methadone treatment program because she was selling or "giving away" her supply of buprenorphine. I explained we could refer her to the methadone program in [facility] but the methadone program would not address her other social issues. She requests to speak but social studies teacher about another residential treatment program other than [facility] (" I was kicked out of [facility].") She complains of continued feelings depression and anxiety. She alleged she was "afraid" to take the 300 mg dose of Seroquel last night because she had not taken the medication "in a while." She agreed to a trial of Cogentin for anxiety and to start a lower dose of Seroquel. She is posed no management problem and had no episodes of behavioral dyscontrol. Medical consult appreciated. Mental status exam: She presented as a casually groomed 40-year-old female who was overall hygiene and to meet her much to improve from yesterday. She made eye contact and attended to the interview. She had a depressed facial expression. She showed psychomotor retardation but no abnormal involuntary movements. Her speech was spontaneous and consistent with her affect her affect was depressed but reactive. She denied suicidal ideation and wishes. She expressed feelings of hopelessness and helplessness with regard to her multiple problems including her chronic substance use. She did not express ideas reference, paranoid ideation or delusions. Her thinking was concrete but her associations were coherent, logical and goal directed. She denied hallucinations did not appear to responding to internal stimuli. Assessment: Acute opiate withdrawal symptoms have abated. She continues to have signs and symptoms of depression. She has multiple social issues. Plan: An inpatient treatment. Safety precautions. Continue methadone 5 mg by mouth for one more day. Decrease Seroquel to 100 mg at bedtime. Cogentin 0.5 mg twice a day for anxiety. Continue current dose of Cymbalta and mirtazapine. Discuss residentiall treatment programs with social studies teacher. Encouraged continued participation in therapeutic groups and activities. Evaluate clinical status response to treatment daily basis.
[2021-06-30] MEDS: BENZTROPINE MESYLATE 0.5 MG TAB PO SCH (20:48)
[2021-06-30] MEDS: MIRTAZAPINE 15 MG TAB PO SCH (20:49)
[2021-06-30] MEDS ORDERED: QUEtiapine 100 MG TAB PO SCH (21:00)
[2021-07-01] MEDS: NICOTINE 14MG/24HR PATCH TRANSDERM SCH (08:34)
[2021-07-01] MEDS: DULoxetine HCL 20 MG CAPSULE.DR PO SCH ×2 (08:34→20:31)
[2021-07-01] MEDS: METHADONE 5 MG TAB PO SCH (08:35)
[2021-07-01] MEDS: BENZTROPINE MESYLATE 0.5 MG TAB PO SCH ×2 (08:36→20:30)
--- NOTE | 2021-07-01 14:46 | P.PN ---
Progress Note - Text Progress Note Date: 07/01/21 Clinical Problems: Major depressive disorder severe without psychotic features, rule out opiate induced mood disorder, opiate use disorder severe, lack of stable housing, legal problems, financial problems Interim history: I reviewed the medical record, interviewed the patient and discussed the treatment and treatment plan with the treatment team. She spoke with [facility] today and requested readmission to [facility]. She would like to enter the methadone program at [facility] while she is in their residential rehabilitation program. She received 5 mg of Haldol last night. She stated she woke up after having visited dreams and nightmares. She requested the Haldol because she felt "too frightened" to go back to sleep. She requested to continue Haldol instead of the Seroquel because she achieved a more restful sleep after taking the Haldol. We discussed indications and an adverse effects including the risk of TD. We agreed to continue medication temporarily until she enters rehab. She is describing mild to moderate symptoms of opiate withdrawal and expressed concerns about worsening withdrawal symptoms once for discontinue the methadone. Mental status exam: She was neatly groomed and overall hygiene is much improved from admission. She made eye contact when he was able to attend and concentrate on interview. She continued to have depressed affect. She had slight psychomotor slowing but no abnormal movements. Speech was spontaneous and consistent with her affect. Her affect was depressed but remains reactive. She denies suicidal ideation and wishes. She continues to express hopelessness and helplessness regarding her substance abuse problems. She did not express ideas of reference, paranoid ideation or delusions. Her thinking was concrete. Associations were coherent, logical and goal directed. Assessment: Overall of her clinical depression is improved from admission opiate withdrawal symptoms have lessened and she appears less distressed and depressed. However she has multiple medical problems and is at high risk for relapse outside of a residential program. Plan: Continue inpatient treatment. Safety precautions. Discontinue methadone 5 mg daily. Discontinue Seroquel. Haldol 5 mg at bedtime. Cogentin 0.5 mg twice a day. Continue current dose of Cymbalta and mirtazapine. Discharge is [facility] once she is accepted to the program. Encouraged continued participation in therapeutic groups and activities. Evaluate clinical status response to treatment daily basis.
[2021-07-01] MEDS: LORazepam 1 MG TAB PO PRN (14:56)
[2021-07-01] MEDS: haloperidoL 5 MG TAB PO PRN (14:56)
[2021-07-01] MEDS: MIRTAZAPINE 15 MG TAB PO SCH (20:30)
[2021-07-01] MEDS: haloperidoL 5 MG TAB PO SCH (20:30)
[2021-07-02] MEDS: LORazepam 1 MG TAB PO PRN ×3 (01:27→15:50)
[2021-07-02 07:19] VITALS: PULSE 75
[2021-07-02] MEDS: NICOTINE 14MG/24HR PATCH TRANSDERM SCH (08:27)
[2021-07-02] MEDS: BENZTROPINE MESYLATE 0.5 MG TAB PO SCH ×2 (08:28→20:03)
[2021-07-02] MEDS: DULoxetine HCL 20 MG CAPSULE.DR PO SCH ×2 (08:28→20:02)
--- NOTE | 2021-07-02 13:21 | P.PN ---
Progress Note - Text Progress Note Date: 07/02/21 Clinical Problems: Major depressive disorder severe without psychotic features, rule out opiate induced mood disorder, opiate use disorder severe, lack of stable housing, legal problems, financial problems Interim history: I reviewed the medical record, interviewed the patient and discussed the treatment and treatment plan with the treatment team. She complained dysphoric mood, anxiety and insomnia but denied other symptoms of acute withdrawal symptoms including abdominal cramping, nausea, vomiting, muscle aches and diarrhea. We are waiting the decision from [facility] regarding her request for residential substance abuse treatment. She approached social worker clinical this morning about entering [facility]'s methadone clinic. She alleged that if she enters the methadone program then she could live with her sister. She intermittently attends therapeutic groups and activities. She slept 6 hours last night. Mental status exam: She was neatly groomed 40-year-old female. She made eye contact when he was able to attend and concentrate on interview. She jimenes a depressed affect. She had slight psychomotor slowing but no abnormal movements. Speech was spontaneous and consistent with her affect. Her affect was depressed but remains reactive. She denies suicidal ideation and wishes. She continues to express hopelessness and helplessness regarding her substance abuse problems. She did not express ideas of reference, paranoid ideation or delusions. Her thinking was concrete. Associations were coherent, logical and goal directed. Assessment: Overall of her clinical depression is improved from admission. Her opiate withdrawal symptoms have lessened and she appears less distressed and depressed. We are waiting placement in a residential substance abuse treatment program and/or admission to a methadone clinic. Plan: Continue inpatient treatment. Safety precautions. Continue Haldol 5 mg at bedtime. Cogentin 0.5 mg twice a day. Continue current dose of Cymbalta and mirtazapine. Discharge to [facility] once she is accepted to the program. E ncouraged continued participation in therapeutic groups and activities. Evaluate clinical status response to treatment daily basis.
[2021-07-02] MEDS: haloperidoL 5 MG TAB PO PRN (15:50)
[2021-07-02] MEDS: haloperidoL 5 MG TAB PO SCH (20:02)
[2021-07-02] MEDS: MIRTAZAPINE 15 MG TAB PO SCH (20:03)
[2021-07-02] MEDS ORDERED: diphenhydrAMINE 50 MG CAP PO STA (22:35)
[2021-07-03 06:57] VITALS: BP 106/62; TEMP 97.3
[2021-07-03] MEDS: NICOTINE 14MG/24HR PATCH TRANSDERM SCH (08:59)
[2021-07-03] MEDS: DULoxetine HCL 20 MG CAPSULE.DR PO SCH (08:59)
[2021-07-03] MEDS: BENZTROPINE MESYLATE 0.5 MG TAB PO SCH (09:00)
[2021-07-03] MEDS: LORazepam 1 MG TAB PO PRN (09:01)
== END 2021-07-03 10:46 | DRG 885 ==
LOC: EC 01:36 → 3MHU 11:56
PROVIDERS: ADMIT Psychiatry & Neurology Psychiatry; ATTEND Psychiatry & Neurology Psychiatry
DX: F32.2 Major depressive disorder, single episode, severe without psychotic features (principal); F11.23 Opioid dependence with withdrawal; T40.602A Poisoning by unspecified narcotics, intentional self-harm, initial encounter; T40.1X1A Poisoning by heroin, accidental (unintentional), initial encounter; Z20.822 Contact with and (suspected) exposure to COVID-19; F43.10 Post-traumatic stress disorder, unspecified; J45.909 Unspecified asthma, uncomplicated; K21.9 Gastro-esophageal reflux disease without esophagitis; F17.210 Nicotine dependence, cigarettes, uncomplicated; Z71.6 Tobacco abuse counseling; Z79.899 Other long term (current) drug therapy; Z86.69 Personal history of other diseases of the nervous system and sense organs; Z90.49 Acquired absence of other specified parts of digestive tract; Z87.19 Personal history of other diseases of the digestive system; Z90.710 Acquired absence of both cervix and uterus; Z87.42 Personal history of other diseases of the female genital tract; Z87.39 Personal history of other diseases of the musculoskeletal system and connective tissue; Z56.0 Unemployment, unspecified; Z59.00 Homelessness unspecified; Z86.79 Personal history of other diseases of the circulatory system; Z86.19 Personal history of other infectious and parasitic diseases; Z65.3 Problems related to other legal circumstances; Z98.890 Other specified postprocedural states; Z88.2 Allergy status to sulfonamides; Z91.041 Radiographic dye allergy status
CPT/HCPCS: 80053; 80061; 80306; 82075; 83036; 84439; 84443; 84481; 85025; 87635; 99285

== ENCOUNTER 2021-08-06 12:21 | Emergency (ER) | payer OTHER ==
[2021-08-06 12:36] VITALS: PULSE 83; RESP 20; TEMP 97.7
[2021-08-06 12:37] VITALS: BP 121/61
--- NOTE | 2021-08-06 12:41 | ED ---
Female Urogenital HPI - General Source: patient, RN notes reviewed, old records reviewed Mode of arrival: ambulatory Limitations: no limitations - History of Present Illness MD Complaint: vaginal discharge, dysuria -: week(s) (2) Severity scale (1-10): 4 Quality: other (pressure) Patient : No (hysterectomy) Associated Symptoms: vaginal discharge <KoWesley - Last Filed: 08/06/21 12:36> - General Source: patient, RN notes reviewed Mode of arrival: ambulatory Limitations: no limitations - History of Present Illness MD Complaint: vaginal discharge, dysuria -: week(s) Patient : No <Berna Tucker - Last Filed: 08/06/21 19:32> - General Chief complaint: Urogenital Stated complaint: UTI Time Seen by Provider: 08/06/21 12:35 - History of Present Illness Initial comments: Well-appearing 40-year-old female presents alert and oriented 4 with complaints of 2 weeks of vaginal discharge yellow and foul smelling with dysuria. Is also requesting refills on her Haldol, Cogentin and Cymbalta. She states that for the past 3 days she's been taking half of her pills to try to make them last. She states her appointment with her primary care doctor is not until Thursday of next week. She is a half a pack a day smoker denies any drug use states 8 months clean. (Wesley Connell) Patient states that she has also been using [id number] AZO and drinking lots of cranberry juice and water for her symptoms, none of which have helped. She also states that she is concerned for possible STIs, she does have a history of Chlamydia and Trichomonas. Denies any fevers, chills, sore throat, cough, dyspnea, chest pain, palpitations, nausea, vomiting, diarrhea, back pain, or headaches. (Berna Sinha) - Related Data Previous Rx's Medication Instructions Recorded Benztropine Mesylate [Cogentin] 0.5 mg PO BID #60 tab 07/03/21 Buprenorphine HCl/Naloxone HCl 1 each SL DAILY #30 film 07/03/21 [Suboxone 8 mg-2 mg Sl Film] DULoxetine HCL [Cymbalta] 20 mg PO BID #60 cap 07/03/21 Mirtazapine 15 mg PO HS #15 tablet 07/03/21 haloperidoL [Haldol] 5 mg PO HS #30 tab 07/03/21 Benztropine Mesylate [Cogentin] 0.5 mg PO BID 15 Days #30 tablet 08/06/21 Cephalexin [Keflex] 500 mg PO Q12HR 7 Days #14 cap 08/06/21 DULoxetine HCL [Cymbalta] 60 mg PO TID 15 Days #45 cap 08/06/21 Doxycycline [Vibramycin] 100 mg PO BID 7 Days #14 capsule 08/06/21 haloperidoL [Haldol] 5 mg PO HS 15 Days #15 tablet 08/06/21 Allergies Allergy/AdvReac Type Severity Reaction Status Date / Time Iodinated Contrast Media Allergy Anaphylaxis Verified 08/06/21 12:36 Opioids - Morphine Analogues AdvReac Does not Verified 08/06/21 12:36 want Opioids-Meperidine and AdvReac Does not Verified 08/06/21 12:36 Related want Opioids-Methadone and Related AdvReac Does not Verified 08/06/21 12:36 want sulfamethoxazole AdvReac Diarrhea Verified 08/06/21 12:36 [From Bactrim] trimethoprim [From Bactrim] AdvReac Diarrhea Verified 08/06/21 12:36 Review of Systems ROS Other: All systems not noted in ROS Statement are negative. <Wesley Connell - Last Filed: 08/06/21 12:36> ROS Other: All systems not noted in ROS Statement are negative. <Berna Tucker - Last Filed: 08/06/21 19:32> ROS Statement: Those systems with pertinent positive or pertinent negative responses have been documented in the HPI. Past Medical History Past Medical History: Asthma, GERD/Reflux, Seizure Disorder History of Any Multi-Drug Resistant Organisms: None Reported Past Surgical History: Appendectomy, Cholecystectomy, Hysterectomy, Orthopedic Surgery Additional Past Surgical History / Comment(s): rt arm surgery Past Anesthesia/Blood Transfusion Reactions: No Reported Reaction Past Psychological History: Anxiety, Bipolar, PTSD Smoking Status: Current every day smoker Past Alcohol Use History: None Reported - Past Family History family Family Medical History: No Reported History <Wesley Connell - Last Filed: 08/06/21 12:36> General Exam Limitations: no limitations General appearance: alert, in no apparent distress Respiratory exam: Absent: respiratory distress, accessory muscle use Cardiovascular Exam: Present: regular rate Neurological exam: Present: alert, oriented X3, normal gait Psychiatric exam: Present: normal affect, normal mood <Wesley Connell - Last Filed: 08/06/21 12:36> General appearance: alert, in no apparent distress Head exam: Present: atraumatic, normocephalic, normal inspection Respiratory exam: Present: normal lung sounds bilaterally. Absent: respiratory distress, wheezes, rales, rhonchi, stridor Cardiovascular Exam: Present: regular rate, normal rhythm, normal heart sounds. Absent: systolic murmur, diastolic murmur, rubs, gallop, clicks GI/Abdominal exam: Present: soft, normal bowel sounds. Absent: distended, tenderness, guarding, rebound, rigid Neurological exam: Present: alert, oriented X3, CN II-XII intact Psychiatric exam: Present: normal affect, normal mood Skin exam: Present: warm, dry, intact, normal color. Absent: rash <Berna Tucker - Last Filed: 08/06/21 19:32> Course Vital Signs 08/06/21 12:30 Temperature 97.7 F Pulse Rate 83 Respiratory 20 Rate Blood Pressure 121/61 O2 Sat by Pulse 97 Oximetry Medical Decision Making <Berna Tucker - Last Filed: 08/06/21 19:32> - Medical Decision Making This is a 40-year-old female who presents to the emergency department for vaginal discharge and dysuria. Patient expresses concern for STIs as well. Testing for GC/Chlamydia ordered. Patient treated empirically with ceftriaxone, Flagyl, and doxycycline. Patient does have a history of Chlamydia and Trichomonas. Urinary tract infection also present on urinalysis. The patient requested to leave before the results of the urinalysis returned, and to be contacted with the results. I tried calling the patient, however her phone number is no longer in service. I did tell her that if she had a UTI, I would send antibiotics to her pharmacy. Keflex was prescribed accordingly. The patient also takes many psychotropic medications that she is currently out of. She requests temporary refills until she can see her prescribing physician next week. These are not controlled substances and they can both cause problematic effects if they are discontinued abruptly, and I am comfortable providing the patient a short-term refill. Cogentin, Haldol, and Cymbalta were refilled. Return precautions reviewed in depth, the patient is instructed to return to the emergency department with any new, worsening, or concerning symptoms. Patient verbalized understanding. This case was discussed in detail with the attending ED physician. Presentation, findings, and treatment plan discussed in detail as well. (Berna Tucker) - Lab Data Lab Results 08/06/21 08/06/21 Range/Units 14:51 14:51 Urine Color Yellow Urine Appearance Cloudy H (Clear) Urine pH 6.0 (5.0-8.0) Ur Specific [place] 1.019 (1.001-1.035) Urine Protein 1+ H (Negative) Urine Glucose (UA) Negative (Negative) Urine Ketones Negative (Negative) Urine Blood Moderate H (Negative) Urine Nitrite Positive H (Negative) Urine Bilirubin Negative (Negative) Urine Urobilinogen <2.0 (<2.0) mg/dL Ur Leukocyte Esterase Large H (Negative) Urine RBC 122 H (0-5) /hpf Urine WBC 139 H (0-5) /hpf Urine WBC Clumps Rare H (None) /hpf Ur Squamous Epith Cells <1 (0-4) /hpf Urine Bacteria Rare H (None) /hpf Urine Mucus Moderate H (None) /hpf Urine HCG, Qual Not Detected (Not Detectd) Disposition <Wesley Connell - Last Filed: 08/06/21 12:36> Is patient prescribed a controlled substance at d/c from ED?: No <Berna Tucker - Last Filed: 08/06/21 19:32> Clinical Impression: Vaginal discharge, Dysuria Disposition: HOME SELF-CARE Instructions (If sedation given, give patient instructions): Dysuria (ED), Vaginal Discharge (ED) Additional Instructions: Return to the emergency department with any new, worsening, or concerning symptoms. Your medications were sent to the pharmacy. You were also prescribed doxycycline for prophylactic treatment, take this as prescribed for 7 days. Follow-up with your primary care provider as scheduled next week. Prescriptions: Benztropine Mesylate [Cogentin] 0.5 mg PO BID 15 Days #30 tablet DULoxetine HCL [Cymbalta] 60 mg PO TID 15 Days #45 cap haloperidoL [Haldol] 5 mg PO HS 15 Days #15 tablet Cephalexin [Keflex] 500 mg PO Q12HR 7 Days #14 cap Doxycycline [Vibramycin] 100 mg PO BID 7 Days #14 capsule Referrals: None,Stated [Primary Care Provider] - 1-2 days
[2021-08-06] MEDS ORDERED: cefTRIAXone 1,000 MG VIAL (IM USE) IM STA (14:25)
[2021-08-06] MEDS ORDERED: metroNIDAZOLE 500 MG TAB PO STA (14:25)
[2021-08-06 15:25] LABS: Appearance,Urine Cloudy (Clear); Bacteria,Urine Rare /hpf; Bilirubin,Urine Negative (Negative); Blood,Urine Moderate (Negative); Color,Urine Yellow; Glucose,Urine (UA) Negative (Negative); Ketones,Urine Negative (Negative); Leukocyte Esterase,Urine Large (Negative); Mucus,Urine Moderate /hpf; Nitrite,Urine Positive (Negative); Protein,Urine 1+ (Negative); RBC,Urine 122 /hpf (0-5); Specific Gravity,Urine 1.019 (1.001-1.035); Squamous Epithelial Cell,Urine <1 /hpf (0-4); Urobilinogen,Urine <2.0 mg/dL (<2.0); WBC,Urine 139 /hpf (0-5)
[2021-08-07 14:33] LABS: C. trachomatis,PCR Negative (Neg,Equiv); Chlamydia trachomatis Source Urine; N. gonorrhoeae,PCR Negative (Neg,Equiv); Neisseria Source Urine
== END 2021-08-06 15:10 | disposition home or self-care (01) ==
LOC: EC 12:21
DX: N89.8 Other specified noninflammatory disorders of vagina (principal); R30.0 Dysuria; J45.909 Unspecified asthma, uncomplicated; K21.9 Gastro-esophageal reflux disease without esophagitis; G40.909 Epilepsy, unspecified, not intractable, without status epilepticus; F31.9 Bipolar disorder, unspecified; F41.9 Anxiety disorder, unspecified; F17.200 Nicotine dependence, unspecified, uncomplicated; Z79.899 Other long term (current) drug therapy
CPT/HCPCS: 81001; 81025; 87491; 87591; 87086; 99284; 96372; J0696

== ENCOUNTER 2021-08-18 12:00 | Emergency (ER) | payer OTHER ==
[2021-08-18] MEDS ORDERED: SODIUM CHLORIDE 0.9% 1,000 ML IV STA (13:20)
[2021-08-18] MEDS ORDERED: KETOROLAC 15 MG/ML 1 ML VIAL IVP STA ×2 (13:20→15:32)
[2021-08-18] MEDS ORDERED: AMPICILLIN-SULBACTAM 3 GM in SODIUM CHLORIDE 0.9% 100 ML IVPB STA (13:22)
[2021-08-18 13:48] LABS: Basophils # (A) 0.1 k/uL (0-0.2); Basophils % (A) 2 %; Eosinophils # (A) 0.2 k/uL (0-0.7); Eosinophils % (A) 2 %; HGB 13.1 gm/dL (11.4-16.0); Lymphocytes # (A) 1.7 k/uL (1.0-4.8); Lymphocytes % (A) 22 %; MCH 28.9 pg (25.0-35.0); MCHC 34.4 g/dL (31.0-37.0); Mean Platelet Volume 7.3; Monocytes # (A) 0.4 k/uL (0-1.0); Monocytes % (A) 5 %; Neutrophils # (A) 5.3 k/uL (1.3-7.7); Neutrophils % (A) 68 %; Platelet Count 258 k/uL (150-450); RBC 4.53 m/uL (3.80-5.40); WBC 7.8 k/uL (3.8-10.6)
--- NOTE | 2021-08-18 13:50 | ED ---
Abdominal Pain HPI - General Chief Complaint: Abdominal Pain Stated Complaint: revisit - med refill, female Time Seen by Provider: 08/18/21 12:36 Source: patient, RN notes reviewed Mode of arrival: ambulatory Limitations: no limitations - History of Present Illness Initial Comments: This is a 40-year-old female who presents to the emergency department for dysuria, bilateral flank pain, and lower abdominal pain. She also reports thick vaginal discharge. She was evaluated here on 08/06 for the same symptoms. She was concerned about an STD at that time and she was treated prophylactically with Flagyl, Rocephin, and doxycycline. She was also found to have a UTI and was given a prescription for Keflex. States that symptoms improved for 2 days a nd then returned. Also states that she feels fatigued and nauseous. Additionally, she requests another refill on her psychiatric medication. States that her appointment with her primary care physician ended up getting pushed back and she is out of her medication. Denies any fevers, chills, sore throat, cough, dyspnea, chest pain, palpitations, vomiting, diarrhea, back pain, or headaches. MD Complaint: abdominal pain, flank pain Onset/Timin -: days(s) Location: LLQ, RLQ, L flank, R flank Consistency: constant Associated Symptoms: dysuria - Related Data Previous Rx's Medication Instructions Recorded Buprenorphine HCl/Naloxone HCl 1 each SL DAILY #30 film 07/03/21 [Suboxone 8 mg-2 mg Sl Film] Cephalexin [Keflex] 500 mg PO Q12HR 7 Days #14 cap 08/06/21 Doxycycline [Vibramycin] 100 mg PO BID 7 Days #14 capsule 08/06/21 Benztropine Mesylate [Cogentin] 0.5 mg PO BID #60 tab 08/18/21 DULoxetine HCL [Cymbalta] 60 mg PO TID #90 cap 08/18/21 Mirtazapine 15 mg PO HS #30 tablet 08/18/21 Nitrofurantoin Monohyd/M-Cryst 100 mg PO Q12HR 5 Days #10 cap 08/18/21 [Macrobid] Ondansetron Odt [Zofran Odt] 4 mg PO Q8HR PRN #15 tab 08/18/21 QUEtiapine FUMARATE [SEROquel XR] 300 mg PO QAM #30 tab 08/18/21 QUEtiapine XR [SEROquel XR] 50 mg PO HS #30 08/18/21 haloperidoL [Haldol] 5 mg PO HS #30 tab 08/18/21 metroNIDAZOLE [Flagyl] 500 mg PO BID 7 Days #14 tab 08/18/21 Allergies Allergy/AdvReac Type Severity Reaction Status Date / Time Iodinated Contrast Media Allergy Anaphylaxis Verified 08/18/21 12:07 Opioids - Morphine Analogues AdvReac Does not Verified 08/18/21 12:07 want Opioids-Meperidine and AdvReac Does not Verified 08/18/21 12:07 Related want Opioids-Methadone and Related AdvReac Does not Verified 08/18/21 12:07 want sulfamethoxazole AdvReac Diarrhea Verified 08/18/21 12:07 [From Bactrim] trimethoprim [From Bactrim] AdvReac Diarrhea Verified 08/18/21 12:07 Review of Systems ROS Statement: Those systems with pertinent positive or pertinent negative responses have been documented in the HPI. ROS Other: All systems not noted in ROS Statement are negative. Past Medical History Past Medical History: Asthma, GERD/Reflux, Seizure Disorder History of Any Multi-Drug Resistant Organisms: ESBL Date of last positivie culture/infection: 08/06/21 ESBL E.coli MDRO Source:: Urine Past Surgical History: Appendectomy, Cholecystectomy, Hysterectomy, Orthopedic Surgery Additional Past Surgical History / Comment(s): rt arm surgery Past Anesthesia/Blood Transfusion Reactions: No Reported Reaction Past Psychological History: Anxiety, Bipolar, PTSD Smoking Status: Current every day smoker Past Alcohol Use History: None Reported Past Drug Use History: None Reported - Past Family History family Family Medical History: No Reported History General Exam Limitations: no limitations General appearance: alert, in no apparent distress Head exam: Present: atraumatic, normocephalic, normal inspection Respiratory exam: Present: normal lung sounds bilaterally. Absent: respiratory distress, wheezes, rales, rhonchi, stridor Cardiovascular Exam: Present: regular rate, normal rhythm, normal heart sounds. Absent: systolic murmur, diastolic murmur, rubs, gallop, clicks GI/Abdominal exam: Present: soft, tenderness (LLQ), normal bowel sounds. Absent: distended, guarding, rebound, rigid External exam: Present: normal external exam. Absent: erythema, swelling Speculum exam: Present: vaginal discharge, cervical discharge (Green/white and m ilky). Absent: vaginal bleeding, foreign body, tissue Back exam: Present: CVA tenderness (R), CVA tenderness (L) Neurological exam: Present: alert, oriented X3, CN II-XII intact Psychiatric exam: Present: normal affect, normal mood Skin exam: Present: warm, dry, intact, normal color. Absent: rash Course Vital Signs 08/18/21 08/18/21 08/18/21 12:05 15:00 18:00 Temperature 98.2 F 98.4 F Pulse Rate 101 H 91 68 Respiratory 22 16 16 Rate Blood Pressure 103/60 118/82 123/81 O2 Sat by Pulse 98 100 100 Oximetry Medical Decision Making - Medical Decision Making This is a 40-year-old female who presents to the emergency department for continuation of dysuria with the addition of increased vaginal discharge and lower abdominal pain. Patient did test negative for gonorrhea and chlamydia during her last visit. Upon review of the urine culture, the urine was resistant to several cephalosporins, making it possible that the Keflex was not sufficient. Given the increasing pain, computed tomography scan of the abdomen and pelvis was obtained, revealing no acute irregularities to explain the patient's symptoms. Lab work was also nonactionable. Pelvic exam was performed, revealing white/green milky discharge. Cervical cultures were obtained. Patient also going to be tested for syphilis and Trichomonas. Prescription for Macrobid was sent to the pharmacy, as the urine culture showed that the Macrobid should be effective. Will also treat patient with a week of metronidazole for possible bacterial vaginosis or trichomonas based on the symptoms and vaginal discharge. Additionally, patient was given empiric dose of pen G for possible syphilis. Discussed with the patient, that at this point, she will have been treated prophylactically for all STDs, which is a big concern for the patient, as she does have unprotected intercourse with different male partners. Instructed her to avoid sexual intercourse for the meantime until she finishes taking the medication and receives the results of the cervical culture, Trichomonas, and syphilis testing. Patient was also counseled on safe sex practices. Her psychiatric medication was also refilled for her until she can see her primary care provider. This is not a medication that should be discontinued abruptly, and because it is not controlled, I am willing to refill it for her. Luis Alberto was also prescribed in the event she has any persistent nausea/vomiting. Return precautions reviewed in depth, the patient is instructed to return to the emergency department with any new, worsening, or concerning symptoms. Patient verbalized understanding. This case was discussed in detail with the attending ED physician. Presentation, findings, and treatment plan discussed in detail as well. - Lab Data Result diagrams: 08/18/21 13:36 08/18/21 13:36 Lab Results 08/18/21 08/18/21 08/18/21 Range/Units 13:36 13:36 13:36 WBC 7.8 (3.8-10.6) k/uL RBC 4.53 (3.80-5.40) m/uL Hgb 13.1 (11.4-16.0) gm/dL Hct 38.0 (34.0-46.0) % MCV 84.0 (80.0-100.0) fL MCH 28.9 (25.0-35.0) pg MCHC 34.4 (31.0-37.0) g/dL RDW 13.0 (11.5-15.5) % Plt Count 258 (150-450) k/uL MPV 7.3 Neutrophils % 68 % Lymphocytes % 22 % Monocytes % 5 % Eosinophils % 2 % Basophils % 2 % Neutrophils # 5.3 (1.3-7.7) k/uL Lymphocytes # 1.7 (1.0-4.8) k/uL Monocytes # 0.4 (0-1.0) k/uL Eosinophils # 0.2 (0-0.7) k/uL Basophils # 0.1 (0-0.2) k/uL Sodium 140 (137-145) mmol/L Potassium 4.0 (3.5-5.1) mmol/L Chloride 104 (98-107) mmol/L Carbon Dioxide 29 (22-30) mmol/L Anion Gap 7 mmol/L BUN 14 (7-17) mg/dL Creatinine 0.86 (0.52-1.04) mg/dL Est GFR (CKD-EPI)AfAm >90 (>60 ml/min/1.73 sqM) Est GFR (CKD-EPI)NonAf 84 (>60 ml/min/1.73 sqM) Glucose 107 H (74-99) mg/dL Plasma Lactic Acid Fernando (0.7-2.0) mmol/L Calcium 8.9 (8.4-10.2) mg/dL Total Bilirubin 0.3 (0.2-1.3) mg/dL AST 91 H (14-36) U/L ALT 112 H (4-34) U/L Alkaline Phosphatase 94 (38-126) U/L Total Protein 6.4 (6.3-8.2) g/dL Albumin 4.1 (3.5-5.0) g/dL Amylase 40 (30-110) U/L Lipase 132 (23-300) U/L Urine Color Yellow Urine Appearance Cloudy H (Clear) Urine pH 5.5 (5.0-8.0) Ur Specific [place] 1.015 (1.001-1.035) Urine Protein Trace H (Negative) Urine Glucose (UA) Negative (Negative) Urine Ketones Negative (Negative) Urine Blood Small H (Negative) Urine Nitrite Negative (Negative) Urine Bilirubin Negative (Negative) Urine Urobilinogen <2.0 (<2.0) mg/dL Ur Leukocyte Esterase Large H (Negative) Urine RBC 9 H (0-5) /hpf Urine WBC 80 H (0-5) /hpf Ur Squamous Epith Cells <1 (0-4) /hpf Urine Bacteria Rare H (None) /hpf Urine Mucus Rare H (None) /hpf Trichomonas Ag (Rapid) (Negative) 08/18/21 08/18/21 Range/Units 13:36 18:00 WBC (3.8-10.6) k/uL RBC (3.80-5.40) m/uL Hgb (11.4-16.0) gm/dL Hct (34.0-46.0) % MCV (80.0-100.0) fL MCH (25.0-35.0) pg MCHC (31.0-37.0) g/dL RDW (11.5-15.5) % Plt Count (150-450) k/uL MPV Neutrophils % % Lymphocytes % % Monocytes % % Eosinophils % % Basophils % % Neutrophils # (1.3-7.7) k/uL Lymphocytes # (1.0-4.8) k/uL Monocytes # (0-1.0) k/uL Eosinophils # (0-0.7) k/uL Basophils # (0-0.2) k/uL Sodium (137-145) mmol/L Potassium (3.5-5.1) mmol/L Chloride (98-107) mmol/L Carbon Dioxide (22-30) mmol/L Anion Gap mmol/L BUN (7-17) mg/dL Creatinine (0.52-1.04) mg/dL Est GFR (CKD-EPI)AfAm (>60 ml/min/1.73 sqM) Est GFR (CKD-EPI)NonAf (>60 ml/min/1.73 sqM) Glucose (74-99) mg/dL Plasma Lactic Acid Fernando 1.1 (0.7-2.0) mmol/L Calcium (8.4-10.2) mg/dL Total Bilirubin (0.2-1.3) mg/dL AST (14-36) U/L ALT (4-34) U/L Alkaline Phosphatase (38-126) U/L Total Protein (6.3-8.2) g/dL Albumin (3.5-5.0) g/dL Amylase (30-110) U/L Lipase (23-300) U/L Urine Color Urine Appearance (Clear) Urine pH (5.0-8.0) Ur Specific [place] (1.001-1.035) Urine Protein (Negative) Urine Glucose (UA) (Negative) Urine Ketones (Negative) Urine Blood (Negative) Urine Nitrite (Negative) Urine Bilirubin (Negative) Urine Urobilinogen (<2.0) mg/dL Ur Leukocyte Esterase (Negative) Urine RBC (0-5) /hpf Urine WBC (0-5) /hpf Ur Squamous Epith Cells (0-4) /hpf Urine Bacteria (None) /hpf Urine Mucus (None) /hpf Trichomonas Ag (Rapid) Negative (Negative) Disposition Clinical Impression: Vaginal discharge, Dysuria, UTI (urinary tract infection) Disposition: HOME SELF-CARE Additional Instructions: Return to the emergency department with any new, worsening, or concerning symptoms. Take the Macrobid and Flagyl as prescribed. The Zofran can be taken as needed for nausea and vomiting. Your medications were refilled for 30 days, which should help you get through until your appointment with your primary care provider. Make sure you follow-up with him as scheduled. Prescriptions: Benztropine Mesylate [Cogentin] 0.5 mg PO BID #60 tab DULoxetine HCL [Cymbalta] 60 mg PO TID #90 cap metroNIDAZOLE [Flagyl] 500 mg PO BID 7 Days #14 tab haloperidoL [Haldol] 5 mg PO HS #30 tab Nitrofurantoin Monohyd/M-Cryst [Macrobid] 100 mg PO Q12HR 5 Days #10 cap Mirtazapine 15 mg PO HS #30 tablet QUEtiapine FUMARATE [SEROquel XR] 300 mg PO QAM #30 tab QUEtiapine XR [SEROquel XR] 50 mg PO HS #30 Ondansetron Odt [Zofran Odt] 4 mg PO Q8HR PRN #15 tab PRN Reason: Nausea And Vomiting Is patient prescribed a controlled substance at d/c from ED?: No Referrals: None,Stated [Primary Care Provider] - 1-2 days
[2021-08-18 13:56] LABS: ALT 112 U/L (4-34); AST 91 U/L (14-36); African American GFR (CKD) >90 (>60 ml/min/1.73 sqM); Albumin 4.1 g/dL (3.5-5.0); Alkaline Phosphatase 94 U/L (38-126); Amylase 40 U/L (30-110); Anion Gap 7 mmol/L; Appearance,Urine Cloudy (Clear); Bacteria,Urine Rare /hpf; Bilirubin,Urine Negative (Negative); Blood Urea Nitrogen 14 mg/dL (7-17); Blood,Urine Small (Negative); Calcium 8.9 mg/dL (8.4-10.2); Carbon Dioxide 29 mmol/L (22-30); Chloride 104 mmol/L (98-107); Color,Urine Yellow; Glucose 107 mg/dL (74-99); Glucose,Urine (UA) Negative (Negative); Ketones,Urine Negative (Negative); Leukocyte Esterase,Urine Large (Negative); Lipase 132 U/L (23-300); Mucus,Urine Rare /hpf; Nitrite,Urine Negative (Negative); Non-African American GFR(CKD) 84 (>60 ml/min/1.73 sqM); PH, Urine 5.5 (5.0-8.0); Protein,Urine Trace (Negative); RBC,Urine 9 /hpf (0-5); Sodium 140 mmol/L (137-145); Specific Gravity,Urine 1.015 (1.001-1.035); Squamous Epithelial Cell,Urine <1 /hpf (0-4); Total Bilirubin 0.3 mg/dL (0.2-1.3); Total Protein 6.4 g/dL (6.3-8.2); Urobilinogen,Urine <2.0 mg/dL (<2.0); WBC,Urine 80 /hpf (0-5)
[2021-08-18] MEDS ORDERED: methylPREDNISolone SOD SUCCI 125 MG/2 ML VIAL IV STA (15:49)
[2021-08-18] MEDS ORDERED: diphenhydrAMINE 50 MG/ML 1 ML VIAL IVP STA ×2 (15:49→17:19)
[2021-08-18] MEDS ORDERED: FAMOTIDINE 20 MG/2 ML VIAL IV STA (16:28)
[2021-08-18] MEDS ORDERED: METOCLOPRAMIDE 5 MG/ML 2 ML VIAL IVP STA (17:19)
[2021-08-18] MEDS ORDERED: ONDANSETRON 4 MG/2 ML VIAL IVP STA (17:19)
--- NOTE | 2021-08-18 17:33 | CT ---
EXAMINATION TYPE: CT abdomen pelvis w con DATE OF EXAM: 08/18/2021 COMPARISON: 05/15/2011 HISTORY: Abdominal pain, acute CT DLP: 735.7 mGycm Automated exposure control for dose reduction was used. CONTRAST: Performed with IV Contrast, patient injected with 100ml mL of Isovue 300. Images obtained from the diaphragm to the floor the pelvis with IV contrast. There is some mild atelectasis at the posterior lung bases. No pleural effusion. Heart size is normal . No pericardial effusion. Liver spleen and stomach pancreas appear intact. The bowel gas are not dilated. There are clips from cholecystectomy. There is no adrenal mass. Kidneys show satisfactory contrast opacification. There is no hydronephrosi s. Ureters are not dilated. There is no retroperitoneal adenopathy. Bladder distends smoothly. No ing uinal hernia. No free fluid in the pelvis. No evidence of a pelvic mass. There is hysterectomy. Lumbar vertebrae have normal alignment. Disc spaces are fairly normal. Posterior elements are intact. No compression fracture. Bony pelvis is intact. There is no mesenteric edema. No ascites or free air. No bowel obstruction. There is retained fecal m aterial in the large bowel down to the rectum. Appendix is not seen. No sign of thickened appendix. IMPRESSION: There is constipation which is new compared to old exam. There is some patchy atelectasis at the lung bases which is new compared to old exam.
[2021-08-18 18:51] VITALS: BP 123/81; PULSE 68; RESP 16; TEMP 98.4
[2021-08-18] MEDS: PENICILLIN G BENZATHINE 1,200,000 UNIT/2 ML SYRINGE IM STA ×2 (19:22→19:23)
== END 2021-08-18 19:33 | disposition home or self-care (01) ==
LOC: EC 12:00
DX: N39.0 Urinary tract infection, site not specified (principal); F17.200 Nicotine dependence, unspecified, uncomplicated; J45.909 Unspecified asthma, uncomplicated; Z91.041 Radiographic dye allergy status; Z88.5 Allergy status to narcotic agent; Z88.2 Allergy status to sulfonamides
CPT/HCPCS: 99284 ×2; 96376 ×2; 96361 ×2; 96365 ×2; 96372 ×2; 96375 ×2; 36415; 80053; 82150; 83605; 83690; 85025; 81001; 87040; 87808; 86780; 87070; 87086; 87102; 74177; J0561; J1200; J2765; J2930; J2405; J0295; J1885; Q9967

== ENCOUNTER 2021-08-28 12:35 | Emergency (ER) | payer OTHER ==
[2021-08-28 12:52] VITALS: TEMP 98.1
[2021-08-28] MEDS ORDERED: KETOROLAC 15 MG/ML 1 ML VIAL IVP STA (13:58)
[2021-08-28] MEDS ORDERED: SODIUM CHLORIDE 0.9% 1,000 ML IV STA (13:58)
[2021-08-28] MEDS ORDERED: diphenhydrAMINE 50 MG/ML 1 ML VIAL IVP STA (13:58)
[2021-08-28 14:06] LABS: Appearance,Urine Clear (Clear); Bilirubin,Urine Negative (Negative); Blood,Urine Negative (Negative); Color,Urine Yellow; Glucose,Urine (UA) Negative (Negative); Ketones,Urine Negative (Negative); Leukocyte Esterase,Urine Trace (Negative); Mucus,Urine Rare /hpf; Nitrite,Urine Negative (Negative); Protein,Urine Trace (Negative); Specific Gravity,Urine 1.024 (1.001-1.035); Squamous Epithelial Cell,Urine 2 /hpf (0-4); WBC,Urine 7 /hpf (0-5)
[2021-08-28 14:33] LABS: Basophils % (A) 1 %; Eosinophils # (A) 0.2 k/uL (0-0.7); Eosinophils % (A) 3 %; HCT 40.5 % (34.0-46.0); HGB 13.3 gm/dL (11.4-16.0); Lymphocytes # (A) 2.2 k/uL (1.0-4.8); Lymphocytes % (A) 39 %; MCH 28.1 pg (25.0-35.0); MCHC 32.7 g/dL (31.0-37.0); MCV 85.9 fL (80.0-100.0); Mean Platelet Volume 7.3; Monocytes # (A) 0.5 k/uL (0-1.0); Monocytes % (A) 8 %; Neutrophils # (A) 2.7 k/uL (1.3-7.7); Neutrophils % (A) 47 %; Platelet Count 255 k/uL (150-450); RBC 4.72 m/uL (3.80-5.40); RDW 13.5 % (11.5-15.5); WBC 5.7 k/uL (3.8-10.6)
--- NOTE | 2021-08-28 14:40 | ED ---
Abdominal Pain HPI - General Chief Complaint: Urogenital Stated Complaint: ABD pain, lower back pain Time Seen by Provider: 08/28/21 13:13 Source: patient, RN notes reviewed Limitations: no limitations - History of Present Illness Initial Comments: This is a 41-year-old female who presents to the emergency department for burning with urination, abdominal pain, and back pain. This is the third time I have seen the patient in the emergency department this month. She has been t ested for gonorrhea, chlamydia, syphilis, and trichomonas, all of which have been negative. She was, however, treat her prophylactically for all listed STIs. Additionally, she's been treated for urinary tract infections twice. I also did a pelvic exam during her last visit and took genital and fungal cultures. Those returned negative as well. Patient states that the vaginal discharge is gone, however she continues to have dark urine and burning. Also states that the abdominal pain is new and feels like the last time she had pancreatitis. Denies any nausea or vomiting. Denies any fevers, chills, sore throat, cough, dyspnea, chest pain, palpitations, nausea, vomiting, diarrhea, or headaches. MD Complaint: abdominal pain, other (back pain) Location: LUQ, RUQ Radiation: back Associated Symptoms: dysuria - Related Data Previous Rx's Medication Instructions Recorded Buprenorphine HCl/Naloxone HCl 1 each SL DAILY #30 film 07/03/21 [Suboxone 8 mg-2 mg Sl Film] Cephalexin [Keflex] 500 mg PO Q12HR 7 Days #14 cap 08/06/21 Doxycycline [Vibramycin] 100 mg PO BID 7 Days #14 capsule 08/06/21 Benztropine Mesylate [Cogentin] 0.5 mg PO BID #60 tab 08/18/21 DULoxetine HCL [Cymbalta] 60 mg PO TID #90 cap 08/18/21 Mirtazapine 15 mg PO HS #30 tablet 08/18/21 Nitrofurantoin Monohyd/M-Cryst 100 mg PO Q12HR 5 Days #10 cap 08/18/21 [Macrobid] Ondansetron Odt [Zofran Odt] 4 mg PO Q8HR PRN #15 tab 08/18/21 QUEtiapine FUMARATE [SEROquel XR] 300 mg PO QAM #30 tab 07/10/22 QUEtiapine XR [SEROquel XR] 50 mg PO HS #30 08/18/21 haloperidoL [Haldol] 5 mg PO HS #30 tab 08/18/21 metroNIDAZOLE [Flagyl] 500 mg PO BID 7 Days #14 tab 08/18/21 Baclofen 10 mg PO QID PRN #30 tab 08/28/21 Ketorolac [Toradol] 10 mg PO Q6HR 3 Days #12 tab 08/28/21 Phenazopyridine [Pyridium] 200 mg PO TID 3 Days #9 tablet 08/28/21 Allergies Allergy/AdvReac Type Severity Reaction Status Date / Time Iodinated Contrast Media Allergy Anaphylaxis Verified 08/28/21 12:52 Opioids - Morphine Analogues AdvReac Does not Verified 08/28/21 12:52 want Opioids-Meperidine and AdvReac Does not Verified 08/28/21 12:52 Related want Opioids-Methadone and Related AdvReac Does not Verified 08/28/21 12:52 want sulfamethoxazole AdvReac Diarrhea Verified 08/28/21 12:52 [From Bactrim] trimethoprim [From Bactrim] AdvReac Diarrhea Verified 08/28/21 12:52 Review of Systems ROS Statement: Those systems with pertinent positive or pertinent negative responses have been documented in the HPI. ROS Other: All systems not noted in ROS Statement are negative. Past Medical History Past Medical History: Asthma, GERD/Reflux, Seizure Disorder History of Any Multi-Drug Resistant Organisms: ESBL Date of last positivie culture/infection: 08/06/21 ESBL E.coli MDRO Source:: Urine Past Surgical History: Appendectomy, Cholecystectomy, Hysterectomy, Orthopedic Surgery Additional Past Surgical History / Comment(s): rt arm surgery Past Anesthesia/Blood Transfusion Reactions: No Reported Reaction Past Psychological History: Anxiety, Bipolar, PTSD Smoking Status: Current every day smoker Past Alcohol Use History: None Reported Past Drug Use History: None Reported - Past Family History family Family Medical History: No Reported History General Exam Limitations: no limitations General appearance: alert, in no apparent distress Head exam: Present: atraumatic, normocephalic, normal inspection Respiratory exam: Present: normal lung sounds bilaterally. Absent: respiratory distress, wheezes, rales, rhonchi, stridor Cardiovascular Exam: Present: regular rate, normal rhythm, normal heart sounds. Absent: systolic murmur, diastolic murmur, rubs, gallop, clicks GI/Abdominal exam: Present: soft, normal bowel sounds. Absent: distended, tenderness, guarding, rebound, rigid Neurological exam: Present: alert, oriented X3, CN II-XII intact Psychiatric exam: Present: normal affect, normal mood Skin exam: Present: warm, dry, intact, normal color. Absent: rash Course Vital Signs 08/28/21 12:49 Temperature 98.1 F Pulse Rate 93 Respiratory 18 Rate Blood Pressure 89/54 O2 Sat by Pulse 97 Oximetry Medical Decision Making - Medical Decision Making This is a 41-year-old female who presents to the emergency department for dysuria, abdominal pain, and back pain. Lab work was nonactionable. Urinalysis revealed no signs of a urinary tract infection, nor was a urine dark as she had described. She was rehydrated with a liter bolus of normal saline. She was also given a dose of Pyridium and Norflex, which she states did improve her symptoms. She'll be discharged with prescriptions for Toradol, Pyridium, and baclofen. Advised to take baclofen at night until she knows how it effects her, as it can be sedating. Also advised she avoid taking other anti-inflammatories with the Toradol. Follow-up for [facility] and urology listed on the discharge forms in the event she continues to have these ongoing urinary issues. Advise she apply heat to the areas of pain as well and follow up with her primary care provider for further evaluation of ongoing symptoms. Return precautions reviewed in depth, the patient is instructed to return to the emergency department with any new, worsening, or concerning symptoms. Patient verbalized understanding. This case was discussed in detail with the attending ED physician. Presentation, findings, and treatment plan discussed in detail as well. - Lab Data Result diagrams: 08/28/21 14:08 08/28/21 14:08 Lab Results 08/28/21 08/28/21 08/28/21 Range/Units 13:44 13:44 14:08 WBC 5.7 (3.8-10.6) k/uL RBC 4.72 (3.80-5.40) m/uL Hgb 13.3 (11.4-16.0) gm/dL Hct 40.5 (34.0-46.0) % MCV 85.9 (80.0-100.0) fL MCH 28.1 (25.0-35.0) pg MCHC 32.7 (31.0-37.0) g/dL RDW 13.5 (11.5-15.5) % Plt Count 255 (150-450) k/uL MPV 7.3 Neutrophils % 47 % Lymphocytes % 39 % Monocytes % 8 % Eosinophils % 3 % Basophils % 1 % Neutrophils # 2.7 (1.3-7.7) k/uL Lymphocytes # 2.2 (1.0-4.8) k/uL Monocytes # 0.5 (0-1.0) k/uL Eosinophils # 0.2 (0-0.7) k/uL Basophils # 0.0 (0-0.2) k/uL Sodium (137-145) mmol/L Potassium (3.5-5.1) mmol/L Chloride (98-107) mmol/L Carbon Dioxide (22-30) mmol/L Anion Gap mmol/L BUN (7-17) mg/dL Creatinine (0.52-1.04) mg/dL Est GFR (CKD-EPI)AfAm (>60 ml/min/1.73 sqM) Est GFR (CKD-EPI)NonAf (>60 ml/min/1.73 sqM) Glucose (74-99) mg/dL Calcium (8.4-10.2) mg/dL Total Bilirubin (0.2-1.3) mg/dL AST (14-36) U/L ALT (4-34) U/L Alkaline Phosphatase (38-126) U/L Total Protein (6.3-8.2) g/dL Albumin (3.5-5.0) g/dL Amylase (30-110) U/L Lipase (23-300) U/L Urine Color Yellow Urine Appearance Clear (Clear) Urine pH 7.0 (5.0-8.0) Ur Specific [place] 1.024 (1.001-1.035) Urine Protein Trace H (Negative) Urine Glucose (UA) Negative (Negative) Urine Ketones Negative (Negative) Urine Blood Negative (Negative) Urine Nitrite Negative (Negative) Urine Bilirubin Negative (Negative) Urine Urobilinogen 2.0 (<2.0) mg/dL Ur Leukocyte Esterase Trace H (Negative) Urine WBC 7 H (0-5) /hpf Ur Squamous Epith Cells 2 (0-4) /hpf Urine Mucus Rare H (None) /hpf Urine HCG, Qual Not Detected (Not Detectd) 08/28/21 Range/Units 14:08 WBC (3.8-10.6) k/uL RBC (3.80-5.40) m/uL Hgb (11.4-16.0) gm/dL Hct (34.0-46.0) % MCV (80.0-100.0) fL MCH (25.0-35.0) pg MCHC (31.0-37.0) g/dL RDW (11.5-15.5) % Plt Count (150-450) k/uL MPV Neutrophils % % Lymphocytes % % Monocytes % % Eosinophils % % Basophils % % Neutrophils # (1.3-7.7) k/uL Lymphocytes # (1.0-4.8) k/uL Monocytes # (0-1.0) k/uL Eosinophils # (0-0.7) k/uL Basophils # (0-0.2) k/uL Sodium 138 (137-145) mmol/L Potassium 4.3 (3.5-5.1) mmol/L Chloride 103 (98-107) mmol/L Carbon Dioxide 33 H (22-30) mmol/L Anion Gap 2 mmol/L BUN 13 (7-17) mg/dL Creatinine 0.85 (0.52-1.04) mg/dL Est GFR (CKD-EPI)AfAm >90 (>60 ml/min/1.73 sqM) Est GFR (CKD-EPI)NonAf 85 (>60 ml/min/1.73 sqM) Glucose 86 (74-99) mg/dL Calcium 9.0 (8.4-10.2) mg/dL Total Bilirubin 0.3 (0.2-1.3) mg/dL AST 102 H (14-36) U/L ALT 135 H (4-34) U/L Alkaline Phosphatase 90 (38-126) U/L Total Protein 6.3 (6.3-8.2) g/dL Albumin 4.0 (3.5-5.0) g/dL Amylase 47 (30-110) U/L Lipase 90 (23-300) U/L Urine Color Urine Appearance (Clear) Urine pH (5.0-8.0) Ur Specific [place] (1.001-1.035) Urine Protein (Negative) Urine Glucose (UA) (Negative) Urine Ketones (Negative) Urine Blood (Negative) Urine Nitrite (Negative) Urine Bilirubin (Negative) Urine Urobilinogen (<2.0) mg/dL Ur Leukocyte Esterase (Negative) Urine WBC (0-5) /hpf Ur Squamous Epith Cells (0-4) /hpf Urine Mucus (None) /hpf Urine HCG, Qual (Not Detectd) Disposition Clinical Impression: Lower back pain, Interstitial cystitis Disposition: HOME SELF-CARE Instructions (If sedation given, give patient instructions): Low Back Strain (ED), Interstitial Cystitis (ED) Additional Instructions: Return to the emergency department with any new, worsening, or concerning symptoms. Contact urology and [facility] as listed below for follow-up appointments to further investigate your ongoing symptoms. Take the Toradol or an alternative anti-inflammatory for the pain. Take the baclofen at night until you know how it affects you, as it can be sedating. You should avoid driving or operating machinery when taking this. You can also try taking the Pyridium for any burning or discomfort with urination. Prescriptions: Baclofen 10 mg PO QID PRN #30 tab PRN Reason: Pain Phenazopyridine [Pyridium] 200 mg PO TID 3 Days #9 tablet Ketorolac [Toradol] 10 mg PO Q6HR 3 Days #12 tab Is patient prescribed a controlled substance at d/c from ED?: No Referrals: None,Stated [Primary Care Provider] - 1-2 days Marc Smith MD [STAFF PHYSICIAN] - 1-2 days Shelby Salazar DO [Doctor of Osteopathic Medicine] - 1-2 days
[2021-08-28 14:44] LABS: ALT 135 U/L (4-34); AST 102 U/L (14-36); African American GFR (CKD) >90 (>60 ml/min/1.73 sqM); Alkaline Phosphatase 90 U/L (38-126); Amylase 47 U/L (30-110); Anion Gap 2 mmol/L; Blood Urea Nitrogen 13 mg/dL (7-17); Carbon Dioxide 33 mmol/L (22-30); Chloride 103 mmol/L (98-107); Glucose 86 mg/dL (74-99); Lipase 90 U/L (23-300); Non-African American GFR(CKD) 85 (>60 ml/min/1.73 sqM); Potassium 4.3 mmol/L (3.5-5.1); Sodium 138 mmol/L (137-145); Total Bilirubin 0.3 mg/dL (0.2-1.3); Total Protein 6.3 g/dL (6.3-8.2)
[2021-08-28] MEDS ORDERED: PHENAZOPYRIDINE 200 MG TAB PO STA (15:27)
[2021-08-28] MEDS ORDERED: ORPHENADRINE 30 MG/ML 2 ML VIAL IVP STA (15:33)
[2021-08-28 17:02] VITALS: BP 106/59; PULSE 55; RESP 15
[2021-08-29 12:31] LABS: C. trachomatis,PCR Negative (Neg,Equiv); Chlamydia trachomatis Source Urine; N. gonorrhoeae,PCR Negative (Neg,Equiv); Neisseria Source Urine
== END 2021-08-28 17:02 | disposition home or self-care (01) ==
LOC: EC 12:35
DX: N30.10 Interstitial cystitis (chronic) without hematuria (principal); M54.50 Low back pain, unspecified; J45.909 Unspecified asthma, uncomplicated; Z91.041 Radiographic dye allergy status; F17.200 Nicotine dependence, unspecified, uncomplicated; Z88.2 Allergy status to sulfonamides; Z88.1 Allergy status to other antibiotic agents
CPT/HCPCS: 36415; 80053; 82150; 83690; 85025; 81001; 81025; 87491; 87591; 99284; 96374; 96361; 96375; J1200; J2360; J1885

== ENCOUNTER 2021-09-06 11:10 | Emergency (ER) | payer OTHER ==
[2021-09-06 11:27] VITALS: BP 115/63; PULSE 95; RESP 18; TEMP 98.1
--- NOTE | 2021-09-06 12:18 | ED ---
General Adult HPI - General Chief complaint: Recheck/Abnormal Lab/Rx Stated complaint: revisit - med refill Time Seen by Provider: 09/06/21 11:39 Source: patient Mode of arrival: ambulatory Limitations: no limitations - History of Present Illness Initial comments: Dictation was produced using Feel[employer] dictation software. please excuse any grammatical, word or spelling errors. Chief Complaint: 41-year-old female presents emergency department for medication refill. History of Present Illness: 41-year-old female she presents to the emergency department for medication refill. Patient states that these medications have been prescribed by a psychiatrist. The medications in question is Seroquel 300 mg daily, benztropine 0.5 mg twice a day and Haldol 5 mg daily at bedtime. Patient has no complaints at this time. Patient unable to have an appointment with psychiatrist for refills and outpatient management for another 3 weeks. The ROS documented in this emergency department record has been reviewed and confirmed by me. Those systems with pertinent positive or negative responses have been documented in the HPI. All other systems are other negative and/or noncontributory. PHYSICAL EXAM: General Impression: Alert and oriented x3, not in acute distress HEENT: Normocephalic atraumatic, extra-ocular movements intact, pupils equal and reactive to light bilaterally, mucous membranes moist. Cardiovascular: Heart regular rate and rhythm Chest: Able to complete full sentences, no retractions, no tachypnea Musculoskeletal: Pulses present and equal in all extremities, no peripheral edema Motor: no focal deficits noted Neurological: CN II-XII grossly intact, no focal motor or sensory deficits noted Skin: Intact with no visualized rashes Psych: Normal affect and mood ED course: 41-year-old female presents emergency department for medication refills. Vital Signs upon arrival are within acceptable limits. EPS was con tacted to evaluate patient to hopefully move up her outpatient appointment for outpatient management of her psychiatric processes. EPS evaluated patient and was told to go directly to [facility] for outpatient management. Patient can receive her medication refills there. - Related Data Previous Rx's Medication Instructions Recorded Buprenorphine HCl/Naloxone HCl 1 each SL DAILY #30 film 07/03/21 [Suboxone 8 mg-2 mg Sl Film] Cephalexin [Keflex] 500 mg PO Q12HR 7 Days #14 cap 08/06/21 Doxycycline [Vibramycin] 100 mg PO BID 7 Days #14 capsule 08/06/21 Benztropine Mesylate [Cogentin] 0.5 mg PO BID #60 tab 08/18/21 DULoxetine HCL [Cymbalta] 60 mg PO TID #90 cap 08/18/21 Mirtazapine 15 mg PO HS #30 tablet 08/18/21 Nitrofurantoin Monohyd/M-Cryst 100 mg PO Q12HR 5 Days #10 cap 08/18/21 [Macrobid] Ondansetron Odt [Zofran Odt] 4 mg PO Q8HR PRN #15 tab 08/18/21 QUEtiapine FUMARATE [SEROquel XR] 300 mg PO QAM #30 tab 08/18/21 QUEtiapine XR [SEROquel XR] 50 mg PO HS #30 08/18/21 haloperidoL [Haldol] 5 mg PO HS #30 tab 08/18/21 metroNIDAZOLE [Flagyl] 500 mg PO BID 7 Days #14 tab 08/18/21 Baclofen 10 mg PO QID PRN #30 tab 08/28/21 Ketorolac [Toradol] 10 mg PO Q6HR 3 Days #12 tab 08/28/21 Phenazopyridine [Pyridium] 200 mg PO TID 3 Days #9 tablet 08/28/21 Allergies Allergy/AdvReac Type Severity Reaction Status Date / Time Iodinated Contrast Media Allergy Anaphylaxis Verified 09/06/21 11:27 Opioids - Morphine Analogues AdvReac Does not Verified 09/06/21 11:27 want Opioids-Meperidine and AdvReac Does not Verified 09/06/21 11:27 Related want Opioids-Methadone and Related AdvReac Does not Verified 09/06/21 11:27 want sulfamethoxazole AdvReac Diarrhea Verified 09/06/21 11:27 [From Bactrim] trimethoprim [From Bactrim] AdvReac Diarrhea Verified 09/06/21 11:27 Review of Systems ROS Statement: Those systems with pertinent positive or pertinent negative responses have been documented in the HPI. ROS Other: All systems not noted in ROS Statement are negative. Past Medical History Past Medical History: Asthma, GERD/Reflux, Seizure Disorder History of Any Multi-Drug Resistant Organisms: ESBL Date of last positivie culture/infection: 08/06/21 ESBL E.coli MDRO Source:: Urine Past Surgical History: Appendectomy, Cholecystectomy, Hysterectomy, Orthopedic Surgery Additional Past Surgical History / Comment(s): rt arm surgery Past Anesthesia/Blood Transfusion Reactions: No Reported Reaction Past Psychological History: Anxiety, Bipolar, PTSD Smoking Status: Current every day smoker Past Alcohol Use History: None Reported Past Drug Use History: None Reported - Past Family History family Family Medical History: No Reported History General Exam Limitations: no limitations Course Vital Signs 09/06/21 11:26 Temperature 98.1 F Pulse Rate 95 Respiratory 18 Rate Blood Pressure 115/63 O2 Sat by Pulse 98 Oximetry Disposition Clinical Impression: Medication refill Disposition: HOME SELF-CARE Condition: Good Instructions (If sedation given, give patient instructions): Medical Clearance for Psychiatric Care (ED) Additional Instructions: go directly to [facility] for med refillsl and further care as instructed Is patient prescribed a controlled substance at d/c from ED?: No Referrals: None,Stated [Primary Care Provider] - 1-2 days Time of Disposition: 12:38
== END 2021-09-06 12:46 | disposition home or self-care (01) ==
LOC: EC 11:10
DX: Z76.0 Encounter for issue of repeat prescription (principal); J45.909 Unspecified asthma, uncomplicated; F17.200 Nicotine dependence, unspecified, uncomplicated; Z79.899 Other long term (current) drug therapy; Z91.041 Radiographic dye allergy status; Z88.5 Allergy status to narcotic agent; Z88.2 Allergy status to sulfonamides
CPT/HCPCS: 99281

== ENCOUNTER 2021-09-08 14:40 | Emergency (ER) | payer OTHER ==
[2021-09-08 14:50] VITALS: BP 117/75; PULSE 93; RESP 18; TEMP 98.1
[2021-09-08] MEDS ORDERED: LORazepam 1 MG TAB PO STA (14:59)
--- NOTE | 2021-09-08 16:26 | ED ---
Psych HPI - General Chief Complaint: Psychiatric Symptoms Stated Complaint: Mental Health Time Seen by Provider: 09/08/21 14:50 Source: patient Mode of arrival: ambulatory - History of Present Illness Initial Comments: Patient is a 41-year-old female presenting for evaluation of anxiety. Patient states she's been unable to get her medication refills for several days, and she states that her anxiety has been heightened. Patient states that she occasionally has suicidal thoughts, but no plan. She denies any homicidal ideation. She denies any auditory or visual hallucinations. She denies any physical complaints at this time. - Related Data Previous Rx's Medication Instructions Recorded Buprenorphine HCl/Naloxone HCl 1 each SL DAILY #30 film 07/03/21 [Suboxone 8 mg-2 mg Sl Film] Cephalexin [Keflex] 500 mg PO Q12HR 7 Days #14 cap 08/06/21 Doxycycline [Vibramycin] 100 mg PO BID 7 Days #14 capsule 08/06/21 Benztropine Mesylate [Cogentin] 0.5 mg PO BID #60 tab 08/18/21 DULoxetine HCL [Cymbalta] 60 mg PO TID #90 cap 08/18/21 Mirtazapine 15 mg PO HS #30 tablet 08/18/21 Nitrofurantoin Monohyd/M-Cryst 100 mg PO Q12HR 5 Days #10 cap 08/18/21 [Macrobid] Ondansetron Odt [Zofran Odt] 4 mg PO Q8HR PRN #15 tab 08/18/21 QUEtiapine FUMARATE [SEROquel XR] 300 mg PO QAM #30 tab 08/18/21 QUEtiapine XR [SEROquel XR] 50 mg PO HS #30 08/18/21 haloperidoL [Haldol] 5 mg PO HS #30 tab 08/18/21 metroNIDAZOLE [Flagyl] 500 mg PO BID 7 Days #14 tab 08/18/21 Baclofen 10 mg PO QID PRN #30 tab 08/28/21 Ketorolac [Toradol] 10 mg PO Q6HR 3 Days #12 tab 08/28/21 Phenazopyridine [Pyridium] 200 mg PO TID 3 Days #9 tablet 08/28/21 Benztropine Mesylate [Cogentin] 0.5 mg PO BID #10 tablet 09/08/21 DULoxetine HCL [Cymbalta] 60 mg PO TID #15 cap 09/08/21 Mirtazapine 15 mg PO HS #5 tablet 09/08/21 QUEtiapine [SEROquel] 50 mg PO HS #5 tab 09/08/21 QUEtiapine [SEROquel] 300 mg PO DAILY #15 tablet 09/08/21 haloperidoL [Haldol] 5 mg PO HS #5 tab 09/08/21 Allergies Allergy/AdvReac Type Severity Reaction Status Date / Time Iodinated Contrast Media Allergy Anaphylaxis Verified 09/08/21 14:49 Opioids - Morphine Analogues AdvReac Does not Verified 09/08/21 14:49 want Opioids-Meperidine and AdvReac Does not Verified 09/08/21 14:49 Related want Opioids-Methadone and Related AdvReac Does not Verified 09/08/21 14:49 want sulfamethoxazole AdvReac Diarrhea Verified 09/08/21 14:49 [From Bactrim] trimethoprim [From Bactrim] AdvReac Diarrhea Verified 09/08/21 14:49 Review of Systems ROS Statement: Those systems with pertinent positive or pertinent negative responses have been documented in the HPI. ROS Other: All systems not noted in ROS Statement are negative. Past Medical History Past Medical History: Asthma, GERD/Reflux, Seizure Disorder History of Any Multi-Drug Resistant Organisms: ESBL Date of last positivie culture/infection: 08/06/21 ESBL E.coli MDRO Source:: Urine Past Surgical History: Appendectomy, Cholecystectomy, Hysterectomy, Orthopedic Surgery Additional Past Surgical History / Comment(s): rt arm surgery Past Anesthesia/Blood Transfusion Reactions: No Reported Reaction Past Psychological History: Anxiety, Bipolar, PTSD Smoking Status: Current every day smoker Past Alcohol Use History: None Reported Past Drug Use History: None Reported - Past Family History family Family Medical History: No Reported History General Exam Limitations: no limitations General appearance: alert, in no apparent distress Head exam: Present: atraumatic, normocephalic, normal inspection Eye exam: Present: normal appearance, EOMI. Absent: scleral icterus, periorbital swelling Neck exam: Present: normal inspection Respiratory exam: Present: normal lung sounds bilaterally. Absent: respiratory distress, wheezes, rales, rhonchi, stridor Cardiovascular Exam: Present: regular rate, normal rhythm, normal heart sounds. Absent: systolic murmur, diastolic murmur, rubs, gallop, clicks Neurological exam: Present: alert, oriented X3, CN II-XII intact Psychiatric exam: Present: normal affect, normal mood Skin exam: Present: warm, dry, intact, normal color. Absent: rash Course Vital Signs 09/08/21 14:46 Temperature 98.1 F Pulse Rate 93 Respiratory 18 Rate Blood Pressure 117/75 O2 Sat by Pulse 98 Oximetry Medical Decision Making - Medical Decision Making Patient is a 41-year-old female presenting for evaluation of acute anxiety. She has no physical complaints at this time. Physical examination is WNL. Patient spoke with EPS, they have determined that she is able for discharge with outpatient follow-up at this time. I provided a patient with five-day supply of medication refills. EPS will arrange for [facility] to provide the patient with her necessary refills. Follow-up with PCP in [facility] in one to 2 days. Report back to ER with any new or worsening symptoms. Discussed return parameters answered all questions. Patient conveyed verbal understanding and agreed to the plan. My attending is Dr. Paige. Disposition Clinical Impression: Acute anxiety Disposition: HOME SELF-CARE Condition: Good Instructions (If sedation given, give patient instructions): Anxiety (ED) Additional Instructions: Follow-up with PCP and [facility] in one to 2 days. Report back to ER with any new or worsening symptoms. Prescriptions: Benztropine Mesylate [Cogentin] 0.5 mg PO BID #10 tablet DULoxetine HCL [Cymbalta] 60 mg PO TID #15 cap haloperidoL [Haldol] 5 mg PO HS #5 tab Mirtazapine 15 mg PO HS #5 tablet QUEtiapine [SEROquel] 300 mg PO DAILY #15 tablet QUEtiapine [SEROquel] 50 mg PO HS #5 tab Is patient prescribed a controlled substance at d/c from ED?: Yes When asked, does pt state using other controlled substances?: No If prescribed controlled substance>3 days was MAPS reviewed?: Yes Referrals: None,Stated [Primary Care Provider] - 1-2 days Time of Disposition: 16:26
== END 2021-09-08 16:37 | disposition home or self-care (01) ==
LOC: EC 14:40
DX: F41.9 Anxiety disorder, unspecified (principal); J45.909 Unspecified asthma, uncomplicated; F17.200 Nicotine dependence, unspecified, uncomplicated; Z91.041 Radiographic dye allergy status; Z88.6 Allergy status to analgesic agent; Z88.5 Allergy status to narcotic agent; Z88.2 Allergy status to sulfonamides
CPT/HCPCS: 82075; 99284

== ENCOUNTER → 2023-11-04 | Outpatient (CLI) | payer OTHER ==
--- NOTE | 2023-11-09 12:44 | MM ---
Reason for Exam: Screening (asymptomatic). Last mammogram was performed 8 year(s) and 2 month(s) ago. Patient History: Menarche at age 9. First Full-Term at age 14. Left ovary removed at age 30. Right ovary removed at age 30. Hysterectomy at age 30. Postmenopausal. Patient has history of breast feeding. Patient tested for BRCA1 outcome was positive. Maternal cousin had breast cancer under age 50. Maternal cousin had breast cancer at or over age 50. Maternal aunt had breast cancer at or over age 50. Maternal aunt had breast cancer under age 50. Maternal aunt had breast cancer under age 50. Mother had breast cancer, age 72. Sister had breast cancer under age 50. Prior Study Comparison: 08/22/2015 Bilateral Screening Mammogram, [facility]. Tissue Density: There are scattered areas of fibroglandular density. Findings: Analyzed By CAD. Right breast: There is no suspicious group of microcalcifications or new suspicious mass. Left breast: There is no suspicious group of microcalcifications or new suspicious mass. Overall Assessment: Negative, BI-RAD 1 Management: Screening Mammogram of both breasts in [address] [facility] will attempt to contact patient to return for supplemental views and ultrasound if indicated. Patient should continue monthly self-breast exams. A clinical breast exam by your physician is recommended on an annual basis. This exam should not preclude additional follow-up of suspicious palpable abnormalities. Note on Yajaira scores and lifetime risk: 1. A Yajaira score greater than 3% is considered moderate risk. If this is the case, consider specialist referral to assess eligibility for a risk reducing agent. 2. If overall lifetime risk for the development of breast cancer is 20% or higher, the patient may qualify for future screening with alternating mammogram and breast MRI. [facility], , 11/09/2023 12:42 PM. Electronically signed and approved by: Tyrone Younger DO
== END | disposition home or self-care (01) ==
LOC: RADMAMWWP 13:31
PROVIDERS: ATTEND Family Medicine
DX: Z12.31 Encounter for screening mammogram for malignant neoplasm of breast
CPT/HCPCS: 77063; 77067

== ENCOUNTER 2024-02-10 10:16 | Emergency (ER) | payer OTHER ==
--- NOTE | 2024-02-10 11:35 | ED ---
Nausea/Vomiting/Diarrhea HPI - General Chief complaint: Nausea/Vomiting/Diarrhea Stated complaint: nvd/abd pain Time Seen by Provider: 02/10/24 10:31 Source: patient, RN notes reviewed Mode of arrival: ambulatory Limitations: no limitations - History of Present Illness Initial comments: This is a 43-year-old female with history of GERD and seizures presenting with nausea/vomiting x 7 days. Patient denies known cause for symptoms. Denies associated constipation, diarrhea, hematemesis. States she is having epigastric pain and right dorsal rib pain she attributes to intensity of vomiting. Endorses history of right rib fracture in the same area. Patient states she is having difficulty passing gas, bowel movements. Patient endorses "cyst on gut" preventing closure of sphincter years ago. Endorses use of Pepto and antacids with minimal relief. Endorses history of PTSD and is requesting anxiety medication since she is unable to hold down tablets. MD complaint: nausea, vomiting Onset/Timin -: days(s) - Related Data Previous Rx's Medication Instructions Recorded Buprenorphine HCl/Naloxone HCl 1 each SL DAILY #30 film 07/03/21 [Suboxone 8 mg-2 mg Sl Film] Cephalexin [Keflex] 500 mg PO Q12HR 7 Days #14 cap 08/06/21 Doxycycline [Vibramycin] 100 mg PO BID 7 Days #14 capsule 08/06/21 Benztropine Mesylate [Cogentin] 0.5 mg PO BID #60 tab 08/18/21 DULoxetine HCL [Cymbalta] 60 mg PO TID #90 cap 08/18/21 Mirtazapine 15 mg PO HS #30 tablet 08/18/21 Nitrofurantoin Monohyd/M-Cryst 100 mg PO Q12HR 5 Days #10 cap 08/18/21 [Macrobid] Ondansetron Odt [Zofran Odt] 4 mg PO Q8HR PRN #15 tab 08/18/21 QUEtiapine FUMARATE [SEROquel XR] 300 mg PO QAM #30 tab 08/18/21 QUEtiapine XR [SEROquel XR] 50 mg PO HS #30 08/18/21 haloperidoL [Haldol] 5 mg PO HS #30 tab 08/18/21 metroNIDAZOLE [Flagyl] 500 mg PO BID 7 Days #14 tab 08/18/21 Baclofen 10 mg PO QID PRN #30 tab 08/28/21 Ketorolac [Toradol] 10 mg PO Q6HR 3 Days #12 tab 08/28/21 Phenazopyridine [Pyridium] 200 mg PO TID 3 Days #9 tablet 08/28/21 Benztropine Mesylate [Cogentin] 0.5 mg PO BID #10 tablet 09/08/21 DULoxetine HCL [Cymbalta] 60 mg PO TID #15 cap 09/08/21 Mirtazapine 15 mg PO HS #5 tablet 09/08/21 QUEtiapine [SEROquel] 50 mg PO HS #5 tab 09/08/21 QUEtiapine [SEROquel] 300 mg PO DAILY #15 tablet 09/08/21 haloperidoL [Haldol] 5 mg PO HS #5 tab 09/08/21 Famotidine [Pepcid] 20 mg PO BID #30 tablet 02/10/24 Ondansetron [Zofran] 4 mg PO Q8HR PRN #15 tab 02/10/24 Allergies Allergy/AdvReac Type Severity Reaction Status Date / Time Iodinated Contrast Media Allergy Anaphylaxis Verified 02/10/24 10:52 Opioids - Morphine Analogues AdvReac Does not Verified 02/10/24 10:52 want Opioids-Meperidine and AdvReac Does not Verified 02/10/24 10:52 Related want Opioids-Methadone and Related AdvReac Does not Verified 02/10/24 10:52 want sulfamethoxazole AdvReac Diarrhea Verified 02/10/24 10:52 [From Bactrim] trimethoprim [From Bactrim] AdvReac Diarrhea Verified 02/10/24 10:52 Review of Systems ROS Statement: Those systems with pertinent positive or pertinent negative responses have been documented in the HPI. ROS Other: All systems not noted in ROS Statement are negative. Past Medical History Past Medical History: Asthma, GERD/Reflux, Seizure Disorder History of Any Multi-Drug Resistant Organisms: ESBL Date of last positivie culture/infection: 08/06/21 ESBL E.coli MDRO Source:: Urine Past Surgical History: Appendectomy, Cholecystectomy, Hysterectomy, Orthopedic Surgery Additional Past Surgical History / Comment(s): rt arm surgery Past Anesthesia/Blood Transfusion Reactions: No Reported Reaction Past Psychological History: Anxiety, Bipolar, PTSD Smoking Status: Vaper Past Alcohol Use History: None Reported Past Drug Use History: Marijuana - Past Family History family Family Medical History: No Reported History General Exam Limitations: no limitations General appearance: alert, in no apparent distress Head exam: Present: atraumatic, normocephalic, normal inspection Eye exam: Present: normal appearance, PERRL, EOMI. Absent: scleral icterus, conjunctival injection, periorbital swelling ENT exam: Present: normal exam, mucous membranes moist Neck exam: Present: normal inspection. Absent: tenderness, meningismus, lymphadenopathy Respiratory exam: Present: normal lung sounds bilaterally. Absent: respiratory distress, wheezes, rales, rhonchi, stridor Cardiovascular Exam: Present: regular rate, normal rhythm, normal heart sounds. Absent: systolic murmur, diastolic murmur, rubs, gallop, clicks GI/Abdominal exam: Present: soft, tenderness (Positive mild umbilical and epigastric tenderness without guarding. Negative tympanic tenderness or rebound tenderness), diminished bowel sounds. Absent: distended, guarding, rebound, rigid, mass, pulsatile mass, hernia Extremities exam: Present: normal inspection, full ROM, normal capillary refill, other (Bilateral posterior tibialis pulse +2). Absent: tenderness, pedal edema, joint swelling, calf tenderness Back exam: Present: normal inspection Neurological exam: Present: alert, oriented X3, CN II-XII intact Psychiatric exam: Present: normal affect, normal mood Skin exam: Present: warm, dry, intact, normal color. Absent: rash Course Vital Signs 02/10/24 02/10/24 02/10/24 10:44 12:40 14:13 Temperature 97.8 F Pulse Rate 60 54 L 68 Respiratory 17 20 20 Rate Blood Pressure 104/64 128/76 106/63 O2 Sat by Pulse 99 99 96 Oximetry 02/10/24 15:56 Temperature 98.1 F Pulse Rate 61 Respiratory 18 Rate Blood Pressure 111/70 O2 Sat by Pulse 98 Oximetry Medical Decision Making - Medical Decision Making Was pt. sent in by a medical professional or institution (, JADA, ELECTROPHYSIOLOGY NURSE PRACTITIONER, urgent care, hospital, or group home...) When possible be specific @ -No Did you speak to anyone other than the patient for history (EMS, parent, family, police, friend...)? What history was obtained from this source @ -No Did you review nursing and triage notes (agree or disagree)? Why? @ -I reviewed and agree with nursing and triage notes Were old charts reviewed (outside hosp., previous admission, EMS record, old EKG, old radiological studies, urgent care reports/EKG's, group home records)? Report findings @ -No old charts were reviewed Differential Diagnosis (chest pain, altered mental status, abdominal pain women, abdominal pain men, vaginal bleeding, weakness, fever, dyspnea, syncope, headache, dizziness, GI bleed, back pain, seizure, CVA, palpatations, mental health, musculoskeletal)? @ -Differential Abdominal Pain Women: Appendicitis, Cholecystitis, diverticulosis, ischemic bowel, pancreatitis, hepatitis, UTI, gastroenteritis, AAA, incarcerated hernia, bowel obstruction, constipation, inflammatory bowel, hepatitis, peptic ulcer disease, splenic infarction, perforated viscus, vulvitis, ovarian torsion, PID, kidney stone, placenta abruption, this is not meant to be an all-inclusive list EKG interpreted by me (3pts min.). @ -Sinus bradycardia without ST changes or T wave inversion. Ventricular rate 40 bpm, JOHNNIE 133 ms, QRS duration 122 ms, QTc 450 ms. X-rays interpreted by me (1pt min.). @ -CXR shows no acute pulmonary process. Rib x-ray shows no acute fracture or displacement of right ribs. CT interpreted by me (1pt min.). @ -Abdomen/pelvis CT shows left lower lung nodule with recommendation for neoplasm workup. Otherwise no acute abdominal abnormality noted. U/S interpreted by me (1pt. min.). @ -None done What testing was considered but not performed or refused? (CT, X-rays, U/S, labs)? Why? @ -None What meds were considered but not given or refused? Why? @ -None Did you discuss the management of the patient with other professionals (professionals i.e. , PA, ELECTROPHYSIOLOGY NURSE PRACTITIONER, lab, RT, psych nurse, administrator social welfare, valet attendant, teacher, public affairs officer, watch caser)? Give summary @ -No Was smoking cessation discussed for >3mins.? @ -No Was critical care preformed (if so, how long)? @ -No Were there social determinants of health that impacted care today? How? (Homelessness, low income, unemployed, alcoholism, drug addiction, transportation, low edu. Level, literacy, decrease access to med. care, half-way, rehab)? @ -No Was there de-escalation of care discussed even if they declined (Discuss DNR or withdrawal of care, Hospice)? DNR status @ -No What co-morbidities impacted this encounter? (DM, HTN, Smoking, COPD, CAD, Cancer, CVA, ARF, Chemo, Hep., AIDS, mental health diagnosis, sleep apnea, morbid obesity)? @ -PTSD Was patient admitted / discharged? Hospital course, mention meds given and route, prescriptions, significant lab abnormalities, going to OR and other pertinent info. @ -Lab work including lactic acid unremarkable. UA shows ketonuria and hematuria. Cepheid test negative. CXR shows no acute pulmonary process. Rib x-ray shows no acute fracture or displacement of right ribs. Abdomen/pelvis CT shows left lower lung nodule with recommendation for neoplasm workup. Otherwise no acute abdominal abnormality noted. Patient initially given normal saline, Zofran, Pepcid, Protonix and GI cocktail. Ativan also provided upon patient request due to history of PTSD. Additional Pepcid and Ativan later given. Patient discharged with Zofran starter pack. Pepcid and Zofran sent to patient's pharmacy. Advised follow-up with PCP for ongoing care and neoplasm workup. Undiagnosed new problem with uncertain prognosis? @ -No Drug Therapy requiring intensive monitoring for toxicity (Heparin, Nitro, Insulin, Cardizem)? @ -No Were any procedures done? @ -No Diagnosis/symptom? @ -Gastroenteritis, pulmonary nodule Acute, or Chronic, or Acute on Chronic? @ -Acute Uncomplicated (without systemic symptoms) or Complicated (systemic symptoms)? @ -Complicated Side effects of treatment? @ -No Exacerbation, Progression, or Severe Exacerbation? @ -No Poses a threat to life or bodily function? How? (Chest pain, USA, OR, pneumonia, PE, COPD, DKA, ARF, appy, cholecystitis, CVA, Diverticulitis, Homicidal, Suicidal, threat to staff... and all critical care pts) @ -No - Lab Data Result diagrams: 02/10/24 12:20 02/10/24 12:20 Lab Results 02/10/24 02/10/24 02/10/24 Range/Units 12:05 12:05 12:20 WBC 7.3 (3.8-10.6) k/uL RBC 4.96 (3.80-5.40) m/uL Hgb 14.2 (11.4-16.0) gm/dL Hct 41.0 (34.0-46.0) % MCV 82.6 (80.0-100.0) fL MCH 28.6 (25.0-35.0) pg MCHC 34.6 (31.0-37.0) g/dL RDW 13.1 (11.5-15.5) % Plt Count 289 (150-450) k/uL MPV 7.7 Neutrophils % 71 % Lymphocytes % 22 % Monocytes % 5 % Eosinophils % 1 % Basophils % 0 % Neutrophils # 5.1 (1.3-7.7) k/uL Lymphocytes # 1.6 (1.0-4.8) k/uL Monocytes # 0.4 (0-1.0) k/uL Eosinophils # 0.1 (0-0.7) k/uL Basophils # 0.0 (0-0.2) k/uL PT (10.0-12.5) sec INR (<1.2) APTT (22.0-30.0) sec Sodium (137-145) mmol/L Potassium (3.5-5.1) mmol/L Chloride (98-107) mmol/L Carbon Dioxide (22-30) mmol/L Anion Gap mmol/L BUN (7-17) mg/dL Creatinine (0.52-1.04) mg/dL Est GFR (CKD-EPI)AfAm (>60 ml/min/1.73 sqM) Est GFR (CKD-EPI)NonAf (>60 ml/min/1.73 sqM) Glucose (74-99) mg/dL Plasma Lactic Acid Fernando (0.7-2.0) mmol/L Calcium (8.4-10.2) mg/dL Total Bilirubin (0.2-1.3) mg/dL AST (14-36) U/L ALT (4-34) U/L Alkaline Phosphatase (38-126) U/L Troponin I (0.000-0.034) ng/mL Total Protein (6.3-8.2) g/dL Albumin (3.5-5.0) g/dL Amylase (30-110) U/L Lipase (23-300) U/L Urine Color Yellow Urine Appearance Clear (Clear) Urine pH 5.5 (5.0-8.0) Ur Specific [place] 1.040 H (1.001-1.035) Urine Protein 1+ H (Negative) Urine Glucose (UA) Negative (Negative) Urine Ketones 4+ H (Negative) Urine Blood Moderate H (Negative) Urine Nitrite Negative (Negative) Urine Bilirubin Negative (Negative) Urine Urobilinogen 2.0 (<2.0) mg/dL Ur Leukocyte Esterase Negative (Negative) Urine RBC 3 (0-5) /hpf Urine WBC 1 (0-5) /hpf Ur Squamous Epith Cells 2 (0-4) /hpf Hyaline Casts 1 (0-2) /lpf Urine Mucus Many H (None) /hpf Urine HCG, Qual Not Detected (Not Detectd) Influenza Type A (PCR) (Not Detectd) Influenza Type B (PCR) (Not Detectd) RSV (PCR) (Not Detectd) SARS-CoV-2 (PCR) (Not Detectd) 02/10/24 02/10/24 02/10/24 Range/Units 12:20 12:20 12:20 WBC (3.8-10.6) k/uL RBC (3.80-5.40) m/uL Hgb (11.4-16.0) gm/dL Hct (34.0-46.0) % MCV (80.0-100.0) fL MCH (25.0-35.0) pg MCHC (31.0-37.0) g/dL RDW (11.5-15.5) % Plt Count (150-450) k/uL MPV Neutrophils % % Lymphocytes % % Monocytes % % Eosinophils % % Basophils % % Neutrophils # (1.3-7.7) k/uL Lymphocytes # (1.0-4.8) k/uL Monocytes # (0-1.0) k/uL Eosinophils # (0-0.7) k/uL Basophils # (0-0.2) k/uL PT (10.0-12.5) sec INR (<1.2) APTT (22.0-30.0) sec Sodium 138 (137-145) mmol/L Potassium 4.2 (3.5-5.1) mmol/L Chloride 97 L (98-107) mmol/L Carbon Dioxide 28 (22-30) mmol/L Anion Gap 13 mmol/L BUN 14 (7-17) mg/dL Creatinine 0.62 (0.52-1.04) mg/dL Est GFR (CKD-EPI)AfAm >90 (>60 ml/min/1.73 sqM) Est GFR (CKD-EPI)NonAf >90 (>60 ml/min/1.73 sqM) Glucose 93 (74-99) mg/dL Plasma Lactic Acid Fernando 1.1 (0.7-2.0) mmol/L Calcium 10.2 (8.4-10.2) mg/dL Total Bilirubin 0.5 (0.2-1.3) mg/dL AST 23 (14-36) U/L ALT 36 H (4-34) U/L Alkaline Phosphatase 92 (38-126) U/L Troponin I (0.000-0.034) ng/mL Total Protein 7.8 (6.3-8.2) g/dL Albumin 5.3 H (3.5-5.0) g/dL Amylase 39 (30-110) U/L Lipase 62 (23-300) U/L Urine Color Urine Appearance (Clear) Urine pH (5.0-8.0) Ur Specific [place] (1.001-1.035) Urine Protein (Negative) Urine Glucose (UA) (Negative) Urine Ketones (Negative) Urine Blood (Negative) Urine Nitrite (Negative) Urine Bilirubin (Negative) Urine Urobilinogen (<2.0) mg/dL Ur Leukocyte Esterase (Negative) Urine RBC (0-5) /hpf Urine WBC (0-5) /hpf Ur Squamous Epith Cells (0-4) /hpf Hyaline Casts (0-2) /lpf Urine Mucus (None) /hpf Urine HCG, Qual (Not Detectd) Influenza Type A (PCR) Not Detected (Not Detectd) Influenza Type B (PCR) Not Detected (Not Detectd) RSV (PCR) Not Detected (Not Detectd) SARS-CoV-2 (PCR) Not Detected (Not Detectd) 02/10/24 02/10/24 Range/Units 12:20 12:20 WBC (3.8-10.6) k/uL RBC (3.80-5.40) m/uL Hgb (11.4-16.0) gm/dL Hct (34.0-46.0) % MCV (80.0-100.0) fL MCH (25.0-35.0) pg MCHC (31.0-37.0) g/dL RDW (11.5-15.5) % Plt Count (150-450) k/uL MPV Neutrophils % % Lymphocytes % % Monocytes % % Eosinophils % % Basophils % % Neutrophils # (1.3-7.7) k/uL Lymphocytes # (1.0-4.8) k/uL Monocytes # (0-1.0) k/uL Eosinophils # (0-0.7) k/uL Basophils # (0-0.2) k/uL PT 11.4 (10.0-12.5) sec INR 1.0 (<1.2) APTT 27.0 (22.0-30.0) sec Sodium (137-145) mmol/L Potassium (3.5-5.1) mmol/L Chloride (98-107) mmol/L Carbon Dioxide (22-30) mmol/L Anion Gap mmol/L BUN (7-17) mg/dL Creatinine (0.52-1.04) mg/dL Est GFR (CKD-EPI)AfAm (>60 ml/min/1.73 sqM) Est GFR (CKD-EPI)NonAf (>60 ml/min/1.73 sqM) Glucose (74-99) mg/dL Plasma Lactic Acid Fernando (0.7-2.0) mmol/L Calcium (8.4-10.2) mg/dL Total Bilirubin (0.2-1.3) mg/dL AST (14-36) U/L ALT (4-34) U/L Alkaline Phosphatase (38-126) U/L Troponin I <0.012 (0.000-0.034) ng/mL Total Protein (6.3-8.2) g/dL Albumin (3.5-5.0) g/dL Amylase (30-110) U/L Lipase (23-300) U/L Urine Color Urine Appearance (Clear) Urine pH (5.0-8.0) Ur Specific [place] (1.001-1.035) Urine Protein (Negative) Urine Glucose (UA) (Negative) Urine Ketones (Negative) Urine Blood (Negative) Urine Nitrite (Negative) Urine Bilirubin (Negative) Urine Urobilinogen (<2.0) mg/dL Ur Leukocyte Esterase (Negative) Urine RBC (0-5) /hpf Urine WBC (0-5) /hpf Ur Squamous Epith Cells (0-4) /hpf Hyaline Casts (0-2) /lpf Urine Mucus (None) /hpf Urine HCG, Qual (Not Detectd) Influenza Type A (PCR) (Not Detectd) Influenza Type B (PCR) (Not Detectd) RSV (PCR) (Not Detectd) SARS-CoV-2 (PCR) (Not Detectd) Disposition Clinical Impression: Gastroenteritis, Pulmonary nodule, GERD (gastroesophageal reflux disease) Disposition: HOME SELF-CARE Condition: Good Instructions (If sedation given, give patient instructions): Acute Nausea and Vomiting (ED) Prescriptions: Famotidine [Pepcid] 20 mg PO BID #30 tablet Ondansetron [Zofran] 4 mg PO Q8HR PRN #15 tab PRN Reason: Nausea Is patient prescribed a controlled substance at d/c from ED?: No Referrals: Alden Burgos MD [Primary Care Provider] - 1-2 days Sarah Rowell MD [STAFF PHYSICIAN] - 1-2 days Time of Disposition: 15:45
[2024-02-10] MEDS: SODIUM CHLORIDE 0.9% 1,000 ML IV STA (12:30)
[2024-02-10 12:31] LABS: Appearance,Urine Clear (Clear); Bilirubin,Urine Negative (Negative); Blood,Urine Moderate (Negative); Color,Urine Yellow; Glucose,Urine (UA) Negative (Negative); Hyaline Casts,Urine 1 /lpf (0-2); Ketones,Urine 4+ (Negative); Leukocyte Esterase,Urine Negative (Negative); Mucus,Urine Many /hpf; Nitrite,Urine Negative (Negative); PH, Urine 5.5 (5.0-8.0); Protein,Urine 1+ (Negative); RBC,Urine 3 /hpf (0-5); Squamous Epithelial Cell,Urine 2 /hpf (0-4); WBC,Urine 1 /hpf (0-5)
[2024-02-10] MEDS: FAMOTIDINE 20 MG/2 ML VIAL IV STA ×2 (12:31→15:43)
[2024-02-10] MEDS: MAG HYDROX/AL HYDROX/SIMETH 30 ML, HYOSCYAMINE ELIXIR 10 ML, LIDOCAINE VISCOUS 2% 10 ML PO STA (12:32)
[2024-02-10] MEDS: PANTOPRAZOLE 40 MG/10 ML VIAL IVP STA (12:33)
[2024-02-10] MEDS: ONDANSETRON 4 MG/2 ML VIAL IVP STA (12:34)
[2024-02-10] MEDS: LORazepam 2 MG/ML INJ IV STA ×2 (12:34→15:43)
[2024-02-10 12:38] LABS: Basophils % (A) 0 %; Eosinophils # (A) 0.1 k/uL (0-0.7); Eosinophils % (A) 1 %; HGB 14.2 gm/dL (11.4-16.0); Lymphocytes # (A) 1.6 k/uL (1.0-4.8); Lymphocytes % (A) 22 %; MCH 28.6 pg (25.0-35.0); MCHC 34.6 g/dL (31.0-37.0); MCV 82.6 fL (80.0-100.0); Mean Platelet Volume 7.7; Monocytes # (A) 0.4 k/uL (0-1.0); Monocytes % (A) 5 %; Neutrophils # (A) 5.1 k/uL (1.3-7.7); Neutrophils % (A) 71 %; Platelet Count 289 k/uL (150-450); RBC 4.96 m/uL (3.80-5.40); RDW 13.1 % (11.5-15.5); WBC 7.3 k/uL (3.8-10.6)
--- NOTE | 2024-02-10 12:41 | XR ---
EXAMINATION TYPE: XR chest 2V DATE OF EXAM: 02/10/2024 12:29 PM COMPARISON: None. CLINICAL INDICATION: Female, 43 years old with history of Dorsal chest pain, right-sided chest pain, vomiting TECHNIQUE: XR chest 2V view(s) obtained. FINDINGS: The heart size is normal. The pulmonary vasculature is normal. The lungs are clear. No pneumothorax evident. IMPRESSION: 1. No acute pulmonary process. [facility], Workstation: [facility], 02/10/2024 12:38 PM
--- NOTE | 2024-02-10 12:42 | XR ---
EXAMINATION TYPE: XR ribs RT DATE OF EXAM: 02/10/2024 12:29 PM COMPARISON: None. CLINICAL INDICATION: Female, 43 years old with history of Right dorsal rib pain due to vomiting, pain TECHNIQUE: 2 view(s) obtained. FINDINGS: Right ribs appear intact. No displaced rib fractures are identified. No pneumothorax is evident on th jaimie images IMPRESSION: 1. Normal two-view right ribs [facility], Workstation: [facility], 02/10/2024 12:40 PM
[2024-02-10 12:48] LABS: Prothrombin Time 11.4 sec (10.0-12.5)
[2024-02-10 13:02] LABS: ALT 36 U/L (4-34); AST 23 U/L (14-36); African American GFR (CKD) >90 (>60 ml/min/1.73 sqM); Albumin 5.3 g/dL (3.5-5.0); Alkaline Phosphatase 92 U/L (38-126); Amylase 39 U/L (30-110); Anion Gap 13 mmol/L; Blood Urea Nitrogen 14 mg/dL (7-17); Calcium 10.2 mg/dL (8.4-10.2); Carbon Dioxide 28 mmol/L (22-30); Chloride 97 mmol/L (98-107); Glucose 93 mg/dL (74-99); Lipase 62 U/L (23-300); Non-African American GFR(CKD) >90 (>60 ml/min/1.73 sqM); Potassium 4.2 mmol/L (3.5-5.1); Sodium 138 mmol/L (137-145); Total Bilirubin 0.5 mg/dL (0.2-1.3); Total Protein 7.8 g/dL (6.3-8.2)
[2024-02-10] MEDS: diphenhydrAMINE 50 MG/ML 1 ML VIAL IVP STA (13:16)
[2024-02-10] MEDS: methylPREDNISolone SOD SUCCI 125 MG/2 ML VIAL IV STA (13:20)
--- NOTE | 2024-02-10 14:23 | CT ---
EXAMINATION TYPE: CT abdomen pelvis w con DATE OF EXAM: 02/10/2024 1:55 PM COMPARISON: None. CLINICAL INDICATION: Female, 43 years old with history of Nausea/vomiting, difficulty passing gas/sto ol, ABD PAIN TECHNIQUE: Axial images were obtained from above the diaphragm to the pubic rami in the axial plane a t 5 mm thick sections. Reconstructed images are reviewed on the computer in the coronal plane. CONTRAST: 100 mL of Isovue 300. Study performed without Oral Contrast DLP: 844.5 mGycm, Automated exposure control for dose reduction was used. FINDINGS: Limited CT sections are obtained the lung bases. There is a 1.3 cm nodule in the posterior left lung base. This may have a central calcification which may be a granuloma. Additional workup however is r ecommended for possible neoplasm. CT ABDOMEN: Liver: Normal Spleen: Normal Pancreas: Normal Adrenal glands: The adrenal glands are normal. Gallbladder: Surgically absent Kidneys: No masses are evident. No hydronephrosis is present. No cysts are present. Delayed images were obtained through the kidneys, which remain unremarkable. Aorta: Normal Inferior vena cava: Normal. CT PELVIS: Loops of bowel within the abdomen and pelvis are normal. There appears to be some oral contrast p resent. Distention of bowel loops however is not present. Appendix: Not clearly identified. No dilated tubular structure or inflammatory changes evident. Urinary bladder: Normal. Genitourinary structures: Uterus and ovaries are not identified Osseous structures: No suspicious lytic or sclerotic lesions. IMPRESSION: 1. Nodule left lower lung base. Workup for neoplasm is recommended. 2. No suspicious acute abdomen abnormality [facility], Workstation: [facility], 02/10/2024 2:20 PM
[2024-02-10] MEDS: ONDANSETRON 4 MG ODT STARTER PACK 2 TAB BTL PO STA (15:52)
[2024-02-10 15:57] VITALS: BP 111/70; PULSE 61; RESP 18; TEMP 98.1
== END 2024-02-10 15:57 | disposition home or self-care (01) ==
LOC: EC 10:16
DX: K52.9 Noninfective gastroenteritis and colitis, unspecified (principal); K21.9 Gastro-esophageal reflux disease without esophagitis; R91.1 Solitary pulmonary nodule; F43.10 Post-traumatic stress disorder, unspecified; F17.290 Nicotine dependence, other tobacco product, uncomplicated; Z88.1 Allergy status to other antibiotic agents; Z88.2 Allergy status to sulfonamides; Z88.5 Allergy status to narcotic agent; Z91.041 Radiographic dye allergy status; Z88.8 Allergy status to other drugs, medicaments and biological substances
CPT/HCPCS: 36415; 93005; 80053; 82150; 83605; 83690; 84484; 85025; 85610; 85730; 81001; 81025; 87636; 71100; 71046; 74177; 99285; 96374; 96375 ×5; 96376 ×2; 96361; J2060; J1200; J2405; J3490; S0119; Q9967; J2919; J2470

== ENCOUNTER 2024-03-09 07:49 | Day surgery (SDC) | payer OTHER ==
[2024-03-03 13:55] VITALS: BMI 25.7
--- NOTE | 2024-03-09 07:29 | P.GSHP ---
History of Present Illness H&P Date: 03/09/24 CHIEF COMPLAINT: GERD and colon screen HISTORY OF PRESENT ILLNESS: The patient is a 43-year-old female who presents with gastroesophageal reflux disease and need for colon screen. Upper and lower endoscopy were offered for further evaluation and management. PAST MEDICAL HISTORY: Please see list. PAST SURGICAL HISTORY: Please see list. MEDICATIONS: Please see list. ALLERGIES: Please see list. SOCIAL HISTORY: No illicit drug use FAMILY HISTORY: No reports of Crohn disease or ulcerative colitis. REVIEW OF ORGAN SYSTEMS: CONSTITUTIONAL: No reports of fevers or chills. GI: Denies any blood in stools or constipation. PHYSICAL EXAM: VITAL SIGNS: Stable GENERAL: Well-developed pleasant in no acute distress. HEENT: No scleral icterus. Extraocular movements grossly intact. Moist buccal mucosa. NECK: Supple without lymphadenopathy. CHEST: Unlabored respirations. Equal bilateral excursions. CARDIOVASCULAR: Regular rate and rhythm. Distal 2+ pulses. ABDOMEN: Soft, nondistended. MUSCULOSKELETAL: No clubbing, cyanosis, or edema. ASSESSMENT: 1. Gastroesophageal reflux disease 2. Colon screen. PLAN: 1. Recommend proceeding with an upper and lower endoscopy Past Medical History Past Medical History: Asthma, GERD/Reflux, Hyperlipidemia, Seizure Disorder Additional Past Medical History / Comment(s): Last seizure 10 years ago, has BRCA-1 gene. History of Any Multi-Drug Resistant Organisms: None Reported Date of last positivie culture/infection: 08/06/21 ESBL E.coli MDRO Source:: Urine Past Surgical History: Appendectomy, Cholecystectomy, Hysterectomy Additional Past Surgical History / Comment(s): rt arm surgery abcess removal, L leg abscess removal. Past Anesthesia/Blood Transfusion Reactions: No Reported Reaction Additional Past Anesthesia/Blood Transfusion Reaction / Comment(s): No history of blood transfusion reactions. Smoking Status: Former smoker, Vaper - Past Family History Sister(s) Family Medical History: Cancer Additional Family Medical History / Comment(s): Breast cancer, colon cancer Mother Family Medical History: Cancer Additional Family Medical History / Comment(s): Mother passed from breast cancer. Medications and Allergies Home Medications Medication Instructions Recorded Confirmed Type ALPRAZolam [Xanax] 0.5 mg PO TID PRN 03/03/24 03/03/24 History Buprenorphine HCl/Naloxone HCl 1 each SL TID 03/03/24 03/03/24 History [Suboxone 8 mg-2 mg Sl Film] Dextroamphetamine/Amphetamine 20 mg PO BID 03/03/24 03/03/24 History [Adderall] Famotidine [Pepcid] 20 mg PO DAILY 03/03/24 03/03/24 History Ibuprofen 800 mg PO Q8H PRN 03/03/24 03/03/24 History QUEtiapine [SEROquel] 300 mg PO HS 03/03/24 03/03/24 History Rosuvastatin [Crestor] 20 mg PO HS 03/03/24 03/03/24 History Allergies Allergy/AdvReac Type Severity Reaction Status Date / Time Iodinated Contrast Media Allergy Severe Anaphylaxis Verified 03/03/24 12:52 shellfish derived [Shellfish] Allergy Severe Anaphylaxis Verified 03/03/24 12:53 sulfamethoxazole AdvReac Mild Diarrhea Verified 03/03/24 12:52 [From Bactrim] trimethoprim [From Bactrim] AdvReac Mild Diarrhea Verified 03/03/24 12:52 Opioids - Morphine Analogues AdvReac Does not Verified 03/03/24 12:52 want Opioids-Meperidine and AdvReac Does not Verified 03/03/24 12:52 Related want Opioids-Methadone and Related AdvReac Does not Verified 03/03/24 12:52 want
[~2024-03-09 07:49] MED LIST changes: +LACTATED RINGERS 1,000 ML IV SCH; +LIDOCAINE 1% (10MG/ML) FOR IV START INTRADERMA PRN; +MIDAZOLAM 2 MG/2 ML VIAL IV PRN; -VANCOMYCIN 1,000 MG in SODIUM CHLORIDE 0.9% 250 ML IVPB SCH
[2024-03-09] MEDS: IV FLUID CONTINUATION 1,000 ML IV ONE (08:09)
[2024-03-09 08:18] VITALS: RESP 16; TEMP 97.5
[2024-03-09] MEDS ORDERED: PROPOFOL 10 MG/ML 20 ML VIAL IV ONE (09:39)
[2024-03-09] MEDS ORDERED: LIDOCAINE 2% (PF) 20 MG/ML 5 ML VIAL ONE (09:39)
--- NOTE | 2024-03-09 10:01 | P.PCN ---
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 INDICATIONS: The patient is a 43-year-old female who presents with reflux disease including predisposition for gastrointestinal malignancies due to genetics. Benefits and risks of the procedure were described. Informed consent was obtained. DESCRIPTION: The patient was brought into the endoscopy suite and laid in the left lateral decubitus position. An Olympus gastroscope was passed along the posterior oropharynx down to the distal esophagus where the squamocolumnar junction was encountered at 37 cm from the incisors. The stomach was entered and no bile reflux was found. Additional findings are listed below. Biopsies with cold forceps were obtained of the antrum. The first through third portion of the duodenum was examined. Retroflexion of the scope confirmed Hill grade 3 lower esophageal valve. The squamocolumnar junction demonstrated LA grade B erosive esophagitis. The stomach was desufflated. The patient tolerated the procedure well. FINDINGS: Squamocolumnar junction 37 cm from the incisors. Diaphragmatic hiatus at 37 cm. Hill grade 3 lower esophageal valve. LA grade B erosive esophagitis with acute gastroesophageal junction ulcer with bleeding, biopsies obtained. Biopsies obtained of the duodenum. Acute gastritis with bleeding gastric cardia Chronic gastritis with biopsies obtained. RECOMMENDATIONS: Omeprazole 40 mg daily for 2 weeks
--- NOTE | 2024-03-09 10:16 | P.PCN ---
Date of Procedure: 03/09/24 Description of Procedure: PREOPERATIVE DIAGNOSIS: Family history of gastrointestinal malignancy BRCA gene 1 mutation Colonoscopy screening. POSTOPERATIVE DIAGNOSIS: Poor prep OPERATION: Colonoscopy to the sigmoid colon. SURGEON: Nadya Ramesh MD. ANESTHESIA: MAC. INDICATIONS: The patient is a 43-year-old female who presents for first colonoscopy screening. Benefits and risks were described and informed consent was obtained. DESCRIPTION OF PROCEDURE: The patient had undergone GoLytely prep. She had been brought into the operating room and laid in the left lateral decubitus position. After adequate intravenous sedation, the rectum was examined with 2% lidocaine jelly. No external hemorrh oids were encountered. The rectal tone was loose. No lesions were palpated in the rectal vault. An Olympus colonoscope was advanced along the rectum with moderate brown liquid stool prohibiting visualization of mucosa to the sigmoid. The scope was removed due to extremely poor prep. The colon was desufflated. The patient had tolerated the procedure well. Withdrawal time was over 6 minutes. FINDINGS: [place] preparation quality scale 4+ (1-5) Very poor prep with discontinuance of procedure RECOMMENDATIONS: Lactulose 30 g x 1 dose with clear liquid diet today. Recommend attempting colonoscopy tomorrow Plan - Discharge Summary Discharge Rx Participant: No New Discharge Prescriptions: New Omeprazole [PriLOSEC] 40 mg PO DAILY #14 cap Lactulose 30 ml PO BID #500 ml Continue Famotidine [Pepcid] 20 mg PO DAILY Buprenorphine HCl/Naloxone HCl [Suboxone 8 mg-2 mg Sl Film] 1 each SL TID Rosuvastatin [Crestor] 20 mg PO HS QUEtiapine [SEROquel] 300 mg PO HS ALPRAZolam [Xanax] 0.5 mg PO TID PRN PRN Reason: Anxiety Dextroamphetamine/Amphetamine [Adderall] 20 mg PO BID Discontinued Ibuprofen 800 mg PO Q8H PRN PRN Reason: Pain Discharge Medication List ALPRAZolam [Xanax] 0.5 mg PO TID PRN 03/03/24 [History] Buprenorphine HCl/Naloxone HCl [Suboxone 8 mg-2 mg Sl Film] 1 each SL TID 03/03/24 [History] Dextroamphetamine/Amphetamine [Adderall] 20 mg PO BID 03/03/24 [History] Famotidine [Pepcid] 20 mg PO DAILY 03/03/24 [History] QUEtiapine [SEROquel] 300 mg PO HS 03/03/24 [History] Rosuvastatin [Crestor] 20 mg PO HS 03/03/24 [History] Lactulose 30 ml PO BID #500 ml 03/09/24 [Rx] Omeprazole [PriLOSEC] 40 mg PO DAILY #14 cap 03/09/24 [Rx] Follow up Appointment(s)/Referral(s): Nadya Ramesh MD [STAFF PHYSICIAN] - 03/10/24 ([facility] for completion colonoscopy) Patient Instructions/Handouts: Clear Liquid Diet (DC) Activity/Diet/Wound Care/Special Instructions: Continue clear liquid diet today for colonoscopy tomorrow Discharge Disposition: HOME SELF-CARE
[2024-03-09 10:21] VITALS: BP 125/82; PULSE 76
[2024-03-09] MEDS: LACTULOSE 20 GM/30 ML CUP PO STA (10:37)
== END 2024-03-09 10:45 | disposition home or self-care (01) ==
LOC: ORWHC2ENDO 07:49
PROVIDERS: ATTEND Surgery Plastic and Reconstructive Surgery
DX: Z12.11 Encounter for screening for malignant neoplasm of colon (principal); K29.50 Unspecified chronic gastritis without bleeding; K29.01 Acute gastritis with bleeding; K21.00 Gastro-esophageal reflux disease with esophagitis, without bleeding; K44.9 Diaphragmatic hernia without obstruction or gangrene; E66.9 Obesity, unspecified; F41.9 Anxiety disorder, unspecified; F90.9 Attention-deficit hyperactivity disorder, unspecified type; J95.851 Ventilator associated pneumonia; Z68.30 Body mass index [BMI] 30.0-30.9, adult; Z86.0100 Personal history of colon polyps, unspecified; Z15.09 Genetic susceptibility to other malignant neoplasm; Z80.0 Family history of malignant neoplasm of digestive organs; Z90.710 Acquired absence of both cervix and uterus; Z90.49 Acquired absence of other specified parts of digestive tract; Z87.891 Personal history of nicotine dependence; Z80.3 Family history of malignant neoplasm of breast; Z91.041 Radiographic dye allergy status; Z88.2 Allergy status to sulfonamides; Z88.1 Allergy status to other antibiotic agents; Z88.5 Allergy status to narcotic agent; Z79.1 Long term (current) use of non-steroidal anti-inflammatories (NSAID); Z79.899 Other long term (current) drug therapy; E78.5 Hyperlipidemia, unspecified
CPT/HCPCS: 88305; 88312; 43239; 45330; J2704; J2003

== ENCOUNTER 2024-03-10 07:58 | Day surgery (SDC) | payer OTHER ==
[2024-03-10 08:17] VITALS: TEMP 97.9
[2024-03-10] MEDS: IV FLUID CONTINUATION 1,000 ML IV ONE (08:22)
[2024-03-10] MEDS: LACTATED RINGERS 1,000 ML BAG IV STA (08:24)
[2024-03-10] MEDS ORDERED: PROPOFOL 10 MG/ML 20 ML VIAL IV ONE (08:59)
--- NOTE | 2024-03-10 09:34 | P.PCN ---
Date of Procedure: 03/10/24 Description of Procedure: PREOPERATIVE DIAGNOSIS: Colonoscopy screening. History of poor bowel prep yesterday POSTOPERATIVE DIAGNOSIS: Severe constipation with poor bowel prep OPERATION: Colonoscopy to the ascending colon including colonic irrigation 1000 cc SURGEON: Nadya Ramesh MD. ANESTHESIA: MAC. INDICATIONS: The patient is a 43-year-old female who presents for colonoscopy screening. Attempted colonoscopy yesterday demonstrated poor bowel prep. Benefits and risks were described and informed consent was obtained. DESCRIPTION OF PROCEDURE: The patient had undergone 2-day clear liquid diet including lactulose and GoLytely prep. The patient had been brought into the operating room and laid in the left lateral decubitus position. After adequate intravenous sedation, the rectum was examined with 2% lidocaine jelly. No external hemorrhoids were encountered. The rectal tone was within normal limits. No lesions were palpated in the rectal vault. An Olympus colonoscope was advanced with over 1000 cc normal saline irrigation to address severely poor bowel prep. The prep was poor despite bowel irrigation. No large tumors over 2 cm were identified however moderate limitation of mucosal investigation due to poor prep. The colon was desufflated. The patient had tolerated the procedure well. Withdrawal time was over 6 minutes. FINDINGS: [place] preparation quality scale 4+ (1-5) despite irrigation 1 L normal saline Internal hemorrhoids, grade 1 No external prolapsed hemorrhoids. Nondiagnostic colonoscopy due to severe constipation and poor prep RECOMMENDATIONS: Lower endoscopy in 6 months with 1 week colonic prep, July 2024 Plan - Discharge Summary Discharge Rx Participant: No New Discharge Prescriptions: No Action Famotidine [Pepcid] 20 mg PO DAILY Buprenorphine HCl/Naloxone HCl [Suboxone 8 mg-2 mg Sl Film] 1 each SL TID Rosuvastatin [Crestor] 20 mg PO HS Omeprazole [PriLOSEC] 40 mg PO DAILY #14 cap QUEtiapine [SEROquel] 300 mg PO HS ALPRAZolam [Xanax] 0.5 mg PO TID PRN PRN Reason: Anxiety Dextroamphetamine/Amphetamine [Adderall] 20 mg PO BID Lactulose 30 ml PO BID #500 ml Discharge Medication List ALPRAZolam [Xanax] 0.5 mg PO TID PRN 03/03/24 [History] Buprenorphine HCl/Naloxone HCl [Suboxone 8 mg-2 mg Sl Film] 1 each SL TID 03/03/24 [History] Dextroamphetamine/Amphetamine [Adderall] 20 mg PO BID 03/03/24 [History] Famotidine [Pepcid] 20 mg PO DAILY 03/03/24 [History] QUEtiapine [SEROquel] 300 mg PO HS 03/03/24 [History] Rosuvastatin [Crestor] 20 mg PO HS 03/03/24 [History] Lactulose 30 ml PO BID #500 ml 03/09/24 [Rx] Omeprazole [PriLOSEC] 40 mg PO DAILY #14 cap 03/09/24 [Rx]
--- NOTE | 2024-03-10 09:35 | P.GSHP ---
History of Present Illness H&P Date: 03/10/24 CHIEF COMPLAINT: Colon screen HISTORY OF PRESENT ILLNESS: The patient is a 43-year-old female who presents for colon screen. Yesterday colonoscopy was nondiagnostic and withdrawn as severe stool was found within the sigmoid colon. Additional prep was given. Lower endoscopy was offered for further evaluation and management. PAST MEDICAL HISTORY: Please see list. PAST SURGICAL HISTORY: Please see list. MEDICATIONS: Please see list. ALLERGIES: Please see list. SOCIAL HISTORY: No illicit drug use FAMILY HISTORY: No reports of Crohn disease or ulcerative colitis. REVIEW OF ORGAN SYSTEMS: CONSTITUTIONAL: No reports of fevers or chills. PHYSICAL EXAM: VITAL SIGNS: Stable GENERAL: Well-developed pleasant in no acute distress. HEENT: No scleral icterus. Extraocular movements grossly intact. Moist buccal mucosa. NECK: Supple without lymphadenopathy. CHEST: Unlabored respirations. Equal bilateral excursions. CARDIOVASCULAR: Regular rate and rhythm. Distal 2+ pulses. ABDOMEN: Soft, nontender, nondistended. MUSCULOSKELETAL: No clubbing, cyanosis, or edema. ASSESSMENT: 1. Colon screen. PLAN: 1. Recommend proceeding with a lower endoscopy Past Medical History Past Medical History: Asthma, GERD/Reflux, Hyperlipidemia, Seizure Disorder Additional Past Medical History / Comment(s): last seizure 10 yrs. ago, has BRCA-1 gene History of Any Multi-Drug Resistant Organisms: ESBL Date of last positivie culture/infection: 08/06/21 ESBL E.coli MDRO Source:: Urine Past Surgical History: Appendectomy, Cholecystectomy, Hysterectomy, Orthopedic Surgery Additional Past Surgical History / Comment(s): rt arm surgery abscess removal, l leg abscess removal, EGD today Past Anesthesia/Blood Transfusion Reactions: No Reported Reaction Additional Past Anesthesia/Blood Transfusion Reaction / Comment(s): no transfusion reactions Past Psychological History: Anxiety, Bipolar, Depression, PTSD Smoking Status: Former smoker, Vaper Past Alcohol Use History: None Reported Past Drug Use History: Opiates Additional Drug Use History / Comment(s): past addiction, takes suboxone daily for tx. - Past Family History Mother Family Medical History: Cancer Additional Family Medical History / Comment(s): breast Sister(s) Family Medical History: Cancer Medications and Allergies Home Medications Medication Instructions Recorded Confirmed Type ALPRAZolam [Xanax] 0.5 mg PO TID PRN 03/03/24 03/10/24 History Buprenorphine HCl/Naloxone HCl 1 each SL TID 03/03/24 03/10/24 History [Suboxone 8 mg-2 mg Sl Film] Dextroamphetamine/Amphetamine 20 mg PO BID 03/03/24 03/10/24 History [Adderall] Famotidine [Pepcid] 20 mg PO DAILY 03/03/24 03/10/24 History QUEtiapine [SEROquel] 300 mg PO HS 03/03/24 03/10/24 History Rosuvastatin [Crestor] 20 mg PO HS 03/03/24 03/10/24 History Lactulose 30 ml PO BID #500 ml 03/09/24 03/10/24 Rx Omeprazole [PriLOSEC] 40 mg PO DAILY #14 cap 03/09/24 03/10/24 Rx Allergies Allergy/AdvReac Type Severity Reaction Status Date / Time Iodinated Contrast Media Allergy Severe Anaphylaxis Verified 03/10/24 08:11 shellfish derived [Shellfish] Allergy Severe Anaphylaxis Verified 03/10/24 08:11 sulfamethoxazole AdvReac Mild Diarrhea Verified 03/10/24 08:11 [From Bactrim] trimethoprim [From Bactrim] AdvReac Mild Diarrhea Verified 03/10/24 08:11 Opioids - Morphine Analogues AdvReac Does not Verified 03/10/24 08:11 want Opioids-Meperidine and AdvReac Does not Verified 03/10/24 08:11 Related want Opioids-Methadone and Related AdvReac Does not Verified 03/10/24 08:11 want Surgical - Exam Vital Signs Temp Pulse Resp BP Pulse Ox 97.9 F 67 14 107/61 96 03/10/24 08:14 03/10/24 08:14 03/10/24 08:14 03/10/24 08:14 03/10/24 08:14
[2024-03-10 09:51] VITALS: BP 109/73; PULSE 77; RESP 18
== END 2024-03-10 10:00 | disposition home or self-care (01) ==
LOC: ORWHC2ENDO 07:58
PROVIDERS: ATTEND Surgery Plastic and Reconstructive Surgery
DX: Z12.11 Encounter for screening for malignant neoplasm of colon (principal); K59.00 Constipation, unspecified; K64.0 First degree hemorrhoids; J45.909 Unspecified asthma, uncomplicated; E78.5 Hyperlipidemia, unspecified; K21.9 Gastro-esophageal reflux disease without esophagitis; F41.9 Anxiety disorder, unspecified; G40.909 Epilepsy, unspecified, not intractable, without status epilepticus; F43.10 Post-traumatic stress disorder, unspecified; F31.9 Bipolar disorder, unspecified; F17.290 Nicotine dependence, other tobacco product, uncomplicated; Z91.041 Radiographic dye allergy status; Z90.49 Acquired absence of other specified parts of digestive tract; Z90.710 Acquired absence of both cervix and uterus; Z98.890 Other specified postprocedural states; Z88.1 Allergy status to other antibiotic agents; Z88.2 Allergy status to sulfonamides; Z88.5 Allergy status to narcotic agent; Z79.899 Other long term (current) drug therapy
CPT/HCPCS: 45378; J2704

== ENCOUNTER 2024-04-18 16:47 | Emergency (ER) | payer OTHER ==
[2024-04-18 16:56] VITALS: TEMP 99.1
[2024-04-18] MEDS: KETOROLAC 15 MG/ML 1 ML VIAL IM STA (17:33)
--- NOTE | 2024-04-18 17:54 | XR ---
EXAMINATION TYPE: XR ankle complete LT DATE OF EXAM: 04/18/2024 COMPARISON: NONE HISTORY: Pain, injury TECHNIQUE: 3 views of the left ankle are submitted for evaluation. FINDINGS/IMPRESSION: Acute minimally displaced comminuted fracture of the tip of the lateral malleolu s. Ankle mortise is intact. Mild soft tissue swelling of the ankle most pronounced over the lateral m alleolus. [facility], , 04/18/2024 5:52 PM
--- NOTE | 2024-04-18 19:01 | ED ---
Lower Extremity Injury HPI - General Chief Complaint: Extremity Injury, Lower Stated Complaint: Fall, left leg injury Time Seen by Provider: 04/18/24 16:57 Source: patient Mode of arrival: ambulatory Limitations: no limitations - History of Present Illness Initial Comments: 43-year-old female presenting with chief complaint of left foot and ankle pain. Patient reports that 3 days ago she was walking when she twisted her ankle due to uneven concrete. She states she did not have immediate pain, she got home and had some swelling in her ankle. She has been elevating and taking Motrin and Tylenol and using heat and ice. However the pain seems to be getting worse and she is having increasing difficulty ambulating. States that the swelling and bruising is getting worse as well. Mainly over the lateral malleolus. No numbness or tingling. - Related Data Home Medications Medication Instructions Recorded Confirmed ALPRAZolam [Xanax] 0.5 mg PO TID PRN 03/03/24 03/10/24 Buprenorphine HCl/Naloxone HCl 1 each SL TID 03/03/24 03/10/24 [Suboxone 8 mg-2 mg Sl Film] Dextroamphetamine/Amphetamine 20 mg PO BID 03/03/24 03/10/24 [Adderall] Famotidine [Pepcid] 20 mg PO DAILY 03/03/24 03/10/24 QUEtiapine [SEROquel] 300 mg PO HS 03/03/24 03/10/24 Rosuvastatin [Crestor] 20 mg PO HS 03/03/24 03/10/24 Previous Rx's Medication Instructions Recorded Lactulose 30 ml PO BID #500 ml 03/09/24 Omeprazole [PriLOSEC] 40 mg PO DAILY #14 cap 03/09/24 Allergies Allergy/AdvReac Type Severity Reaction Status Date / Time Iodinated Contrast Media Allergy Severe Anaphylaxis Verified 04/18/24 16:56 shellfish derived [Shellfish] Allergy Severe Anaphylaxis Verified 04/18/24 16:56 sulfamethoxazole AdvReac Mild Diarrhea Verified 04/18/24 16:56 [From Bactrim] trimethoprim [From Bactrim] AdvReac Mild Diarrhea Verified 04/18/24 16:56 Opioids - Morphine Analogues AdvReac Does not Verified 04/18/24 16:56 want Opioids-Meperidine and AdvReac Does not Verified 04/18/24 16:56 Related want Opioids-Methadone and Related AdvReac Does not Verified 04/18/24 16:56 want Review of Systems ROS Statement: Those systems with pertinent positive or pertinent negative responses have been documented in the HPI. ROS Other: All systems not noted in ROS Statement are negative. Past Medical History Past Medical History: Asthma, GERD/Reflux, Hyperlipidemia, Seizure Disorder Additional Past Medical History / Comment(s): last seizure 10 yrs. ago, has BRCA-1 gene History of Any Multi-Drug Resistant Organisms: ESBL Date of last positivie culture/infection: 08/06/21 ESBL E.coli MDRO Source:: Urine Past Surgical History: Appendectomy, Cholecystectomy, Hysterectomy, Orthopedic Surgery Additional Past Surgical History / Comment(s): rt arm surgery abscess removal, l leg abscess removal, EGD today Past Anesthesia/Blood Transfusion Reactions: No Reported Reaction Additional Past Anesthesia/Blood Transfusion Reaction / Comment(s): no transfusion reactions Past Psychological History: Anxiety, Bipolar, Depression, PTSD Smoking Status: Former smoker, Vaper Past Alcohol Use History: None Reported Past Drug Use History: None Reported - Past Family History Sister(s) Family Medical History: Cancer Mother Family Medical History: Cancer Additional Family Medical History / Comment(s): breast General Exam Limitations: no limitations General appearance: alert, in no apparent distress Head exam: Present: atraumatic, normocephalic, normal inspection Eye exam: Present: normal appearance, EOMI Neck exam: Present: normal inspection. Absent: meningismus Respiratory exam: Absent: respiratory distress Left Ankle exam: Present: tenderness, swelling, ecchymosis. Absent: full ROM, deformity Foot/Toe exam: Present: full ROM, tenderness, swelling Neurovascular tendon exam: Present: no vascular compromise Neurological exam: Present: alert, oriented X3 Psychiatric exam: Present: normal affect, normal mood Skin exam: Present: warm, dry Course Vital Signs 04/18/24 04/18/24 16:54 19:11 Temperature 99.1 F Pulse Rate 120 H 112 H Respiratory 16 18 Rate Blood Pressure 116/79 127/69 O2 Sat by Pulse 94 L 93 L Oximetry Procedures - Orthopedic Splinting/Casting Injury #1 Side: left Lower Extremity Injury Location: short leg Lower Extremity Immobilizer: stirrup splint Medical Decision Making - Medical Decision Making Was pt. sent in by a medical professional or institution (Dr., PA, COOK CANDY, urgent care, hospital, or care home...) When possible be specific @ -No Did you speak to anyone other than the patient for history (EMS, parent, family, police, friend...)? What history was obtained from this source @ -No Did you review nursing and triage notes (agree or disagree)? Why? @ -I reviewed and agree with nursing and triage notes Were old charts reviewed (outside hosp., previous admission, EMS record, old EKG, old radiological studies, urgent care reports/EKG's, care home records)? Report findings @ -No old charts were reviewed Differential Diagnosis (chest pain, altered mental status, abdominal pain women, abdominal pain men, vaginal bleeding, weakness, fever, dyspnea, syncope, headache, dizziness, GI bleed, back pain, seizure, CVA, palpatations, mental health, musculoskeletal)? Differential Musculoskeletal Muscular strain, contusion, ligament sprain, fracture, arthritis, septic arthritis, bursitis, cellulitis, muscle spasm, nerve compression, DVT, arterial occlusion, herpes zoster, electrolyte abnormality, tumor.... This is not meant to be in all inclusive list EKG interpreted by me (3pts min.). @ -As above X-rays interpreted by me (1pt min.). @ -X-ray shows acute minimally displaced comminuted fracture of the tip of the lateral malleolus. Ankle mortise is intact. Mild soft tissue swelling of the ankle most pronounced over the lateral malleolus CT interpreted by me (1pt min.). @ -None done U/S interpreted by me (1pt. min.). @ -None done What testing was considered but not performed or refused? (CT, X-rays, U/S, labs)? Why? @ -None What meds were considered but not given or refused? Why? @ -None Did you discuss the management of the patient with other professionals (jazmin bernal i.e. JADA Dai, COOK CANDY, lab, RT, psych nurse, hospital social worker, knockdown man, teacher, restoration officer, social work case manager)? Give summary @ -No Was smoking cessation discussed for >3mins.? @ -No Was critical care preformed (if so, how long)? @ -No Were there social determinants of health that impacted care today? How? (Homelessness, low income, unemployed, alcoholism, drug addiction, transportation, low edu. Level, literacy, decrease access to med. care, long-term, rehab)? @ -No Was there de-escalation of care discussed even if they declined (Discuss DNR or withdrawal of care, Hospice)? DNR status @ -No What co-morbidities impacted this encounter? (DM, HTN, Smoking, COPD, CAD, Cancer, CVA, ARF, Chemo, Hep., AIDS, mental health diagnosis, sleep apnea, morbid obesity)? @ -None Was patient admitted / discharged? Hospital course, mention meds given and route, prescriptions, significant lab abnormalities, going to OR and other pertinent info. @ -43-year-old female presenting with chief complaint of left ankle injury 3 days ago that is getting worse. History and physical examination are conducted. The patient is neurovascularly intact. X-ray shows acute minimally displaced comminuted fracture of the tip of the lateral malleolus. Patient was placed in a stirrup splint and provided with crutches. Instructed to remain nonweightbearing and follow-up with orthopedics. Educated on supportive manag ement at home. Follow-up with PCP. Report back to ER with any new or worsening symptoms. Discussed return parameters and answered all questions. Patient conveyed verbal understanding and agreed to the plan. I discussed this case in detail with my attending Dr. Estrada Undiagnosed new problem with uncertain prognosis? @ -No Drug Therapy requiring intensive monitoring for toxicity (Heparin, Nitro, Insulin, Cardizem)? @ -No Were any procedures done? @ -Stirrup splint applied Diagnosis/symptom? @ -Lateral malleolus fracture Acute, or Chronic, or Acute on Chronic? @ -Acute Uncomplicated (without systemic symptoms) or Complicated (systemic symptoms)? @ -Uncomplicated Side effects of treatment? @ -No Exacerbation, Progression, or Severe Exacerbation? @ -No Poses a threat to life or bodily function? How? (Chest pain, [place], [place], pneumonia, PE, COPD, DKA, ARF, appy, cholecystitis, CVA, Diverticulitis, Homicidal, Suicidal, threat to staff... and all critical care pts) @ -Potential if the patient does not follow-up with orthopedics Disposition Clinical Impression: Lateral malleolar fracture Disposition: HOME SELF-CARE Condition: Good Instructions (If sedation given, give patient instructions): Ankle Fracture (ED) Additional Instructions: Follow-up with orthopedics. Report back to ER with any new or worsening symptoms. Keep your splint on at all times until removed by orthopedics. Use your crutches and remain nonweightbearing on the affected leg. Take Motrin and Tylenol as needed for pain control. Rest ice and elevate the foot. Is patient prescribed a controlled substance at d/c from ED?: No Referrals: Alden Burgos MD [Primary Care Provider] - 1-2 days Elroy Kirby MD [Medical Doctor] - 1-2 days Time of Disposition: 19:00
[2024-04-18 19:17] VITALS: BP 127/69; PULSE 112; RESP 18
== END 2024-04-18 19:13 | disposition home or self-care (01) ==
LOC: EC 16:47
DX: S82.62XA Displaced fracture of lateral malleolus of left fibula, initial encounter for closed fracture (principal); F17.290 Nicotine dependence, other tobacco product, uncomplicated; X50.1XXA Overexertion from prolonged static or awkward postures, initial encounter; Y93.01 Activity, walking, marching and hiking
CPT/HCPCS: 73610; 99283; 96372; 29515; J1885

== ENCOUNTER 2024-08-12 12:17 | Emergency (ER) | payer OTHER ==
[2024-08-12 12:32] VITALS: RESP 18
--- NOTE | 2024-08-12 12:47 | ED ---
General Adult HPI - General Chief complaint: Skin/Abscess/Foreign Body Stated complaint: Rash Time Seen by Provider: 08/12/24 12:27 Source: patient Mode of arrival: ambulatory - History of Present Illness Initial comments: Dictation was produced using [employer] dictation software. please excuse any grammatical, word or spelling errors. Chief Complaint: 43-year-old female itchy rash after camping outside History of Present Illness: Patient is a 43-year-old female denies any significant comorbidities states that she was spending some time outdoor. She was sitting at night around a campfire 2 nights ago out in the elements. States that the morning after she started to have these itchy spots affecting her feet arms upper neck. Patient states that she attracts mosquitoes and bugs gets bitten a lot. Not sure if she has bedbugs. States that the itchy spots are focal to her exposed skin including her extremities and feet. Denies any fever chills or night sweats. States that the bug bites are starting to cause some burning sensation to her extremities. The ROS documented in this emergency department record has been reviewed and confirmed by me. Those systems with pertinent positive or negative responses have been documented in the HPI. All other systems are other negative and/or noncontributory. - Related Data Home Medications Medication Instructions Recorded Confirmed ALPRAZolam [Xanax] 0.5 mg PO TID PRN 03/03/24 06/29/24 Buprenorphine HCl/Naloxone HCl 1 each SL TID 03/03/24 06/29/24 [Suboxone 8 mg-2 mg Sl Film] Dextroamphetamine/Amphetamine 20 mg PO BID 03/03/24 06/29/24 [Adderall] QUEtiapine [SEROquel] 300 mg PO HS 03/03/24 06/29/24 Rosuvastatin [Crestor] 20 mg PO HS 03/03/24 06/29/24 Previous Rx's Medication Instructions Recorded Lactulose 30 ml PO BID #500 ml 03/09/24 Omeprazole [PriLOSEC] 40 mg PO DAILY #14 cap 03/09/24 methylPREDNISolone Dose Pack 4 mg PO DIRECTED #1 packet 08/12/24 [Medrol Dose Pack] Allergies Allergy/AdvReac Type Severity Reaction Status Date / Time Iodinated Contrast Media Allergy Severe Anaphylaxis Verified 08/12/24 12:32 shellfish derived [Shellfish] Allergy Severe Anaphylaxis Verified 08/12/24 12:32 sulfamethoxazole AdvReac Mild Diarrhea Verified 08/12/24 12:32 [From Bactrim] trimethoprim [From Bactrim] AdvReac Mild Diarrhea Verified 08/12/24 12:32 Opioids - Morphine Analogues AdvReac Does not Verified 08/12/24 12:32 want Opioids-Meperidine and AdvReac Does not Verified 08/12/24 12:32 Related want Opioids-Methadone and Related AdvReac Does not Verified 08/12/24 12:32 want Review of Systems ROS Statement: Those systems with pertinent positive or pertinent negative responses have been documented in the HPI. ROS Other: All systems not noted in ROS Statement are negative. Past Medical History Past Medical History: Asthma, GERD/Reflux, Hyperlipidemia, Seizure Disorder Additional Past Medical History / Comment(s): last seizure 10 yrs. ago, has BRCA-1 gene, History of Any Multi-Drug Resistant Organisms: ESBL Date of last positivie culture/infection: 08/06/21 ESBL E.coli MDRO Source:: Urine Past Surgical History: Appendectomy, Cholecystectomy, Hysterectomy, Orthopedic Surgery Additional Past Surgical History / Comment(s): LT arm surgery abscess removal, l leg abscess removal, EGD, COLONOSCOPY Past Anesthesia/Blood Transfusion Reactions: No Reported Reaction Additional Past Anesthesia/Blood Transfusion Reaction / Comment(s): no transfusion reactions Past Psychological History: Anxiety, Bipolar, Depression, PTSD Smoking Status: Former smoker, Vaper Past Alcohol Use History: None Reported Past Drug Use History: None Reported - Past Family History Sister(s) Family Medical History: Cancer Mother Family Medical History: Cancer Additional Family Medical History / Comment(s): breast General Exam - General Exam Comments Initial Comments: General: Well-appearing, nontoxic, no acute distress. Head: Normocephalic, atraumatic Eyes: PERRLA, EOMI ENT: Airway patent Chest: Nonlabored breathing Skin: Diffuse raised red areas affecting the exposed skin including the lateral arms, feet. Rash appears to spare on exposed areas. No rash to the palms or soles. Oral mucosa and some conjunctival normal Neuro: Alert and oriented 3 Musculoskeletal: No gross abnormalities Course Vital Signs 08/12/24 12:26 Temperature 97.9 F Pulse Rate 93 Respiratory 18 Rate Blood Pressure 116/79 O2 Sat by Pulse 94 L Oximetry Medical Decision Making - Medical Decision Making Was pt. sent in by a medical professional or institution (, PA, PRESS ASSISTANT, urgent care, hospital, or intermediate...) When possible be specific @ -No Did you speak to anyone other than the patient for history (EMS, parent, family, police, friend...)? What history was obtained from this source @ -No Did you review nursing and triage notes (agree or disagree)? Why? @ -I reviewed and agree with nursing and triage notes Were old charts reviewed (outside hosp., previous admission, EMS record, old EKG, old radiological studies, urgent care reports/EKG's, intermediate records)? Report findings @ -No old charts were reviewed Differential Diagnosis (chest pain, altered mental status, abdominal pain women, abdominal pain men, vaginal bleeding, musculoskeletal, weakness, fever, dyspnea, syncope, headache, dizziness, GI bleed, back pain, seizure, CVA, palpatations, mental health)? @ -Molluscum contagiosum, smallpox, herpes zoster EKG interpreted by me (3pts min.). @ -None done X-rays interpreted by me (1pt min.). @ -None done CT interpreted by me (1pt min.). @ -None done U/S interpreted by me (1pt. min.). @ -None done What testing was considered but not performed or refused? (CT, X-rays, U/S, labs)? Why? @ -None What meds were considered but not given or refused? Why? @ -None Was smoking cessation discussed for >3mins.? @ -No Were there social determinants of health that impacted care today? How? (Homelessness, low income, unemployed, alcoholism, drug addiction, transportation, low edu. Level, literacy, decrease access to med. care, fpc, rehab)? @ -No Was there de-escalation of care discussed even if they declined (Discuss DNR or withdrawal of care, Hospice)? DNR status @ -No What co-morbidities impacted this encounter? (DM, HTN, Smoking, COPD, CAD, Cancer, CVA, ARF, Chemo, Hep., AIDS, mental health diagnosis, sleep apnea, morbid obesity)? @ -None Was patient admitted / discharged? Hospital course, mention meds given and route, prescriptions, significant lab abnormalities, going to OR and other pertinent info. @ -43-year-old female presents to the emergency department with diffuse acute rash secondary to bug bites. Vital signs stable. Patient prescribed Medrol Dosepak for symptom control. Discharge advised follow-up with primary doctor Did you discuss the management of the patient with other professionals (professionals i.e. , PA, PRESS ASSISTANT, lab, RT, psych nurse, social work manager, ruby on rails developer, teacher, army senior officer, case management associate)? Give summary @ -No Was critical care preformed (if so, how long)? @ -No Undiagnosed new problem with uncertain prognosis? @ -No Drug Therapy requiring intensive monitoring for toxicity (Heparin, Nitro, Insulin, Cardizem)? @ -No Were any procedures done? @ -No Diagnosis/symptom? Acute, or Chronic, or Acute on Chronic? Uncomplicated (without systemic symptoms) or Complicated (systemic symptoms)? @ -Bug bites Side effects of treatment? @ -No Exacerbation, Progression, or Severe Exacerbation? @ -No Poses a threat to life or bodily function? How? (Chest pain, [place], [place], pneumonia, PE, COPD, DKA, ARF, appy, cholecystitis, CVA, Diverticulitis, Homicidal, Suicidal, threat to staff... and all critical care pts) @ -No Disposition Clinical Impression: Bug bite Disposition: HOME SELF-CARE Condition: Fair Instructions (If sedation given, give patient instructions): Insect Bite or Sting (ED) Prescriptions: methylPREDNISolone Dose Pack [Medrol Dose Pack] 4 mg PO DIRECTED #1 packet Is patient prescribed a controlled substance at d/c from ED?: No Referrals: Alden Burgos MD [Primary Care Provider] - 1-2 days Time of Disposition: 12:47
[2024-08-12 12:57] VITALS: BP 112/78; PULSE 89; TEMP 98
== END 2024-08-12 12:58 | disposition home or self-care (01) ==
LOC: EC 12:17
DX: R21 Rash and other nonspecific skin eruption (principal); F17.290 Nicotine dependence, other tobacco product, uncomplicated; Z88.2 Allergy status to sulfonamides; Z88.1 Allergy status to other antibiotic agents; Z88.5 Allergy status to narcotic agent; Z91.041 Radiographic dye allergy status; Z91.013 Allergy to seafood
CPT/HCPCS: 99282